=== PATIENT | female | born 1970 | race Caucasian/White ===

== ENCOUNTER → 2017-10-29 14:42 | Outpatient (REF) | payer BC, SELFPAY ==
[2017-10-29 17:34] LABS: Basophils % 0.6 % (0.1-2.0); Eosinophils # 0.4 K/mm3 (0.0-0.4); Eosinophils % 6.8 % (0.1-12.0); Hematocrit 37.9 % (37.0-47.0); Hemoglobin 12.4 g/dL (12.2-16.2); Lymphocytes # 2.1 K/mm3 (0.7-4.5); Lymphocytes % 32.5 K/mm3 (10-50); Mean Corpuscular HGB Conc 32.6 g/dL (31.8-35.4); Mean Corpuscular Hemoglobin 27.8 pg (27.0-31.2); Mean Corpuscular Volume 85.4 fl (81-99); Mean Platelet Volume 8.7 fl (7.4-10.4); Monocytes # 0.4 K/mm3 (0.1-1.0); Monocytes % 5.9 % (1.7-9.3); Neutrophils # 3.5 K/mm3 (1.8-7.8); Neutrophils % 54.2 % (37.0-80.0); Platelet Count 208 K/mm3 (142-424); Red Blood Count 4.44 M/mm3 (4.20-5.40); Red Cell Distribution Width 13.4 % (11.5-17.5); White Blood Count 6.4 K/mm3 (4.8-10.8)
[2017-10-29 18:08] LABS: Alanine Aminotransferase 31 U/L (12-78); Albumin Level 3.6 gm/dL (3.4-5.0); Albumin/Globulin Ratio 1.1 (1.1-1.8); Alkaline Phosphatase 65 U/L (46-116); Anion Gap 13.6 mEq/L (5-15); Aspartate Amino Transferase 21 U/L (15-37); Bilirubin,Total 0.3 mg/dL (0.2-1.0); Blood Urea Nitrogen 10 mg/dL (7-18); Calcium 9.2 mg/dL (8.5-10.1); Carbon Dioxide 29 mmol/L (21.0-32.0); Chloride 102 mmol/L (98-107); Chol/HDL Ratio 4.3 (1-3.5); Cholesterol 168 mg/dL (140-200); Creatinine,Serum 0.74 mg/dL (0.55-1.02); Estimated Glomerular Filt Rate 84 ml/min (>60); Free T4 (Free Thyroxine) 0.92 ng/dl (0.76-1.46); GFR (African American) 102 ML/MIN (>60); Globulin 3.4 gm/dl (1.3-3.2); Glucose 134 mg/dL (74-106); HDL Cholesterol 39 mg/dL (29-89); LDL Cholesterol 86 mg/dL (0-130); Potassium 3.6 mmoL/L (3.5-5.1); Sodium 141 mmol/L (136-145); Thyroid Stimulating Hormone 1.72 uIU/ml (0.358-3.740); Triglycerides 215 mg/dL (30-200); VLDL Cholesterol 43 mg/dL (0-40)
[2017-10-29 18:22] LABS: Hemoglobin A1C 5.6 % (0.0-7.0)
[2017-10-31 20:25] LABS: Vitamin D 25 Hydroxy 23.7 ng/mL (30.0-100.0)
== END ==
LOC: LAB 14:42
PROVIDERS: Visit Provider Nurse Practitioner Family
DX: E11.9 Type 2 diabetes mellitus without complications (principal); R53.83 Other fatigue
CPT/HCPCS: 80053; 80061; 82652; 83036; 84439; 84443; 85025

== ENCOUNTER 2018-01-07 07:00 | Outpatient (RCR) | payer BC, SELFPAY ==
--- NOTE | 2017-11-19 08:42 | HMH.OTOPEV ---
OT Inpatient Evaluation Rehab OT Outpatient Eval Start: 11/19/17 08:26 Freq: Status: Active Protocol: Document 11/19/17 08:27 TFRY (Rec: 11/19/17 08:42 TFRY [id number]) Electronically Signed By Iliana Charles, OT 11/19/17 08:27 Outpatient Therapy Subjective History Subjective History THIS IS A 47 YEAR OLD RIGHT HANDED FEMALE REFERRED TO OCCUPATIONAL THERAPY FOR LATERAL EPICONDYLITIS OF LEFT ELBOW. PATIENT REPORTS REACHING OVERHEAD AND PULLING MUSCLE SHE THOUGHT BUT HAS CONTINUED TO GET WORSE OVER THE PAST MONTH. Chief Complaint Pain Symptom Type Ache Throb Symptoms Relieved By Rest/Positioning Symptoms Aggravated By Physical Activity Prior Functional Limitations None Current Functional Limitations Reaching Lifting Housework Dressing Driving Sleeping Symptom Description Constant but Variable Level of pain today (0-10) 5 Pain scale - at its best (0-10) 3 Pain scale - at its worst (0-10) 8 Shoulder/Elbow Eval Shoulder Objective Measurements Elbow Objective Measurements Elbow ROM Left full ROM elbow exam standard left pain with active ROM elbow exam standard left pain with passive ROM elbow exam left standard Elbow Extension Active Range of Motion ( WFL degrees) Elbow Extension Passive Range of Motion WFL (degrees) Elbow Flexion Active Range of Motion ( WFL degrees) Elbow Flexion Passive Range of Motion ( WFL degrees) Elbow Pronation of Forearm Range of WFL Motion (degrees) Elbow MMT Elbow Flexion Strength Grade 4 Good Biceps Brachii Strength Grade 4 Good Brachioradialis Strength Grade 4 Good Brachialis Strength Grade 4 Good Brachialis Strength Grade (Flexion) 4 Good Elbow Extension Strength Grade 4 Good Triceps Brachii Strength Grade 4 Good OT Outpatient Assessment Impairments Problems/Impairments Palpation Tenderness Impaired Strength Impaired Lifting Impaired Dressing Impaired Shower/Bathing Impaired Household Care Impaired Work Activities Subjective C/O
== END 2018-01-07 07:01 | disposition home or self-care (01) ==
LOC: OT 07:00
PROVIDERS: Family Provider Physician Assistant; PCP Physician Assistant; Visit Provider Physician Assistant
DX: M77.12 Lateral epicondylitis, left elbow (principal)
CPT/HCPCS: 97014; 97033; 97110; 97140; 97165; G0283

== ENCOUNTER → 2018-02-09 09:28 | Outpatient (POV) | payer BC, SELFPAY | PROVIDERS: Visit Provider Otolaryngology | DX: Z00.00 Encounter for general adult medical examination without abnormal findings (principal) ==

== ENCOUNTER → 2018-02-24 20:08 | Outpatient (REF) | payer BC, SELFPAY | LOC: LAB 20:08 | PROVIDERS: Visit Provider Nurse Practitioner Family | DX: J02.9 Acute pharyngitis, unspecified (principal) ==

== ENCOUNTER → 2018-08-29 11:35 | Outpatient (CLI) | payer OTHER, SELFPAY ==
--- NOTE | 2018-08-29 09:12 | XR_ITS ---
XR knee RT 3V HISTORY: Medial knee pain ITS.REASON: KNEE PAIN ORDERING PHYSICIAN: Aranza King PATIENT AGE: 48 years COMPARISON: None FINDINGS: There are moderate osteoarthritic changes involving all 3 compartments with osteophyte formation and slight decrease in the joint spaces. No fracture or dislocation evident. No lytic or blastic change. IMPRESSION: Moderate tricompartmental osteoarthritis
== END ==
PROVIDERS: PCP Physician Assistant; Visit Provider Nurse Practitioner Family
DX: M25.561 Pain in right knee (principal)
CPT/HCPCS: 73562

== ENCOUNTER → 2018-09-02 13:56 | Outpatient (CLI) | payer OTHER, SELFPAY ==
--- NOTE | 2018-09-02 14:09 | XR_ITS ---
XR knee RT 4V HISTORY: Right knee pain and swelling ITS.REASON: right knee 4 views weightbearing ORDERING PHYSICIAN: Yann Aguirre MD PATIENT AGE: 48 years COMPARISON: 08/29/2018 FINDINGS: There are moderate tricompartmental osteoarthritic changes similar to the previous exam. No acute fracture or dislocation is evident. There is a 6 mm calcific density along the posterior aspect of the proximal tibia and may represent a loose intra-articular body versus atypical osteophyte. IMPRESSION: No change moderate osteoarthritis
== END ==
PROVIDERS: PCP Emergency Medicine; Visit Provider Orthopaedic Surgery
DX: M25.561 Pain in right knee (principal)
CPT/HCPCS: 73564

== ENCOUNTER 2019-09-25 09:45 | Emergency (ER) | payer MEDICAID, SELFPAY ==
[2019-09-25 09:47] VITALS: BP 145/92; PULSE 72; RESP 20; TEMP 36.8; O2SAT 98; BMI 42.5
--- NOTE | 2019-09-25 10:22 | HMH.EDDIZZ ---
ED Disposition Clinical Impression: Benign paroxysmal positional vertigo, Hypertension, Otitis media Disposition: Home, Self-Care Condition on Discharge: Good Instructions: Vertigo Prescriptions: Amoxicillin [Amoxicillin 875MG Tab] 875 mg PO Q12H #14 tab Transmission Status: Pending to [email or web address] # Meclizine HCl 25 mg PO TID 10 Days #30 tab Transmission Status: Pending to [email or web address] # Referrals: Kim Roth PA [Primary Care Provider] - - Critical Care Critical Care Time: No Attestation: On 09/25/19, the high probability of a clinically significant, sudden or life threatening deterioration of the following system(s) required my full and direct attention, intervention and personal management. The time I documented below is in addition to time spent performing reported procedures but includes the following listed in this critical care notation. Medical Decision Making - Medical Records Medical records reviewed: Yes: I reviewed the patient's medical records. - Enoch Inquiry Pt receiving controlled substance: No Vital Signs: 09/25/19 09:47 Temperature 98.2 F Temperature Source Oral Pulse Rate [Right] 72 Respiratory Rate 20 Blood Pressure [Right Arm] 145/92 H Blood Pressure Mean [Right Arm] 109 02 Sat by Pulse Oximetry 98 - Lab Data Lab results reviewed: Yes: I reviewed the patient's lab results. Orders (Tests/Meds): ED MEDICATIONS Generic Name Dose Route Start Last Admin Trade Name Freq PRN Reason Stop Dose Admin Sodium Chloride 1,000 mls @ 999 mls/hr 09/25/19 10:30 Sod Chlor 0.9% 1000ml Bag IV 09/25/19 11:30 .Q1H1M CEE Discontinued Medications Generic Name Dose Route Start Last Admin Trade Name Freq PRN Reason Stop Dose Admin Meclizine HCl 25 mg 09/25/19 10:19 Antivert 25mg Tablet PO 09/25/19 10:20 ONCE ONE Ondansetron HCl 4 mg 09/25/19 10:19 Zofran 4mg/2ml Vial IV 09/25/19 10:20 ONCE ONE Dizzy HPI - General Chief Complaint: Dizziness Stated Complaint: vertigo,nausea Time Seen by Provider: 09/25/19 10:23 Mode of Arrival: Ambulatory Source of Information: Patient Limitations: No Limitations Description of Symptoms (Recalled from ER Triage Doc. by RN): C/O pressure and pain in both ears that is causing her vertigo. States this has happened to her before and she was dx with miernes disease. Denies soa, cough or fever. - History of Present Illness HPI Narrative: 49-year-old female presents the ED with acute vertigo. She has had vertigo in the past she said at 1 time during her life that lasted for 30 days and she saw 3 different specialist. Patient is complaining of right earache as well. She stated the earache started about 2 days ago and is progressively gotten worse to her presentation today. She rates her pain 5 out of 10 describes it as a sharp and fullness sensation and warmth sensation. She denies any alleviating or exacerbating factors. Patient denies any recent nausea vomiting diarrhea patient denies any loss of balance patient denies any recent subjective or objective fevers. - Related Data Previous Rx's Medication Instructions Recorded metformin 500 mg tablet 500 mg PO BID #180 tab 03/30/18 lisinopril 20 1 tab PO DAILY #90 tab 04/25/19 mg-hydrochlorothiazide 12.5 mg tablet Cefdinir [Omnicef 300mg Capsule] 300 mg PO BID 10 Days #20 cap 08/23/19 predniSONE [Deltasone 20mg 20 mg PO BID 30 Days #60 tab 08/23/19 tablet] Amoxicillin [Amoxicillin 875MG 875 mg PO Q12H #14 tab 09/25/19 Tab] Meclizine HCl 25 mg PO TID 10 Days #30 tab 09/25/19 Allergies Allergy/AdvReac Type Severity Reaction Status Date / Time erythromycin base Allergy Intermediate I-HIVES Verified 08/26/19 10:04 ibuprofen Allergy Intermediate SWELLING Verified 08/26/19 10:04 levofloxacin [From LEVAQUIN] Allergy Unknown S-DIFF. Verified 08/26/19 10:04 BREATHING [facility] History - Hepat
[2019-09-25 11:41] VITALS: BP 123/85; PULSE 85; RESP 20; TEMP 36.8; O2SAT 98
== END 2019-09-25 11:43 | disposition home or self-care (01) ==
PROVIDERS: Emergency Provider Family Medicine; PCP Physician Assistant
DX: H81.11 Benign paroxysmal vertigo, right ear (principal); H66.91 Otitis media, unspecified, right ear; E11.9 Type 2 diabetes mellitus without complications; I10 Essential (primary) hypertension; Z79.899 Other long term (current) drug therapy
CPT/HCPCS: 96365; 96375; 99281; 99282; J2405

== ENCOUNTER 2019-11-06 16:16 | Emergency (ER) | payer MEDICAID, SELFPAY ==
[2019-11-06 16:18] VITALS: BP 159/83; PULSE 76; RESP 20; TEMP 37.1; O2SAT 98; BMI 42.5
--- NOTE | 2019-11-06 16:31 | HMH.EDUTC ---
[facility] [place] Disposition Clinical Impression: Otitis media Qualifiers: Otitis media type: unspecified Laterality: right Qualified Code(s): H66.91 - Otitis media, unspecified, right ear Sinusitis Qualifiers: Sinusitis location: unspecified location Chronicity: unspecified Qualified Code(s): J32.9 - Chronic sinusitis, unspecified Disposition: Home, Self-Care Condition on Discharge: Good Instructions: Sinusitis, Sinus Headache, Middle Ear Infection, DI for Sinusitis, Prednisone, Amoxicillin and Clavulanic Acid Additional Instructions: *Monitor Temp, Over the counter Motrin or Tylenol as directed/as needed Tylenol every 4 hours and Motrin every 6 hours (as long as your family doctor has told you that you can take it) for fever or pain. and straight to ER if unable to lower temp less than 101.0 after medication given *Warm salt water gargles may help to soothe the throat *Throat Lozenges *Warm fluids like tea with honey may help to soothe the throat *Sleep elevated *Humidifier/Vaporizer Follow up with family doctor if no improvement and for further evaluation of new onset butterfly like rash on your nose and cheeks Return if needed Straight to ER if any life threatening symptoms Follow up IMMEDIATELY for new or worsening symptoms or no Noticeable improvement over the next 48-72 hours. 911 for difficulty breathing or swallowing Prescriptions: Amoxicillin/Potassium Clav [Augmentin 875-125 Tablet] 1 tab PO Q12H 7 Days #14 tab Transmission Status: Sent to [facility] # predniSONE [Deltasone 10mg tablet] 10 mg PO BID 5 Days #10 tab Transmission Status: Sent to [facility] # Referrals: Kim Roth PA [Primary Care Provider] - As needed Time of Disposition: 16:43 Medical Decision Making - Enoch Inquiry Pt receiving controlled substance: No Enoch was queried for this patient: No Vital Signs: 11/06/19 16:18 Temperature 98.7 F Temperature Source Oral Pulse Rate [Radial] 76 Respiratory Rate 20 Blood Pressure [Right Arm] 159/83 H Blood Pressure Mean [Right Arm] 108 Blood Pressure Source [Right Arm] Automatic Cuff Blood Pressure Position [Right Arm] Sitting 02 Sat by Pulse Oximetry 98 Oxygen Delivery Method Room Air Medical Decision Narrative: Upon examination noticed patient had butterfly rash on cheeks and across nose, discussed with patient when she noticed the rash and patient reported has been on and off for about 3 months recommended follow up with PCP for further evaluation and examination and patient agreed [facility] [place] HPI - General Stated complaint: Sinus pressure,Loss of voice, ears pain Time Seen by Provider: 11/06/19 16:31 Mode of Arrival: Ambulatory Source of Information: Patient Limitations: No Limitations Description of Symptoms (Recalled from Triage Doc. by RN): sinus pressure, right ear pain, losing voice HEENT Symptoms (Recalled from RN notes): Yes Resp Symptoms (Recalled from RN notes): No Skin Symptoms (Recalled from RN notes): No MS Symptoms (Recalled from RN notes): No Functional Status (Recalled from RN notes): wnl - History of Present Illness Provider Complaint: Patient states that she has been having sinus pain and pressure for over a week now hurting into her teeth and having bilateral ear pain with pain worse in right ear and today she woke up and she had lost her voice States that the pressure in her sinuses is worse so she came in - Related Data Previous Rx's Medication Instructions Recorded metformin 500 mg tablet 500 mg PO BID #180 tab 03/30/18 lisinopril 20 1 tab PO DAILY #90 tab 04/25/19 mg-hydrochlorothiazide 12.5 mg tablet Cefdinir [Omnicef 300mg Capsule] 300 mg PO BID 10 Days #20 cap 08/23/19 predniSONE [Deltasone 20mg 20 mg PO BID 30 Days #60 tab 08/23/19 tablet] Amoxicillin [Amoxicillin 875MG 875 mg PO Q12H #14 tab 09/25/19 Tab] Meclizine HCl 25 mg PO TID 10 Days #30 tab 09/25/19 estradiol 0.1 mg/24 hr weekly 1 patch T
[2019-11-06 16:49] VITALS: BP 159/83; PULSE 76; RESP 20; TEMP 37.1; O2SAT 98
== END 2019-11-06 16:50 | disposition home or self-care (01) ==
PROVIDERS: Emergency Provider Nurse Practitioner; PCP Physician Assistant
DX: H66.91 Otitis media, unspecified, right ear (principal); J32.9 Chronic sinusitis, unspecified; E11.9 Type 2 diabetes mellitus without complications; I10 Essential (primary) hypertension; Z79.84 Long term (current) use of oral hypoglycemic drugs; Z88.1 Allergy status to other antibiotic agents
CPT/HCPCS: 99201

== ENCOUNTER → 2019-11-07 14:59 | Outpatient (CLI) | payer MEDICAID, SELFPAY ==
[2019-11-07 16:12] LABS: Basophils # 0.1 K/mm3 (0-0.2); Basophils % 0.6 % (0.1-2.0); Eosinophils # 0.3 K/mm3 (0.0-0.4); Eosinophils % 4.5 % (0.1-12.0); Hematocrit 36.3 % (37.0-47.0); Hemoglobin 12.2 g/dL (12.2-16.2); Lymphocytes # 2.1 K/mm3 (0.7-4.5); Lymphocytes % 28.4 % (10-50); Mean Corpuscular HGB Conc 33.5 g/dL (31.8-35.4); Mean Corpuscular Hemoglobin 29.3 pg (27.0-31.2); Mean Corpuscular Volume 87.4 fl (81-99); Mean Platelet Volume 8.4 fl (7.4-10.4); Monocytes # 0.2 K/mm3 (0.1-1.0); Monocytes % 3.3 % (1.7-9.3); Neutrophils # 4.6 K/mm3 (1.8-7.8); Neutrophils % 63.1 % (37.0-80.0); Platelet Count 187 K/mm3 (142-424); Red Blood Count 4.16 M/mm3 (4.20-5.40); Red Cell Distribution Width 14.1 % (11.5-17.5); White Blood Count 7.3 K/mm3 (4.8-10.8)
[2019-11-07 17:17] LABS: Chloride 102 mmol/L (98-107); Sodium 136 mmol/L (136-145)
[2019-11-07 17:18] LABS: Potassium 3.7 mmoL/L (3.5-5.1)
[2019-11-07 17:20] LABS: Alanine Aminotransferase 43 U/L (12-78); Albumin/Globulin Ratio 1.4 (1.1-1.8); Alkaline Phosphatase 72 U/L (38-126); Anion Gap 10.7 mEq/L (5-15); Aspartate Amino Transferase 33 U/L (14-36); Bilirubin,Total 0.6 mg/dl (0.2-1.3); Blood Urea Nitrogen 11 mg/dl (7-17); Calcium 8.8 mg/dl (8.4-10.2); Carbon Dioxide 27 mmol/L (22.0-30.0); Estimated Glomerular Filt Rate 106 ml/min (>60); GFR (African American) 129 ML/MIN (>60); Globulin 2.8 g/dL (1.3-3.2); Glucose 168 mg/dl (74-100); Total Protein,Serum 6.8 g/dl (6.3-8.2)
[2019-11-07 17:52] LABS: Thyroid Stimulating Hormone 1.54 uIU/mL (0.465-4.68)
[2019-11-07 18:10] LABS: Erythrocyte Sedimentation Rate 25 mm/hr (0-20)
[2019-11-09 11:40] LABS: Hemoglobin A1C 5.7 % (4.0-6.0)
[2019-11-09 14:11] LABS: Anti-Centromere B Antibodies <0.2 AI (0.0-0.9); Anti-Jo-1 <0.2 AI (0.0-0.9); Anti-Smith Antibody <0.2 AI (0.0-0.9); Antichromatin Antibodies <0.2 AI (0.0-0.9); Antiscleroderma-70 Antibodies <0.2 AI (0.0-0.9); RNP Antibodies 0.5 AI (0.0-0.9); Sjogren's Anti-SS-A <0.2 AI (0.0-0.9); Sjogren's Anti-SS-B <0.2 AI (0.0-0.9)
[2019-11-09 18:09] LABS: Anti-DNA (DS) Ab Qn <1 IU/mL (0-9); RA Latex Turbid. <10.0 IU/mL (0.0-13.9)
[2019-11-10 01:14] LABS: PTT-LA 30.6 sec (0.0-51.9); dRVVT 42.2 sec (0.0-47.0)
[2019-11-10 10:13] LABS: Anti-Cyclic Citrullinated Pept 4 units (0-19); Lupus Reflex Interpretation Comment: (.)
== END ==
PROVIDERS: Visit Provider Physician Assistant
DX: R21 Rash and other nonspecific skin eruption (principal); R53.83 Other fatigue; R73.09 Other abnormal glucose
CPT/HCPCS: 36415; 80053; 83036; 84443; 85025; 85613; 85651; 86140; 86200; 86225; 86235; 86431

== ENCOUNTER 2019-12-05 13:03 | Emergency (ER) | payer MEDICAID, SELFPAY ==
[2019-12-05 13:04] VITALS: BP 157/91; PULSE 66; RESP 20; TEMP 36.6; O2SAT 98; BMI 42.5
--- NOTE | 2019-12-05 13:32 | HMH.EDUTC ---
[facility] [place] Clinical Impression: Gastroenteritis Disposition: Home, Self-Care Condition on Discharge: Good Instructions: Viral Gastroenteritis, DI for Viral Gastroenteritis -- Adult Additional Instructions: Drink plenty of fluids. Take tylenol or ibuprofen for pain or fever. Take the medications as directed. Follow up with your regular doctor. GO TO THE ER FOR ANY WORSENING SYMPTOMS Prescriptions: Ondansetron [Zofran 4mg ODT] 4 mg PO Q8HP PRN #20 tab.rapdis PRN Reason: Nausea Transmission Status: Received by [facility] #[id number] Referrals: Kim Roth PA [Primary Care Provider] - Forms: Work/School Release Time of Disposition: 14:42 Medical Decision Making - Medical Records Medical records reviewed: No: I reviewed the patient's medical records. - Enoch Inquiry Pt receiving controlled substance: No Vital Signs: 12/05/19 13:04 12/05/19 15:03 Temperature 97.9 F 97.9 F Temperature Source Oral Pulse Rate 66 Pulse Rate [Brachial] 66 Respiratory Rate 20 20 Blood Pressure 157/91 H Blood Pressure [Right Arm] 157/91 H Blood Pressure Mean [Right Arm] 113 Blood Pressure Source [Right Arm] Automatic Cuff Blood Pressure Position [Right Arm] Supine 02 Sat by Pulse Oximetry 98 Oxygen Delivery Method Room Air - Lab Data Lab Results 12/05/19 15:00: Stl Aeromonas (PCR) Not detected, Stl C. cayetanensis PCR Not detected, Stool Rotavirus (PCR) Not detected, Stl Adenov F 40/41 PCR Not detected, Stool Astrovirus (PCR) Not detected, Stool Campylobacter PCR Not detected, Stl C.difficile Tox PCR Not detected, Stool Cryptosporidium PCR Not detected, Stl E.coli Shiga Tox PCR Not detected, Stool E coli O157 PCR Not detected, Stl Enterotoxigenic E PCR Not detected, Stool EPEC (PCR) Not detected, Stool EAEC (PCR) Not detected, Stl E. histolytica PCR Not detected, Stool Giardia Lamblia PCR Not detected, Stool Salmonella PCR Not detected, Stool Sapovirus (PCR) Not detected, Stl P. shigelloides PCR Not detected, Stl Shigella/EIEC PCR Not detected, St Y.enterocolitica PCR Not detected, Stool Vibrio (PCR) Not detected, Stl Vibrio cholerae PCR Not detected, Stl Norovirus GI/GII PCR Not detected Orders (Tests/Meds): ED MEDICATIONS Discontinued Medications Generic Name Dose Route Start Last Admin Trade Name Fatimah PRN Reason Stop Dose Admin Sodium Chloride 1,000 mls @ 999 mls/hr 12/05/19 14:45 12/05/19 14:15 Sod Chlor 0.9% 1000ml Bag IV 12/05/19 15:45 999 mls/hr .Q1H1M CEE Administration Ondansetron HCl 4 mg 12/05/19 14:41 12/05/19 14:15 Zofran 4mg Odt SL 12/05/19 14:42 4 mg ONCE ONE Administration [facility] [place]PI - General Stated complaint: vomiting, diar, ear pain Time Seen by Provider: 12/05/19 13:05 - History of Present Illness Provider Complaint: She c/o right ear pain for the past 3 days. Then, last night she began vomiting and having diarrhea. She believes she has food poisoning. The last time she vomited was early this morning. She has had diarrhea repeatedly thru out today. - Related Data Previous Rx's Medication Instructions Recorded metformin 500 mg tablet 500 mg PO BID #180 tab 03/30/18 lisinopril 20 1 tab PO DAILY #90 tab 04/25/19 mg-hydrochlorothiazide 12.5 mg tablet Meclizine HCl 25 mg PO TID 10 Days #30 tab 09/25/19 estradiol 0.1 mg/24 hr weekly 1 patch TRANSDERMA QWEEK #4 each 10/05/19 transdermal patch Amoxicillin/Potassium Clav 1 tab PO Q12H 7 Days #14 tab 11/06/19 [Augmentin 875-125 Tablet] clindamycin phosphate 1 % topical 1 applic TOPICAL BID #30 g 11/07/19 gel Ondansetron [Zofran 4mg ODT] 4 mg PO Q8HP PRN #20 tab.rapdis 12/05/19 Allergies Allergy/AdvReac Type Severity Reaction Status Date / Time erythromycin base Allergy Intermediate I-HIVES Verified 11/07/19 10:52 ibuprofen Allergy Intermediate SWELLING Verified 11/07/19 10:52 levofloxacin [From LEVAQUIN] Allergy Unknown S-DIFF. Verified 0
[2019-12-05 15:03] VITALS: BP 157/91; PULSE 66; RESP 20; TEMP 36.6; O2SAT 98
[2019-12-05 15:31] LABS: Adenovirus F 40/41, stool Not Detected (NotDetected); Astrovirus Not Detected (NotDetected); Campylobacter Not Detected (NotDetected); Clostridium Difficile A/B, PCR Not Detected (NotDetected); Cryptosporidium Not Detected (NotDetected); Cyclospora Cayetanesis Not Detected (NotDetected); Entamoeba histolytica Not Detected (NotDetected); Enteroaggregative E coli Not Detected (NotDetected); Enteropathogenic E coli Not Detected (NotDetected); Enterotoxigenic E coli Not Detected (NotDetected); Giardia lamblia Not Detected (NotDetected); Norovirus Not Detected (NotDetected); Plesimonas Shigalloides, PCR Not Detected (NotDetected); Rotavirus A Not Detected (NotDetected); Salmonella, PCR Not Detected (NotDetected); Sapovirus Not Detected (NotDetected); Shiga-like toxin E coli Not Detected (NotDetected); Shigella Enterovasive E coli Not Detected (NotDetected); Vibrio Cholerae Not Detected (NotDetected); Vibrio, PCR Not Detected (NotDetected); Yersinia Entercolitica, PCR Not Detected (NotDetected)
== END 2019-12-05 15:05 | disposition home or self-care (01) ==
PROVIDERS: Emergency Provider Nurse Practitioner Family; PCP Physician Assistant
DX: K52.9 Noninfective gastroenteritis and colitis, unspecified (principal); E11.9 Type 2 diabetes mellitus without complications; I10 Essential (primary) hypertension
CPT/HCPCS: 87507; 96365; 99202

== ENCOUNTER → 2019-12-26 07:44 | Outpatient (CLI) | payer MEDICAID, SELFPAY ==
--- NOTE | 2019-12-26 07:45 | CA_ITS ---
APPROVED REPORT EXAM: Comprehensive 2D, Doppler, and color-flow Echocardiogram Patternmaker Pressure Cast: Berna Wick CRT Ht: 5 ft 8 in Wt: 301lbs BSA: 2.43 BP: 162/108 mmHg Indications: Shortness of Breath, Diabetes, Palpitations, Hypertension/HDD 2D Dimensions LVOT 2.05 cm (M/F) 1.5-2.5 M-Mode Dimensions RVDd 2.28 cm (0.9-2.6) LVDd 5.54 cm (3.5-5.7) LVDs 4.44 cm (3.5-5.7) IVSd 1.14 cm (0.6-1.1) PWd 0.53 cm (0.6-1.1) EF (Teich) 40.20% FS 19.90% EDV (Teich) 149.90 mL ESV (Teich) 89.60 mL LV Diastology E/A Ratio 0.88 Mitral Valve MV A Velocity 89.00 (40-130 cm/s) Left Ventricle Technically difficult study because of the patient factors and poor acoustic windows. Endocardial surfaces are poorly visualized. Left atrium is mildly enlarged, left ventricle is normal size, mild concentric left ventricular hypertrophy, visually estimated ejection fraction 50%, there appears to be moderate hypokinesis involving the distal septum and apical wall. A repeat study with Definity contrast is recommended. Grade 1 diastolic dysfunction seen without tissue Doppler evidence of raise left atrial pressure. Right Ventricle Right atrium and right ventricular normal size and contractility. Aortic Valve Aortic valve is minimally thickened and fibrosed, there is no aortic stenosis or aortic insufficiency. Mitral Valve Mitral valve is grossly normal, there is mild mitral regurgitation. Tricuspid Valve Tricuspid valve is grossly normal, there is mild tricuspid regurgitation, tricuspid regurgitation jet velocity is inadequate for calculation of the right ventricular systolic pressure. Pulmonic Valve Pulmonic valve is poorly visualized. Great Vessels Aortic root is normal size. Pericardium No significant pericardial effusion noted. Conclusion 1. Technically difficult study because of the patient factors and poor acoustic windows, repeat study with Definity contrast is recommended. 2. Mildly enlarged left atrium, normal left ventricular size, mild concentric left ventricular hypertrophy, visually estimated ejection fraction 50% with possible segmental wall motion abnormalities as described above. Grade 1 diastolic dysfunction seen without tissue Doppler evidence of raise left atrial pressure. 3. Mild mitral and tricuspid regurgitation. 4. No significant pericardial effusion noted. Electronically signed by : Anthony Dickens, 12/26/2019 17:43:50
== END ==
PROVIDERS: PCP Physician Assistant; Visit Provider Physician Assistant
DX: R06.00 Dyspnea, unspecified (principal); R60.9 Edema, unspecified
CPT/HCPCS: 93306

== ENCOUNTER 2019-12-31 18:59 | Emergency (ER) | payer MEDICAID, SELFPAY ==
[2019-12-31 19:09] VITALS: BP 160/92; PULSE 71; RESP 20; TEMP 36.7; O2SAT 95; BMI 38.0
--- NOTE | 2019-12-31 19:36 | HMH.EDUTC ---
[facility] [place] Clinical Impression: Otitis media Qualifiers: Otitis media type: suppurative Chronicity: acute Laterality: right Recurrence: non-recurrent Spontaneous tympanic membrane rupture: without spontaneous rupture Qualified Code(s): H66.001 - Acute suppurative otitis media without spontaneous rupture of ear drum, right ear Disposition: Home, Self-Care Condition on Discharge: Good Instructions: Middle Ear Infection Additional Instructions: Start antibiotic as soon as possible and be sure to take as ordered for full length of time even though he should start feeling better in 24-48 hours. Tylenol or Motrin as needed for pain or fever Encourage fluids, water, Gatorade, Powerade, Pedialyte if /toddler/child Warm compresses often helps when placed over ear Return immediately for new or worsening symptoms no noticeable improvement in 48-72 hours and in 10-14 days to ensure the ears are return to baseline. Follow-up with primary care Prescriptions: Amoxicillin [Amoxicillin 500mg Tab] 500 mg PO BID 10 Days #20 tab Prescription Printed Referrals: Kim Roth PA [Primary Care Provider] - Time of Disposition: 19:41 Medical Decision Making - Enoch Inquiry Pt receiving controlled substance: No Vital Signs: 12/31/19 19:09 Temperature 98.0 F Temperature Source Oral Pulse Rate [Radial] 71 Respiratory Rate 20 Blood Pressure [Right Arm] 160/92 H Blood Pressure Mean [Right Arm] 114 Blood Pressure Source [Right Arm] Automatic Cuff Blood Pressure Position [Right Arm] Sitting 02 Sat by Pulse Oximetry 95 Oxygen Delivery Method Room Air [facility] [place] HPI - General Chief complaint: Ear Stated complaint: Ear pain Time Seen by Provider: 12/31/19 19:36 Mode of Arrival: Ambulatory Source of Information: Patient Limitations: No Limitations Description of Symptoms (Recalled from Triage Doc. by RN): right ear pain, sinus pain HEENT Symptoms (Recalled from RN notes): Yes Resp Symptoms (Recalled from RN notes): No Skin Symptoms (Recalled from RN notes): No MS Symptoms (Recalled from RN notes): No Functional Status (Recalled from RN notes): wnl - History of Present Illness Provider Complaint: 49 yr old female presents for rt ear pain and tenderness to jaw and around neck. - Related Data Previous Rx's Medication Instructions Recorded metformin 500 mg tablet 500 mg PO BID #180 tab 03/30/18 amoxicillin 875 mg-potassium 1 tab PO BID 10 Days #20 tab 12/07/19 clavulanate 125 mg tablet fluticasone propionate 50 1 spray INTRANASAL BID 30 Days 12/07/19 mcg/actuation nasal #9.9 g spray,suspension furosemide 20 mg tablet 20 mg PO DAILY #15 tab 12/07/19 lisinopril 20 1 tab PO DAILY #90 tab 12/15/19 mg-hydrochlorothiazide 12.5 mg tablet Amoxicillin [Amoxicillin 500mg Tab] 500 mg PO BID 10 Days #20 tab 12/31/19 Allergies Allergy/AdvReac Type Severity Reaction Status Date / Time erythromycin base Allergy Intermediate I-HIVES Verified 12/07/19 10:40 ibuprofen Allergy Intermediate SWELLING Verified 12/07/19 10:40 levofloxacin [From LEVAQUIN] Allergy Unknown S-DIFF. Verified 12/07/19 10:40 BREATHING - Worker's Comp Is this a Worker's Comp case?: No [facility] History - Hepatitis A Screen Drug use history?: No High risk sexual behaviors?: No History of sexually transmitted infection?: No Currently employed?: No Childcare worker?: No Do you have indoor plumbing?: Yes Do you have electricity?: Yes Attestation statement:: This patient has been screened for Hepatitis A risk factors. I have reviewed the patient's past medical history: Yes Medical History: Reports:: Cancer, Diabetes Mellitus Type 2, Hypertension Denies:: Diabetes Mellitus Type 1, MRSA Comment: Hypertension. Shingles Other Surgeries: Yes: Cancer Surgery, Cholecystectomy, Colonoscopy, , Hysterectomy-Total, Hysterectomy-Partial, Tubal Ligation Amputation: No Fractures: No Comment: Primary --1993. Repeat ,
[2019-12-31 20:20] VITALS: BP 160/92; PULSE 71; RESP 20; TEMP 36.7; O2SAT 95
== END 2019-12-31 20:22 | disposition home or self-care (01) ==
PROVIDERS: Emergency Provider Nurse Practitioner Family; PCP Physician Assistant
DX: H66.001 Acute suppurative otitis media without spontaneous rupture of ear drum, right ear (principal); E11.9 Type 2 diabetes mellitus without complications; Z79.84 Long term (current) use of oral hypoglycemic drugs; I10 Essential (primary) hypertension; Z88.1 Allergy status to other antibiotic agents; Z90.49 Acquired absence of other specified parts of digestive tract; Z90.710 Acquired absence of both cervix and uterus; Z79.899 Other long term (current) drug therapy
CPT/HCPCS: 96372; 99201

== ENCOUNTER → 2020-01-03 10:41 | Outpatient (CLI) | payer MEDICAID, SELFPAY ==
--- NOTE | 2020-01-03 10:51 | CA_ITS ---
APPROVED REPORT EXAM: Limited 2D Echocardiogram with contrast Human Resources Clerk: Lily Tan RDCS Ht: 5 ft 8 in Wt: 301lbs BSA: 2.43 BP: 162/100 mmHg Indications: repeat with definity Conclusion 1. Limited study with Definity contrast is obtained. 2. Normal left ventricular size, preserved left ventricular systolic function, visually estimated ejection fraction 55% with no regional wall motion abnormality, there is no left ventricular thrombus seen. Electronically signed by : Anthony Dickens, 01/03/2020 18:08:41
== END ==
PROVIDERS: PCP Physician Assistant; Visit Provider Physician Assistant
DX: R06.00 Dyspnea, unspecified (principal); I10 Essential (primary) hypertension
CPT/HCPCS: 93308

== ENCOUNTER → 2020-04-13 12:42 | Outpatient (CLI) | payer SELFPAY | PROVIDERS: PCP Physician Assistant; Visit Provider Physician Assistant | DX: G47.33 Obstructive sleep apnea (adult) (pediatric) (principal); R40.0 Somnolence | CPT/HCPCS: 95806 ==

== ENCOUNTER 2020-08-20 15:10 | Emergency (ER) | payer SELFPAY ==
[2020-08-20 15:26] VITALS: BP 135/70; PULSE 73; RESP 14; TEMP 36.8; O2SAT 96; BMI 44.4
--- NOTE | 2020-08-20 15:39 | HMH.EDUTC ---
[facility] [place] Clinical Impression: Sinusitis Qualifiers: Sinusitis location: unspecified location Chronicity: unspecified Qualified Code(s): J32.9 - Chronic sinusitis, unspecified Otitis media Qualifiers: Otitis media type: unspecified Laterality: bilateral Qualified Code(s): H66.93 - Otitis media, unspecified, bilateral Disposition: Home, Self-Care Condition on Discharge: Good Instructions: Middle Ear Infections (Alternative Therapy), Sinusitis, Middle Ear Infection, DI for Sinusitis, Amoxicillin and Clavulanic Acid Additional Instructions: *Monitor Temp, Over the counter Motrin or Tylenol as directed/as needed Tylenol every 4 hours and Motrin every 6 hours (as long as your family doctor has told you that you can take it) for fever or pain. and straight to ER if unable to lower temp less than 101.0 after medication given *Warm salt water gargles may help to soothe the throat *Throat Lozenges *Warm fluids like tea with honey may help to soothe the throat *Sleep elevated *Humidifier/Vaporizer *Flonase 2 sprays in each nostril daily but be aware that it may take 2-3 days before you notice improvement Take medication as prescribed As advised Solu Medrol may increase your blood sugar for a couple of days then return to normal Follow up IMMEDIATELY for new or worsening symptoms or no Noticeable improvement over the next 48-72 hours. 911 for difficulty breathing or swallowing Prescriptions: Amoxicillin/Potassium Clav [Augmentin 875-125 Tablet] 1 tab PO Q12H 10 Days #20 tab Transmission Status: Received by [facility] #[id number] Referrals: Kim Roth PA [Primary Care Provider] - As needed Time of Disposition: 15:53 Medical Decision Making - Enoch Inquiry Pt receiving controlled substance: No Enoch was queried for this patient: No Vital Signs: 08/20/20 15:26 Temperature 98.2 F Temperature Source Oral Pulse Rate [Right] 73 Respiratory Rate 14 Blood Pressure [Right Arm] 135/70 Blood Pressure Mean [Right Arm] 91 Blood Pressure Source [Right Arm] Automatic Cuff Blood Pressure Position [Right Arm] Sitting 02 Sat by Pulse Oximetry 96 Oxygen Delivery Method Room Air Orders (Tests/Meds): ED MEDICATIONS Discontinued Medications Generic Name Dose Route Start Last Admin Trade Name Freq PRN Reason Stop Dose Admin Ceftriaxone Sodium 1 gm 03/29/21 15:48 08/20/20 16:07 Ceftriaxone 1gm Vial IM 08/20/20 15:49 1 gm ONCE ONE Administration Protocol Lidocaine HCl 0 ml 08/20/20 15:48 08/20/20 16:07 Lidocaine 1% 5ml Pf Vial IM 08/20/20 15:49 2 ml ONCE ONE Administration Methylprednisolone Sodium Succinate 125 mg 08/20/20 15:48 08/20/20 16:07 Methylprednisolone Sod Succ 125mg Vial IM 08/20/20 15:49 125 mg ONCE ONE Administration [facility] [place] - General Stated complaint: ears and lost of voice Time Seen by Provider: 08/20/20 15:39 Mode of Arrival: Ambulatory Source of Information: Patient Limitations: No Limitations Description of Symptoms (Recalled from Triage Doc. by RN): pt has lost her voice, she is having bilateral ear pain and a HENRIQUEZ. HEENT Symptoms (Recalled from RN notes): Yes (bilateral ear pain and HENRIQUEZ) Resp Symptoms (Recalled from RN notes): No Skin Symptoms (Recalled from RN notes): No MS Symptoms (Recalled from RN notes): No Functional Status (Recalled from RN notes): na - History of Present Illness Provider Complaint: Patient state that she is having bilateral ear pain headache and has lost her voice State that today her ears are hurting worse so she come in to have them checked States that she has had pain and pressure in her sinuses for over week State that her whole face hurts State that she has recurring ear infections and sinus infections and has to come in and get shots and oral medications to help clear them up - Related Data Previous Rx's Medication Instructions Recorded metformin 500 mg tablet 500 mg PO BID #180 tab 03/30/18 ce
[2020-08-20 16:13] VITALS: BP 129/79; PULSE 70; RESP 14; TEMP 36.6
== END 2020-08-20 16:13 | disposition home or self-care (01) ==
PROVIDERS: Emergency Provider Nurse Practitioner; PCP Physician Assistant
DX: J32.9 Chronic sinusitis, unspecified (principal); H66.93 Otitis media, unspecified, bilateral; E11.9 Type 2 diabetes mellitus without complications; I10 Essential (primary) hypertension; M79.7 Fibromyalgia; Z79.899 Other long term (current) drug therapy
CPT/HCPCS: 96372; 99202; G0463

== ENCOUNTER 2020-12-26 09:02 | Emergency (ER) | payer SELFPAY ==
[2020-12-26 09:02] VITALS: BP 108/69; PULSE 71; RESP 18; TEMP 36.7; O2SAT 99; BMI 36.5
--- NOTE | 2020-12-26 09:41 | HMH.EDUTC ---
[facility] Disposition Clinical Impression: Bronchitis Sinusitis Qualifiers: Sinusitis location: unspecified location Chronicity: acute Recurrence: non-recurrent Qualified Code(s): J01.90 - Acute sinusitis, unspecified Disposition: Home, Self-Care Condition on Discharge: Good Instructions: DI for Sinusitis, DI for Acute Bronchitis Additional Instructions: Drink plenty of fluids. Take tylenol or ibuprofen for pain or fever. Take the medications as directed. Follow up with your regular doctor. GO TO THE ER FOR ANY WORSENING SYMPTOMS The cough medication (promethazine dm) will make you drowsy, so don't drive or operate heavy machinery after taking it. Prescriptions: Promethazine/Dextromethorphan [Promethazine-Dm Syrup] 5 ml PO Q6HP PRN #240 syrup PRN Reason: Cough Transmission Status: Received by [facility] #[id number] Amoxicillin [Amoxicillin 500mg Tab] 500 mg PO TID 10 Days #30 tab Transmission Status: Received by [facility] #[id number] guaiFENesin [Mucinex 600mg tablet] 1 - 2 tab PO BIDP PRN #30 tab.er.12h PRN Reason: Congestion Transmission Status: Received by [facility] #[id number] Referrals: Kim Roth PA [Primary Care Provider] - Forms: Work/School Release Time of Disposition: 10:15 Medical Decision Making - Medical Records Medical records reviewed: No: I reviewed the patient's medical records. - Enoch Inquiry Pt receiving controlled substance: No Vital Signs: 12/26/20 09:02 12/26/20 10:24 Temperature 98.0 F 98.0 F Temperature Source Oral Pulse Rate 71 Pulse Rate [Left Radial] 71 Respiratory Rate 18 18 Blood Pressure 108/69 L Blood Pressure [Right Arm] 108/69 L Blood Pressure Mean [Right Arm] 82 Blood Pressure Source Automatic Cuff Blood Pressure Source [Right Arm] Automatic Cuff Blood Pressure Position Sitting Blood Pressure Position [Right Arm] Sitting 02 Sat by Pulse Oximetry 99 Oxygen Delivery Method Room Air Orders (Tests/Meds): ED MEDICATIONS Discontinued Medications Generic Name Dose Route Start Last Admin Trade Name Freq PRN Reason Stop Dose Admin Ceftriaxone Sodium 1 gm 12/26/20 09:44 12/26/20 09:59 Ceftriaxone 1gm Vial IM 12/26/20 09:45 1 gm ONCE ONE Administration Protocol Lidocaine HCl 0 ml 12/26/20 09:44 12/26/20 09:59 Lidocaine 1% 5ml Pf Vial IM 12/26/20 09:45 2.1 ml ONCE ONE Administration Methylprednisolone Sodium Succinate 125 mg 12/26/20 09:44 12/26/20 09:59 Methylprednisolone Sod Succ 125mg Vial IM 12/26/20 09:45 125 mg ONCE ONE Administration [facility] HPI - General Stated complaint: hoarse, ear pain Time Seen by Provider: 12/26/20 09:30 Mode of Arrival: Ambulatory Source of Information: Patient Limitations: No Limitations Description of Symptoms (Recalled from Triage Doc. by RN): c/o ear pain, lost voice and sinus pain for 2 days. HEENT Symptoms (Recalled from RN notes): Yes Resp Symptoms (Recalled from RN notes): No Skin Symptoms (Recalled from RN notes): No MS Symptoms (Recalled from RN notes): No Functional Status (Recalled from RN notes): wnl - History of Present Illness Provider Complaint: She reports that for the past 3 days she has had worsening sinus congestion, cough, sore throat and she has been feeling bad. She denies any known covid exposure and she refuses a covid test today. - Related Data Previous Rx's Medication Instructions Recorded metformin 500 mg tablet 500 mg PO BID #180 tab 03/30/18 estradiol 0.1 mg/24 hr semiweekly 1 patch TRANSDERMA WEEKLY #1 each 06/01/20 transdermal patch lidocaine 5 % topical patch 1 patch TOPICAL DAILY #15 each 09/26/20 tizanidine 4 mg tablet 4 mg PO TID PRN #30 tab 09/26/20 lisinopril 20 See Rx Instructions .ROUTE 10/18/20 mg-hydrochlorothiazide 12.5 mg .COMPLEX #90 tab tablet Amoxicillin [Amoxicillin 500mg Tab] 500 mg PO TID 10 Days #30 tab 12/26/20 Promethazine/Dextromethorphan 5 ml PO Q6HP PRN
[2020-12-26 10:24] VITALS: BP 108/69; PULSE 71; RESP 18; TEMP 36.7; O2SAT 99
== END 2020-12-26 10:25 | disposition home or self-care (01) ==
PROVIDERS: Emergency Provider Nurse Practitioner Family; PCP Physician Assistant
DX: J01.90 Acute sinusitis, unspecified (principal); E11.9 Type 2 diabetes mellitus without complications; I10 Essential (primary) hypertension; Z79.899 Other long term (current) drug therapy
CPT/HCPCS: 96372; 99202; G0463

== ENCOUNTER → 2022-12-19 12:55 | Outpatient (CLI) | payer OTHER, SELFPAY ==
--- NOTE | 2022-12-19 13:36 | MR_ITS ---
FINAL REPORT TECHNIQUE: Multiplanar MR without contrast CLINICAL HISTORY: PAIN IN THORACIC SPINE right sided back pain since april feet tingling, burning and numbness FINDINGS: The vertebral heights are normal. Marrow signal pattern is unremarkable. Alignment is normal. Thoracic spinal cord shows a normal MR appearance. T1/2-T5-6: Unremarkable. T6-7: Moderate left paracentral disc protrusion resulting in left canal stenosis. T7-8: Small left lateral canal disc protrusion. T8-9: Moderate left lateral canal disc retrusion with mild left lateral recess stenosis. T9-10: Minimal annular disc bulge. T10-11: Minimal annular disc bulge. T11-12: Moderate left paracentral disc extrusion compressing the left spinal cord. T12-L1: Moderate annular disc bulge with small central disc protrusion and mild canal stenosis. 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 Reviewed, Interpreted and Dictated by Jacey Ruano MD Transcribed by Nicole Cartagena Authenticated and . [facility]
== END ==
PROVIDERS: PCP Nurse Practitioner Family; Visit Provider Physician Assistant
DX: M54.6 Pain in thoracic spine (principal)
CPT/HCPCS: 72146

== ENCOUNTER 2023-07-31 18:50 | Outpatient (CLI) | payer OTHER, SELFPAY | END 2023-07-31 23:59 | LOC: LAB.DROPOF 18:51 | PROVIDERS: PCP Family Medicine; Visit Provider Family Medicine | DX: R30.0 Dysuria (principal); B95.2 Enterococcus as the cause of diseases classified elsewhere | CPT/HCPCS: 87086 ==

== ENCOUNTER 2023-08-26 17:49 | Emergency (ER) | payer OTHER, SELFPAY ==
[2023-08-26 18:05] VITALS: BP 138/90; PULSE 84; RESP 18; TEMP 37.1; O2SAT 98; BMI 43.8
--- NOTE | 2023-08-26 18:08 | ED_ITS ---
Discharge Plan Disposition Patient Disposition: Home, Self-Care Condition: Good Prescriptions Prescriptions: New amoxicillin-pot clavulanate 875-125 mg Tablet 1 tab PO Q12H Qty: 20 0RF fluticasone propionate [Flonase Allergy Relief] 50 mcg/actuation spray ,suspension 2 spray intranasal DAILY Qty: 16 0RF Rx Instructions: administer into each nostril daily meclizine 25 mg tablet 25 mg PO TID PRN (Reason: dizziness) Qty: 12 0RF prednisone 20 mg tablet 20 mg PO BID 5 Days Qty: 10 0RF No Action torsemide 20 mg tablet 20 mg PO DAILY Patient Comments: TAKE 1 TABLET BY MOUTH DAILY. hydrochlorothiazide 25 mg tablet 25 mg PO DAILY Qty: 30 2RF estradiol 0.1 mg/24 hr patch semiweekly 1 patch TRANSDERMA WEEKLY Qty: 1 0RF Referrals Follow up/Referrals: Provider,Referral, MD [Primary Care Provider] - See instructions Activity Restrictions/Add. Instructions Additional Instructions/Restrictions: Start oral steriods and antibiotics tomorrow you was given injections in the [facility] today Take Meclizine as prescribed as needed Follow up with your Family Doctor if no improvement or any worsening of symptoms Follow up with ENT if symptoms persist and do not improve Over the counter Motrin and/or Tylenol for pain and/or Fever Do not drive if you are feeling dizzy Clinical Impressions Clinical Impression: Otitis media Qualifiers: Otitis media type: unspecified Laterality: bilateral Qualified Code(s): H66.93 - Otitis media, unspecified, bilateral Stand Alone Forms Stand Alone Forms: Work/School Release Instructions Patient Instructions: Middle Ear Infection, DI for Vertigo Discharge ED Provider: Yue Pascual [facility] [place] H[place] General Stated complaint: ear pain, pressure in face Time Seen by Provider: 08/26/23 18:08 History of Present Illness Provider Complaint: Patient states that she has been having pain and pressure in both ears and it makes her have vertigo States that she is also having some pain and pressure in her sinuses but that is common when her ears flare up and tonight her pain was worse and still having vertigo so she came in to get checked and get something for it Related Data Home Medications Medication Instructions Recorded Confirmed torsemide 20 mg tablet 20 mg PO DAILY 07/31/23 08/26/23 Previous Rx's Medication Instructions Recorded estradiol 0.1 mg/24 hr semiweekly 1 patch transdermal WEEKLY #1 ea 06/05/21 transdermal patch hydrochlorothiazide 25 mg tablet 25 mg PO DAILY #30 tabs 07/31/23 amoxicillin 875 mg-potassium 1 tab PO Q12H #20 tabs 08/26/23 clavulanate 125 mg tablet fluticasone propionate 50 2 spray intranasal DAILY #16 grams 08/26/23 mcg/actuation nasal spray,suspension (Flonase Allergy Relief) meclizine 25 mg tablet 25 mg PO TID PRN dizziness #12 tabs 08/26/23 prednisone 20 mg tablet 20 mg PO BID 5 days #10 tabs 08/26/23 Allergies Allergy/AdvReac Type Severity Reaction Status Date / Time erythromycin base Allergy Intermediate I-HIVES Verified 07/31/23 12:57 ibuprofen Allergy Intermediate SWELLING Verified 07/31/23 12:57 levofloxacin [From LEVAQUIN] Allergy Unknown S-DIFF. Verified 07/31/23 12:57 BREATHING PFSH PFS Disclaimer: The information contained in this section may have been updated after the patient was seen, as this information can be updated by other users. 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 Pap smear of vagina Skin tag of vulva Vasomotor symptoms due to menopause Sinusitis Otitis media Benign paroxysmal positional vertigo Asthma exacerbation Laryngitis Lumbar arthropathy Abdominal pain Low back pain Colon cancer Surgical History History of colonoscopy History of cholecystectomy History of hysterectomy Family History Grandmother Cancer Father Coronary artery disease Diabetes Hypertension Heart attack Mother Stroke Hypertension Social History Smoking Status: Never smoker alcohol intake: never substance use type: denies use current occupational status: employed Travel in the last 8 weeks: None household members: significant other and other housing: house 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 [employer] ROS Obtained: Yes All systems reviewed & no additional complaints except as documented and Yes Systems reviewed as appropriate & no additional complaints except as documented Constitutional Constitutional: Reports system reviewed and no additional complaints, except as documented, Reports as per HPI and Reports headache(s) ENT Ears, Nose, Mouth, and Throat: Reports system reviewed and no additional complaints, except as documented, Reports as per HPI, Reports dizziness, Reports otalgia, Reports headache(s), Reports sinus pain, Reports sinus pressure and Reports vertigo (feel like the room is spinning around her) Cardiovascular Cardiovascular: Reports system reviewed and no additional complaints, except as documented and Reports as per HPI Respiratory Respiratory: Reports system reviewed and no additional complaints, except as documented and Reports as per HPI Gastrointestinal Gastrointestingal: Reports system reviewed and no additional complaints, except as documented and as per HPI Musculoskeletal Musculoskeletal: Reports system reviewed and no additional complaints, except as documented and Reports as per HPI Neurologic Neurologic: Reports system reviewed and no additional complaints, except as documented, Reports as per HPI, Reports dizziness, Reports headache(s) and Reports vertigo (feel like the room is spinning around her) Physical Exam General General appearance: alert and in no apparent distress Eye Eye exam: Present normal appearance, PERRL and EOMI ENT ENT exam: Present mucous membranes moist Expanded ENT Exam TM/Canal exam: Bilateral TM: erythema and bulging Nose exam: Present sinus tenderness Respiratory Respiratory exam: Present normal lung sounds bilaterally; Absent respiratory distress or wheezes Cardiovascular Cardiovascular exam: Present regular rate, normal rhythm and normal heart sounds Neurological Exam Neurological exam: Present alert, oriented X3 and normal gait Medical Decision Making Enoch Inquiry Pt receiving controlled substance: No Enoch was queried for this patient: No Medical Decision Narrative: Patient states that she has take Meclizine and Prednisone in the past without complications or reactions Medication discussed with pharmacy
[2023-08-26 18:21] VITALS: BP 138/90; PULSE 84; RESP 18; TEMP 37.1; O2SAT 98
[2023-08-26] MEDS: cefTRIAXone 1GM VIAL 1 GM IM (18:39)
[2023-08-26] MEDS: MECLIZINE 25MG TABLET 25 MG PO (18:39)
[2023-08-26] MEDS: LIDOCAINE 1% 5ML PF VIAL IM (18:39)
[2023-08-26] MEDS: METHYLPREDNISOLONE SOD SUCC 125MG VIAL 125 MG IM (18:39)
== END 2023-08-26 18:50 | disposition home or self-care (01) ==
PROVIDERS: Emergency Provider Nurse Practitioner
DX: H66.93 Otitis media, unspecified, bilateral (principal); R42 Dizziness and giddiness; R09.81 Nasal congestion
CPT/HCPCS: 96372; 99212; 99214; G0463; J0696

== ENCOUNTER 2023-09-23 18:00 | Outpatient (CLI) | payer OTHER, SELFPAY ==
[2023-09-23 16:41] LABS: Basophils # 0.1 K/mm3 (0-0.2); Basophils % 0.8 % (0.1-2.0); Eosinophils # 0.3 K/mm3 (0.0-0.4); Eosinophils % 3.5 % (0.1-12.0); Hemoglobin 13.1 g/dL (12.2-16.2); Lymphocytes % 25.5 % (10-50); Mean Corpuscular HGB Conc 32.8 g/dL (31.8-35.4); Mean Corpuscular Hemoglobin 29.5 pg (27.0-31.2); Mean Platelet Volume 9.2 fl (7.4-10.4); Monocytes # 0.4 K/mm3 (0.1-1.0); Monocytes % 5.1 % (1.7-9.3); Neutrophils % 65.1 % (37.0-80.0); Platelet Count 211 K/mm3 (142-424); Red Blood Count 4.45 M/mm3 (4.20-5.40); Red Cell Distribution Width 14.8 % (11.5-17.5); White Blood Count 7.7 K/mm3 (4.8-10.8)
[2023-09-23 16:48] LABS: Alanine Aminotransferase 101 U/L (12-78); Albumin Level 4.2 g/dl (3.5-5.0); Albumin/Globulin Ratio 1.6 (1.1-1.8); Alkaline Phosphatase 71 U/L (38-126); Aspartate Amino Transferase 112 U/L (14-36); Bilirubin,Total 0.5 mg/dl (0.2-1.3); Blood Urea Nitrogen 10 mg/dl (7-17); Calcium 9.6 mg/dl (8.4-10.2); Carbon Dioxide 25 mmol/L (22.0-30.0); Chloride 98 mmol/L (98-107); Estimated Glomerular Filt Rate 129 ml/min (>60); GFR (African American) 156 ML/MIN (>60); Globulin 2.6 g/dL (1.3-3.2); Glucose 258 mg/dl (74-100); Magnesium 1.7 mg/dl (1.6-2.3); Sodium 136 mmol/L (136-145); Total Protein,Serum 6.8 g/dl (6.3-8.2)
[2023-09-23 17:04] LABS: T4 (Thyroxine) 8.8 ug/dl (5.53-11.0); Triiodothryronine (T3) Uptake 27 % (23.5-40.5)
[2023-09-23 17:06] LABS: Free T4 (Free Thyroxine) 0.92 ng/dl (0.78-2.19)
[2023-09-23 17:08] LABS: 25-OH Vitamin D, Total 22.5 ng/mL (30-100)
[2023-09-23 17:15] LABS: Anion Gap 16.1 mEq/L (5-15); Potassium 3.1 mmoL/L (3.5-5.1)
[2023-09-23 17:18] LABS: Thyroid Stimulating Hormone 0.97 uIU/mL (0.465-4.68)
[2023-09-23 17:37] LABS: Vitamin B12 771 pg/mL (239-931)
[2023-09-23 19:09] LABS: Iron 63 ug/dL (37-170)
[2023-09-23 19:18] LABS: Total Iron Binding Capacity 252 ug/dL (265-497)
[2023-09-23 20:26] LABS: Hemoglobin A1C 7.1 % (4.0-6.0)
== END 2023-09-23 23:59 | disposition home or self-care (01) ==
LOC: LAB.DROPOF 09-24 07:47
PROVIDERS: PCP Nurse Practitioner Family; Visit Provider Nurse Practitioner Family
DX: R53.83 Other fatigue (principal); R06.09 Other forms of dyspnea; R06.02 Shortness of breath; R73.9 Hyperglycemia, unspecified; R74.01 Elevation of levels of liver transaminase levels; E55.9 Vitamin D deficiency, unspecified; Z79.899 Other long term (current) drug therapy; E87.6 Hypokalemia
CPT/HCPCS: 80053; 82306; 82607; 83036; 83540; 83550; 83735; 84436; 84439; 84443; 84479; 85025

== ENCOUNTER 2023-11-17 18:00 | Outpatient (CLI) | payer OTHER, SELFPAY | END 2023-11-17 23:59 | disposition home or self-care (01) | LOC: LAB.DROPOF 11-18 08:03 | PROVIDERS: PCP Family Medicine; Visit Provider Family Medicine | DX: R10.9 Unspecified abdominal pain (principal) | CPT/HCPCS: 87086 ==

== ENCOUNTER 2023-12-24 10:17 | Outpatient (CLI) | payer OTHER, SELFPAY ==
[2023-12-24 21:59] LABS: Hemoglobin A1C 5.3 % (4.0-6.0)
== END 2023-12-24 23:59 | disposition home or self-care (01) ==
LOC: LAB.DROPOF 12-25 08:09
PROVIDERS: PCP Nurse Practitioner Family; Visit Provider Nurse Practitioner Family
DX: E11.9 Type 2 diabetes mellitus without complications (principal); Z79.84 Long term (current) use of oral hypoglycemic drugs; Z79.85 Long-term (current) use of injectable non-insulin antidiabetic drugs
CPT/HCPCS: 83036

== ENCOUNTER 2024-02-08 17:27 | Emergency (ER) | payer OTHER, SELFPAY ==
[2024-02-08 17:50] VITALS: BP 148/78; PULSE 70; RESP 18; TEMP 36.8; O2SAT 98; BMI 41.8
--- NOTE | 2024-02-08 18:18 | ED_ITS ---
Discharge Plan Disposition Patient Disposition: Home, Self-Care Condition: Good Prescriptions Prescriptions: No Action (DME) blood sugar diagnostic Strip See Rx Instructions .Route Qty: 100 2RF Rx Instructions: Pt is to test BID prn (DME) blood-glucose meter Kit See Rx Instructions .Route Qty: 1 0RF Rx Instructions: As directed (DME) lancets Misc See Rx Instructions .Route Qty: 100 0RF Rx Instructions: As directed doxycycline hyclate 100 mg capsule 100 mg PO DAILY Patient Comments: TAKE 1 CAPSULE BY MOUTH TWICE DAILY FOR 10 DAYS. estradiol 0.1 mg/24 hr patch semiweekly 1 patch topical WEEKLY Patient Comments: APPLY 1 PATCH TO SKIN TWICE WEEKLY lisinopril-hydrochlorothiazide 20-25 mg tablet 1 tab PO DAILY Patient Comments: TAKE 1 TABLET BY MOUTH DAILY. metformin 500 mg tablet extended release 24 hr 500 mg PO DAILY Patient Comments: TAKE 1 TABLET BY MOUTH DAILY. Ozempic 0.25 mg or 0.5 mg (2 mg/3 mL) pen injector 0.25 mg SQ WEEKLY Patient Comments: INJECT 0.5 MG SUBCUTANEOUSLY ONCE WEEKLY Referrals Follow up/Referrals: Tad Hernadez MD [Primary Care Provider] - See instructions Activity Restrictions/Add. Instructions Additional Instructions/Restrictions: Rest the extremity, Elevate the extremity as tolerated while you are resting. Return in the morning for the venous doppler. Follow up with your regular doctor. GO TO THE ER FOR ANY WORSENING SYMPTOMS Clinical Impressions Clinical Impression: Left leg pain, Swelling of left lower extremity, History of deep vein thrombosis Instructions Patient Instructions: DI for Deep Vein Thrombosis Print Language Print Language: Macedonian Discharge ED Provider: Bacilio Tristan [facility] General Stated complaint: Bruise on left calf sore to touch Mode of Arrival: Ambulatory Source of Information: Patient Limitations: No Limitations Time Seen by Provider: 02/08/24 18:18 Description of Symptoms (Recalled from Triage Doc. by RN): PATIENT C/O PAIN TO LEFT CALF X 3 DAYS. 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 She denies any chest pain, cough, or shortness of breath. She did have a dvt in this leg in the distant past after an orthopedic injury. She states that she has had to go on several very long car trips recently. She is not on any blood thinners. Related Data Home Medications ?Medication ?Instructions ?Recorded ?Confirmed doxycycline hyclate 100 mg capsule 100 mg PO DAILY 02/08/24 02/08/24 estradiol 0.1 mg/24 hr semiweekly 1 patch topical WEEKLY 02/08/24 02/08/24 transdermal patch lisinopril 20 1 tab PO DAILY 02/08/24 02/08/24 mg-hydrochlorothiazide 25 mg tablet metformin 500 mg tablet,extended 500 mg PO DAILY 02/08/24 02/08/24 release 24 hr semaglutide 0.25 mg or 0.5 mg (2 0.25 mg SQ WEEKLY 02/08/24 02/08/24 mg/3 mL) subcutaneous pen injector ([employer]) Previous Rx's ?Medication ?Instructions ?Recorded blood sugar diagnostic #100 ea 10/08/23 blood-glucose meter #1 ea 10/08/23 lancets #100 ea 10/08/23 Allergies Allergy/AdvReac Type Severity Reaction Status Date / Time erythromycin base Allergy Intermediate I-HIVES Verified 02/02/24 10:06 ibuprofen Allergy Intermediate SWELLING Verified 02/02/24 10:06 levofloxacin [From LEVAQUIN] Allergy Unknown S-DIFF. Verified 02/02/24 10:06 BREATHING Worker's Comp Is this a Worker's Comp case?: No [facility] Disclaimer: The information contained in this section may have been updated after the patient was seen, as this information can be updated by other users. 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 Pap smear of vagina Skin tag of vulva Vasomotor symptoms due to menopause Sinusitis Otitis media Benign paroxysmal positional vertigo Asthma exacerbation Laryngitis Lumbar arthropathy Abdominal pain Low back pain Colon cancer Surgical History History of colonoscopy History of cholecystectomy History of hysterectomy Family History Grandmother Cancer Father Coronary artery disease Diabetes Hypertension Heart attack Mother Stroke Hypertension Social History Smoking Status: Never smoker alcohol intake: never substance use type: denies use current occupational status: employed Travel in the last 8 weeks: None household members: significant other and other housing: house 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 [employer] ROS Obtained: Yes All systems reviewed & no additional complaints except as documented Constitutional Constitutional: Denies chills and Denies fever(s) Eyes Eyes: Denies eye discharge ENT Ears, Nose, Mouth, and Throat: Denies dizziness, Denies otalgia and Denies sore throat Cardiovascular Cardiovascular: Denies chest pain Respiratory Respiratory: Denies shortness of breath, Denies chest congestion, Denies cough, Denies stridor and Denies wheezing Gastrointestinal Gastrointestingal: Denies nausea or vomiting Musculoskeletal Musculoskeletal: Reports as per HPI Integumentary/Breasts Skin/Breast: Denies redness, Denies rash and Denies wounds Neurologic Neurologic: Denies dizziness and Denies paresthesias Allergic/Immunologic Allergic/Immunologic: Denies wheezing Physical Exam General General appearance: alert and in no apparent distress Head Head exam: atraumatic, normocephalic and normal inspection Eye Eye exam: Present normal appearance, PERRL and EOMI ENT ENT exam: Present normal exam, normal oropharynx, mucous membranes moist, TM's normal bilaterally and normal external ear exam Neck Neck exam: Present normal inspection, full ROM and trachea midline; Absent meningismus or lymphadenopathy Chest Chest inspection: Present normal inspection and symmetric chest wall rise; Absent tenderness Respiratory Respiratory exam: Present normal lung sounds bilaterally; Absent respiratory distress Cardiovascular Cardiovascular exam: Present regular rate and normal rhythm; Absent JVD Abdominal Exam Abdominal exam: Present soft and normal bowel sounds; Absent distention, tenderness or guarding Extremities Exam Extremities exam: Present normal capillary refill; Absent calf tenderness Expanded Lower Extremity Exam Left: Hip/Pelvis exam: Present normal inspection, full ROM and pelvis stable; Absent tenderness Upper leg exam: Present normal inspection and full ROM; Absent tenderness or swelling Knee exam: Present normal inspection and full ROM; Absent tenderness Lower leg exam: Present full ROM, tenderness, swelling, Homans' sign and Achilles tendon intact; Absent abrasion, laceration, ecchymosis, deformity, crepitus, dislocation, erythema or palpable cord Ankle exam: Present normal inspection and full ROM; Absent tenderness, tenderness over talofibular lig or anterior draw sign Foot/toe exam: Present normal inspection and full ROM; Absent tenderness Neurovascular/Tendon exam: Present normal capillary refill, normal 2-point discrimination and normal fine/light touch; Absent pulse deficit, motor deficit, sensory deficit, tendon deficit, extremity cold to touch or pallor Gait: observed and normal Back Exam Back exam: Present normal inspection; Absent tenderness Neurological Exam Neurological exam: Present alert and oriented X3 Psychiatric Psychiatric exam: Present normal affect and normal mood Skin Skin exam: Present warm, dry, intact and normal color Lymphatic Lymphatic Findings: no adenopathy Medical Decision Making Medical Records Medical records reviewed: No I reviewed the patient's medical records. Enoch Inquiry Pt receiving controlled substance: No Vital Signs: 02/08/24 17:50 Temperature 98.2 F Temperature Source Oral Pulse Rate [Left Brachial] 70 Respiratory Rate 18 Blood Pressure [Left Arm] 148/78 H Blood Pressure Mean [Left Arm] 101 Blood Pressure Source [Left Arm] Automatic Cuff Blood Pressure Position [Left Arm] Sitting 02 Sat by Pulse Oximetry 98 Oxygen Delivery Method Room Air Medical Decision Narrative: Venous doppler is unavailable this evening. With her symptoms and h/o dvt, it was elected to give her lovenox and have the venous doppler set up for first thing in the morning.
[2024-02-08] MEDS: ENOXAPARIN 120MG/0.8ML SYRINGE 120 MG SQ (18:39)
[2024-02-08 18:41] VITALS: BP 148/78; PULSE 70; RESP 18; TEMP 36.8; O2SAT 98
== END 2024-02-08 18:44 | disposition home or self-care (01) ==
PROVIDERS: Emergency Provider Nurse Practitioner Family; PCP Family Medicine
DX: M79.605 Pain in left leg (principal); R22.42 Localized swelling, mass and lump, left lower limb; Z86.718 Personal history of other venous thrombosis and embolism
CPT/HCPCS: 96372; 99212; 99214; G0463; J1650

== ENCOUNTER 2024-02-09 13:12 | Outpatient (CLI) | payer OTHER, SELFPAY ==
--- NOTE | 2024-02-09 | CA_ITS ---
FINAL REPORT TECHNIQUE: Ultrasound images of the deep venous system were obtained from the left groin to the calf veins. CLINICAL HISTORY: Patient states she sits and drives for long periods of time. She had a DVT in left leg 20-25 years ago. Not currently on any blood thinners. She received a Lovenox injection in the ER last evening. HTN, DM II, HRT patch x 10 years. Pain is in the posterior aspect of calf of LLE. COMPARISON: None FINDINGS: The deep venous system is normally compressible. Normal flow is identified in the left lower extremity.` IMPRESSION: No evidence of left lower extremity DVT. Reviewed, Interpreted and Dictated by Earnest Dennis MD Transcribed by Darlene Valle Authenticated and [facility]
== END 2024-02-09 23:59 | disposition home or self-care (01) ==
LOC: RT 13:12
PROVIDERS: PCP Family Medicine; Visit Provider Nurse Practitioner Family
DX: M79.662 Pain in left lower leg (principal); Z86.718 Personal history of other venous thrombosis and embolism
CPT/HCPCS: 93971

== ENCOUNTER 2024-03-04 09:48 | Emergency (ER) | payer OTHER, SELFPAY ==
[2024-03-04 10:10] VITALS: BP 130/75; PULSE 66; RESP 19; TEMP 36.7; O2SAT 97; BMI 42.0
--- NOTE | 2024-03-04 10:23 | ED_ITS ---
Discharge Plan Disposition Patient Disposition: Home, Self-Care Condition: Good Prescriptions Prescriptions: New amoxicillin 875 mg tablet 875 mg PO Q12H Qty: 20 0RF fluticasone propionate [Flonase Allergy Relief] 50 mcg/actuation spray,suspension 1 - 2 spray intranasal DAILY Qty: 16 0RF Rx Instructions: administer into each nostril daily No Action (DME) blood sugar diagnostic Strip See Rx Instructions .Route Qty: 100 2RF Rx Instructions: Pt is to test BID prn (DME) blood-glucose meter Kit See Rx Instructions .Route Qty: 1 0RF Rx Instructions: As directed (DME) lancets Misc See Rx Instructions .Route Qty: 100 0RF Rx Instructions: As directed estradiol 0.1 mg/24 hr patch semiweekly 1 patch topical WEEKLY Patient Comments: APPLY 1 PATCH TO SKIN TWICE WEEKLY lisinopril-hydrochlorothiazide 20-25 mg tablet 1 tab PO DAILY Patient Comments: TAKE 1 TABLET BY MOUTH DAILY. Ozempic 0.25 mg or 0.5 mg (2 mg/3 mL) pen injector 0.5 mg SQ DAILY Patient Comments: INJECT 0.5 MG SUBCUTANEOUSLY ONCE WEEKLY Referrals Follow up/Referrals: Tad Hernadez MD [Primary Care Provider] - See instructions Activity Restrictions/Add. Instructions Additional Instructions/Restrictions: *Monitor Temp, Over the counter Motrin or Tylenol as directed/as needed Tylenol every 4 hours and Motrin every 6 hours (as long as your family doctor has told you that you can take it) for fever or pain. and straight to ER if unable to lower temp less than 101.0 after medication given *Warm salt water gargles may help to soothe the throat *Throat Lozenges? *Warm fluids like tea with honey may help to soothe the throat? *Sleep elevated *Humidifier/Vaporizer *Flonase 2 sprays in each nostril daily but be aware that it may take 2-3 days before you notice improvement Take medication as prescribed Your throat swab was sent for culture. Those results are typically sent to your primary care. Be sure to follow up in 2-3 days with your family doctor/primary care physician if no improvement so they can review those result and treat if necessary. If you don?t have a primary care doctor, I recommend you get one but in the mean time, you will have to return to a walk in clinic Follow up IMMEDIATELY for new or worsening symptoms or no Noticeable im provement over the next 48-72 hours. 911 for difficulty breathing or swallowing Clinical Impressions Clinical Impression: Otitis media Instructions Patient Instructions: Middle Ear Infection, Amoxicillin Print Language Print Language: Sinhala Discharge ED Provider: Yue Pascual [facility] [place] General Stated complaint: sore throat, Pain in R ear Time Seen by Provider: 03/04/24 10:23 History of Present Illness Provider Complaint: Patient states that she has been having bilateral ear pain and pressure, sore throat and nasal congestion for several days States today she was feeling worse so she came in to get checked Related Data Home Medications ?Medication ?Instructions ?Recorded ?Confirmed estradiol 0.1 mg/24 hr semiweekly 1 patch topical WEEKLY 03/04/24 03/04/24 transdermal patch lisinopril 20 1 tab PO DAILY 03/04/24 03/04/24 mg-hydrochlorothiazide 25 mg tablet semaglutide 0.25 mg or 0.5 mg (2 0.5 mg SQ DAILY 03/04/24 03/04/24 mg/3 mL) subcutaneous pen injector (Ozempic) Previous Rx's ?Medication ?Instructions ?Recorded blood sugar diagnostic #100 ea 10/08/23 blood-glucose meter #1 ea 10/08/23 lancets #100 ea 10/08/23 amoxicillin 875 mg tablet 875 mg PO Q12H #20 tabs 03/04/24 fluticasone propionate 50 1 - 2 spray intranasal DAILY #16 03/04/24 mcg/actuation nasal grams spray,suspension (Flonase Allergy Relief) Allergies Allergy/AdvReac Type Severity Reaction Status Date / Time erythromycin base Allergy Intermediate I-HIVES Verified 02/02/24 10:06 ibuprofen Allergy Intermediate SWELLING Verified 02/02/24 10:06 levofloxacin [From LEVAQUIN] Allergy Unknown S-DIFF. Verified 02/02/24 10:06 BREATHING [facility] Disclaimer: The information contained in this section may have been updated after the patient was seen, as this information can be updated by other users. 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 Pap smear of vagina Skin tag of vulva Vasomotor symptoms due to menopause Sinusitis Otitis media Benign paroxysmal positional vertigo Asthma exacerbation Laryngitis Lumbar arthropathy Abdominal pain Low back pain Colon cancer Surgical History History of colonoscopy History of cholecystectomy History of hysterectomy Family History Grandmother Cancer Father Coronary artery disease Diabetes Hypertension Heart attack Mother Stroke Hypertension Social History Smoking Status: Never smoker alcohol intake: never substance use type: denies use current occupational status: employed Travel in the last 8 weeks: None household members: significant other and other housing: house 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 [employer] ROS Obtained: Yes All systems reviewed & no additional complaints except as documented and Yes Systems reviewed as appropriate & no additional complaints except as documented Constitutional Constitutional: Reports system reviewed and no additional complaints, except as documented and Reports as per HPI ENT Ears, Nose, Mouth, and Throat: Reports system reviewed and no additional complaints, except as documented, Reports as per HPI, Reports otalgia, Reports nasal congestion, Reports sinus pressure and Reports sore throat Cardiovascular Cardiovascular: Reports system reviewed and no additional complaints, except as documented and Reports as per HPI Respiratory Respiratory: Reports system reviewed and no additional complaints, except as documented and Reports as per HPI Gastrointestinal Gastrointestingal: Reports system reviewed and no additional complaints, except as documented and as per HPI Physical Exam General General appearance: alert and in no apparent distress ENT ENT exam: Present mucous membranes moist Expanded ENT Exam TM/Canal exam: Bilateral TM: erythema and bulging Nose exam: Present sinus tenderness Chest Chest inspection: Present normal inspection and symmetric chest wall rise Respiratory Respiratory exam: Present normal lung sounds bilaterally; Absent respiratory distress Cardiovascular Cardiovascular exam: Present regular rate, normal rhythm and normal heart sounds Neurological Exam Neurological exam: Present alert, oriented X3 and normal gait Medical Decision Making Medical Records Screening: Per USPSTF and CDC recommendations, given the prevalence of disease in our region, it is our hospital?s policy to screen for HIV and viral Hepatitis for all patients aged 18 and over and those with ongoing risk factors. Enoch Inquiry Pt receiving controlled substance: No Enoch was queried for this patient: No Lab Data Lab results reviewed: Yes I reviewed the patient's lab results.
[2024-03-04 10:31] LABS: UTC Strep Screen (Rapid) Negative (Negative)
[2024-03-04 10:36] VITALS: BP 130/75; PULSE 66; RESP 19; TEMP 36.7; O2SAT 97
== END 2024-03-04 10:38 | disposition home or self-care (01) ==
PROVIDERS: Emergency Provider Nurse Practitioner; PCP Family Medicine
DX: H66.93 Otitis media, unspecified, bilateral (principal)
CPT/HCPCS: 87880; 99213; G0381

== ENCOUNTER 2024-03-25 09:12 | Outpatient (CLI) | payer OTHER, SELFPAY ==
--- NOTE | 2024-03-25 09:14 | XR_ITS ---
PROCEDURE INFORMATION: Exam: XR Thoracic Spine Exam date and time: 03/25/2024 9:40 AM Age: 53 years old Clinical indication: Pain in thoracic spine; Additional info: Back pain TECHNIQUE: Imaging protocol: Radiologic exam of the thoracic spine. Views: 3 views. COMPARISON: MR THORACIC SPINE WO CON 12/19/2022 1:43 PM FINDINGS: Bones/joints: Mild thoracic dextroscoliosis and accentuation of the normal thoracic kyphosis which may be positional or secondary to muscle spasm. Alignment is otherwise preserved. No spondylolisthesis. No compression fractures. Multilevel degenerative disc disease/spondylosis which is most pronounced within the mid and lower thoracic spine and characterized by disc space narrowing, degenerative endplate changes and endplate osteophyte formation. Soft tissues: Unremarkable. IMPRESSION: 1. Mild thoracic dextroscoliosis and accentuated kyphosis which may be positional or secondary to muscle spasm. 2. Multilevel degenerative disc disease/spondylosis.
--- NOTE | 2024-03-25 09:14 | XR_ITS ---
PROCEDURE INFORMATION: Exam: XR Lumbosacral Spine Exam date and time: 03/25/2024 9:40 AM Age: 53 years old Clinical indication: Low back pain TECHNIQUE: Imaging protocol: Radiologic exam of the lumbosacral spine. Views: 2 or 3 views. COMPARISON: 1. ABDPELWO CT abdomen pelvis wo con 08/18/2018 10:58 PM 2. CR [id number] XR lumbar spine min 4V 12/09/2017 11:26 AM FINDINGS: Bones/joints: Straightening of the normal lumbar lordosis which may be positional or secondary to muscle spasm. Minimal retrolisthesis L2-L3 and L3-L4 appears unchanged. No compression fractures. Multilevel degenerative disc disease/spondylosis throughout the lower thoracic and lumbar spine with disc space narrowing, degenerative endplate changes and endplate osteophyte formation. Multilevel facet arthrosis. Mild degenerative change of the SI joints. Soft tissues: Unremarkable. Intraperitoneal space: Cholecystectomy clips right upper quadrant. IMPRESSION: 1. Positional changes versus muscle spasm. 2. Multilevel degenerative change with degenerative disc disease/spondylosis and facet arthrosis having progressed since the examinations.
== END 2024-03-25 23:59 | disposition home or self-care (01) ==
LOC: RAD 09:13
PROVIDERS: PCP Family Medicine; Visit Provider Family Medicine
DX: M47.816 Spondylosis without myelopathy or radiculopathy, lumbar region (principal); M54.50 Low back pain, unspecified
CPT/HCPCS: 72072; 72100

== ENCOUNTER 2024-04-15 10:36 | Emergency (ER) | payer OTHER, SELFPAY ==
[2024-04-15] VITALS (7 sets, daily range): BP systolic 120–132; BP diastolic 67–99; PULSE 59–66; RESP 16; TEMP 36.7; O2SAT 98–100; BMI 40.7
--- NOTE | 2024-04-15 10:41 | PC.NURSE ---
DR YUN AT BEDSIDE
--- NOTE | 2024-04-15 10:43 | PC.NURSE ---
Stool Sample sent to lab
--- NOTE | 2024-04-15 10:43 | PC.NURSE ---
Dr. Morales at BS for pt eval
--- NOTE | 2024-04-15 10:50 | ED_ITS ---
Discharge Plan Disposition Patient Disposition: Home, Self-Care Prescriptions Prescriptions: No Action cephalexin 500 mg capsule 500 mg PO QID Qty: 40 0RF (DME) blood sugar diagnostic Strip See Rx Instructions .Route Qty: 100 2RF Rx Instructions: Pt is to test BID prn (DME) blood-glucose meter Kit See Rx Instructions .Route Qty: 1 0RF Rx Instructions: As directed (DME) lancets Misc See Rx Instructions .Route Qty: 100 0RF Rx Instructions: As directed lisinopril-hydrochlorothiazide 20-25 mg tablet 1 tab PO DAILY 90 Days Qty: 90 0RF estradiol 0.1 mg/24 hr patch semiweekly See Rx Instructions .ROUTE .COMPLEX Qty: 8 1RF Dose Instruction: APPLY 1 PATCH TO SKIN TWICE WEEKLY Rx Instructions: APPLY 1 PATCH TO SKIN TWICE WEEKLY Ozempic 0.25 mg or 0.5 mg (2 mg/3 mL) pen injector 0.5 mg SQ DAILY Patient Comments: INJECT 0.5 MG SUBCUTANEOUSLY ONCE WEEKLY fluticasone propionate [Flonase Allergy Relief] 50 mcg/actuation spray,suspension 1 - 2 spray intranasal DAILY Qty: 16 0RF Rx Instructions: administer into each nostril daily Referrals Follow up/Referrals: Tad Candelaria MD [Primary Care Provider] - See instructions Activity Restrictions/Add. Instructions Additional Instructions/Restrictions: As discussed your diarrhea PCR panel was negative including for C. difficile. It is possible this is a false negative but at the moment I am okay with you taking loperamide as this should be self-limiting. Please make sure you maintain adequate hydration and I also recommend a trial of probiotics. All of this can be taken [id number]. Please return with any significant worsening of your symptoms. I also recommend repeat diarrhea PCR panel testing if your symptoms persist as this could be false negative. Clinical Impressions Clinical Impression: Dehydration, moderate, Diarrhea Instructions Patient Instructions: DI for Diarrhea and Traveler's Diarrhea -- Adult, DI for Diarrhea and Traveler's Diarrhea -- Child, DI for Nausea -- Adult, DI for Nausea -- Child Print Language Print Language: Portuguese Discharge ED Provider: Tam Morales General Adult HPI General Chief complaint: Nausea/Vomiting/Diarrhea Stated complaint: poss c-diff-sent by dr. candelaria Time Seen by Provider: 04/15/24 10:39 Mode of Arrival: Ambulatory Source of Information: Patient Limitations: No Limitations Description of Symptoms (Recalled from ER Triage Doc. by RN): Patient reports diarrhea for 7 days. States she called Dr. Candelaria's office to get an appointment and they told her to come to the er because she would be able to get results sooner. History of Present Illness HPI narrative: Patient is a 53-year-old female presenting today with 7 days of diarrhea and abdominal cramping. She was recently on a prolonged course of antibiotics for an infection in her hand within the last month. She states that she has subsequently developed watery diarrhea numerous episodes daily she called her primary care doctor's office and they told her to come to the emergency department for C. difficile testing. She also states that she has had decreased p.o. intake and decreased urine output. No significant abdominal pain at the moment she describes it as intermittently crampy. Related Data Home Medications ?Medication ?Instructions ?Recorded ?Confirmed semaglutide 0.25 mg or 0.5 mg (2 0.5 mg SQ DAILY 03/04/24 03/21/24 mg/3 mL) subcutaneous pen injector (Ozempic) Previous Rx's ?Medication ?Instructions ?Recorded blood sugar diagnostic #100 ea 10/08/23 blood-glucose meter #1 ea 10/08/23 lancets #100 ea 10/08/23 fluticasone propionate 50 1 - 2 spray intranasal DAILY #16 03/04/24 mcg/actuation nasal grams spray,suspension (Flonase Allergy Relief) cephalexin 500 mg capsule 500 mg PO QID #40 caps 03/21/24 lisinopril 20 1 tab PO DAILY 90 days #90 tabs 03/29/24 mg-hydrochlorothiazide 25 mg tablet estradiol 0.1 mg/24 hr semiweekly See Rx Instructions .Route 04/14/24 transdermal patch .COMPLEX #8 patches Allergies Allergy/AdvReac Type Severity Reaction Status Date / Time erythromycin base Allergy Intermediate I-HIVES Verified 03/21/24 09:10 ibuprofen Allergy Intermediate SWELLING Verified 03/21/24 09:10 levofloxacin (From LEVAQUIN) Allergy Unknown S-DIFF. Verified 03/21/24 09:10 BREATHING PFSH PFS Disclaimer: The information contained in this section may have been updated after the patient was seen, as this information can be updated by other users. 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 Pap smear of vagina Skin tag of vulva Vasomotor symptoms due to menopause Sinusitis Otitis media Benign paroxysmal positional vertigo Asthma exacerbation Laryngitis Lumbar arthropathy Abdominal pain Low back pain Colon cancer Surgical History History of colonoscopy History of cholecystectomy History of hysterectomy Family History Grandmother Cancer Father Coronary artery disease Diabetes Hypertension Heart attack Mother Stroke Hypertension Social History Smoking Status: Never smoker alcohol intake: never substance use type: denies use current occupational status: employed household members: significant other and other housing: house 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 [employer] Other Medical History Have you received the Flu Vaccine for this season: No Have you received the Pneumonia Vaccine: No ROS Obtained: Yes All systems reviewed & no additional complaints except as documented Physical Exam General General appearance: alert and in no apparent distress Respiratory Respiratory exam: Present normal lung sounds bilaterally Cardiovascular Cardiovascular exam: Present other (Cool extremities with delayed capillary refill) Abdominal Exam Abdominal exam: Absent tenderness Neurological Exam Neurological exam: Present alert and oriented X3 Medical Decision Making Medical Records Screening: Per USPSTF and CDC recommendations, given the prevalence of disease in our region, it is our hospital?s policy to screen for HIV and viral Hepatitis for all patients aged 18 and over and those with ongoing risk factors. Enoch Inquiry Pt receiving controlled substance: No Vital Signs: 04/15/24 10:38 04/15/24 11:01 04/15/24 11:30 Temperature 98.0 F Temperature Source Oral Pulse Rate 62 59 L Pulse Rate [Radial] 66 Respiratory Rate 16 Blood Pressure 120/99 H 126/67 Blood Pressure [Right Arm] 132/68 Blood Pressure Mean 105 Blood Pressure Mean [Right Arm] 89 Blood Pressure Source [Right Arm] Automatic Cuff Blood Pressure Position [Right Arm] Sitting 02 Sat by Pulse Oximetry 99 99 100 Oxygen Delivery Method Room Air Room Air Room Air 04/15/24 12:00 04/15/24 12:31 04/15/24 13:01 Temperature Temperature Source Pulse Rate 61 60 59 L Pulse Rate [Radial] Respiratory Rate Blood Pressure 128/74 122/69 120/69 Blood Pressure [Right Arm] Blood Pressure Mean 84 86 95 Blood Pressure Mean [Right Arm] Blood Pressure Source [Right Arm] Blood Pressure Position [Right Arm] 02 Sat by Pulse Oximetry 100 99 100 Oxygen Delivery Method Room Air Room Air Lab Data Lab results reviewed: Yes I reviewed the patient's lab results. Lab Results 04/15/24 10:43: Stl Aeromonas (PCR) Not detected, Stl C. cayetanensis PCR Not detected, Stool Rotavirus (PCR) Not detected, Stl Adenov F 40/41 PCR Not detected, Stool Astrovirus (PCR) Not detected, Stool Campylobacter PCR Not detected, Stl C.difficile Tox PCR Not detected, Stool Cryptosporidium PCR Not detected, Stl E.coli Shiga Tox PCR Not detected, Stool E coli O157 PCR Not detected, Stl Enterotoxigenic E PCR Not detected, Stool EPEC (PCR) Not detected, Stool EAEC (PCR) Not detected, Stl E. histolytica PCR Not detected, Stool Giardia Lamblia PCR Not detected, Stool Salmonella PCR Not detected, Stool Sapovirus (PCR) Not detected, Stl P. shigelloides PCR Not detected, Stl Shigella/EIEC PCR Not detected, St Y.enterocolitica PCR Not detected, Stool Vibrio (PCR) Not detected, Stl Vibrio cholerae PCR Not detected, Stl Norovirus GI/GII PCR Not detected 04/15/24 11:00: WBC 4.7 L, RBC 4.17 L, Hgb 12.4, Hct 35.8 L, MCV 85.7, MCH 29.8, MCHC 34.8, RDW 13.9, Plt Count 161, MPV 7.9, Neut % (Auto) 53.0, Lymph % (Auto) 35.2, Briscoe % (Auto) 6.9, Eos % (Auto) 4.0, Baso % (Auto) 0.9, Neut # (Auto) 2.5, Lymph # (Auto) 1.6, Briscoe # (Auto) 0.3, Eos # (Auto) 0.2, Baso # (Auto) 0.0, Sodium 136, Potassium 3.6, Chloride 104, Carbon Dioxide 28, Anion Gap 7.6, BUN 11, Creatinine 0.60, Estimated Creat Clear 202, Estimated GFR 105, Est GFR ( Amer) 127, Glucose 100, Calcium 8.5, Phosphorus 2.8, Magnesium 2.2, Total Bilirubin 0.5, AST 26, ALT 26, Alkaline Phosphatase 53, Total Protein 6.7, Albumin 3.8, Globulin 2.9, Albumin/Globulin Ratio 1.3, Lipase 93, HIV 1&2 Antibody Rapid Nonreactive 04/15/24 11:00 04/15/24 11:00 Orders (Tests/Meds): ED MEDICATIONS Discontinued Medications Generic Name Dose Route Start Last Admin Trade Name Fatimah PRN Reason Stop Dose Admin Lactated Ringer's 1,000 mls @ 999 mls/hr 04/15/24 11:00 04/15/24 11:06 Lactated Ringer's 1000 Ml Bag IV 04/15/24 12:00 999 mls/hr .Q1H1M CEE Administration ORDERS Category Date Time Status CBC w/Auto Diff [Complete Blood Count Auto Diff] Stat Lab 04/15/24 11:00 Completed CMP [Comprehensive Metabolic Panel] Stat Lab 04/15/24 11:00 Completed Diarrhea 23 Panel, PCR Stat Lab 04/15/24 10:43 Completed HIV (1&2) Antibody Rapid Stat Lab 04/15/24 11:00 Completed Hep C Ab with Reflex to RNA Stat Lab 04/15/24 11:00 Received Lipase Stat Lab 04/15/24 11:00 Completed Magnesium Stat Lab 04/15/24 11:00 Completed Phosphorous Stat Lab 04/15/24 11:00 Completed Medical Decision Narrative: 53-year-old female presents today with a post antibiotic prolonged diarrheal illness. This highly concerning for C. difficile colitis. Other forms of invasive diarrhea could be on the differential as well she did bring in a stool sample we will send this for C. difficile. Additionally she is dehydrated clinically will check basic blood work and administer IV fluids and reassess Reassessment 107 labs unremarkable patient from a clinical standpoint has a benign exam. GI PCR panel has returned and is negative for all analytes. This could be a false negative particular for C. difficile but given the fact that this is negative I am okay with her taking loperamide as this is most likely viral at this point I also discussed the risk and benefits of her with probiotics even even though there is no definitive evidence that it is helpful certainly will be harmful I advised that she take [id number] probiotics. Return precautions emphasized I also advised that she have a repeat GI PCR panel done if she persistently has symptoms or if she has any worsening abdominal pain to come to the emergency department. Critical Care Critical Care Time Critical Care Time: No
[2024-04-15 10:51] LABS: Adenovirus F 40/41, stool Not Detected (NotDetected); Astrovirus Not Detected (NotDetected); Campylobacter Not Detected (NotDetected); Clostridium Difficile A/B, PCR Not Detected (NotDetected); Cryptosporidium Not Detected (NotDetected); Cyclospora Cayetanesis Not Detected (NotDetected); Entamoeba histolytica Not Detected (NotDetected); Enteroaggregative E coli Not Detected (NotDetected); Enteropathogenic E coli Not Detected (NotDetected); Enterotoxigenic E coli Not Detected (NotDetected); Giardia lamblia Not Detected (NotDetected); Norovirus Not Detected (NotDetected); Plesimonas Shigalloides, PCR Not Detected (NotDetected); Rotavirus A Not Detected (NotDetected); Salmonella, PCR Not Detected (NotDetected); Sapovirus Not Detected (NotDetected); Shiga-like toxin E coli Not Detected (NotDetected); Shigella Enterovasive E coli Not Detected (NotDetected); Vibrio Cholerae Not Detected (NotDetected); Vibrio, PCR Not Detected (NotDetected); Yersinia Entercolitica, PCR Not Detected (NotDetected)
[2024-04-15] MEDS: LACTATED RINGERS 1000ML 1,000 ML 999 ML IV (11:06)
[2024-04-15 11:23] LABS: Albumin Level 3.8 g/dl (3.5-5.0); Chloride 104 mmol/L (98-107); Sodium 136 mmol/L (136-145)
[2024-04-15 11:24] LABS: Potassium 3.6 mmoL/L (3.5-5.1)
[2024-04-15 11:25] LABS: Basophils % 0.9 % (0.1-2.0); Eosinophils # 0.2 K/mm3 (0.0-0.4); Hematocrit 35.8 % (37.0-47.0); Hemoglobin 12.4 g/dL (12.2-16.2); Lymphocytes # 1.6 K/mm3 (0.7-4.5); Lymphocytes % 35.2 % (10-50); Mean Corpuscular HGB Conc 34.8 g/dL (31.8-35.4); Mean Corpuscular Hemoglobin 29.8 pg (27.0-31.2); Mean Corpuscular Volume 85.7 fl (81-99); Mean Platelet Volume 7.9 fl (7.4-10.4); Monocytes # 0.3 K/mm3 (0.1-1.0); Monocytes % 6.9 % (1.7-9.3); Neutrophils # 2.5 K/mm3 (1.8-7.8); Platelet Count 161 K/mm3 (142-424); Red Blood Count 4.17 M/mm3 (4.20-5.40); Red Cell Distribution Width 13.9 % (11.5-17.5); White Blood Count 4.7 K/mm3 (4.8-10.8)
[2024-04-15 11:26] LABS: Alanine Aminotransferase 26 U/L (12-78); Albumin/Globulin Ratio 1.3 (1.1-1.8); Alkaline Phosphatase 53 U/L (38-126); Anion Gap 7.6 mEq/L (5-15); Aspartate Amino Transferase 26 U/L (14-36); Bilirubin,Total 0.5 mg/dl (0.2-1.3); Blood Urea Nitrogen 11 mg/dl (7-17); Carbon Dioxide 28 mmol/L (22.0-30.0); Creatinine Clearance Estimated 202 mL/min (50-200); Estimated Glomerular Filt Rate 105 ml/min (>60); GFR (African American) 127 ML/MIN (>60); Globulin 2.9 g/dL (1.3-3.2); Lipase 93 U/L (23-300); Total Protein,Serum 6.7 g/dl (6.3-8.2)
[2024-04-15 11:27] LABS: Calcium 8.5 mg/dl (8.4-10.2); Glucose 100 mg/dl (74-100); Magnesium 2.2 mg/dl (1.6-2.3); Phosphorous 2.8 mg/dl (2.5-4.5)
[2024-04-15 12:35] LABS: HIV (1&2) Antibody Rapid NONREACTIVE (NONREACTIVE)
[2024-04-16 07:14] LABS: HCV Ab Non Reactive (Non Reactive)
== END 2024-04-15 13:12 | disposition home or self-care (01) ==
PROVIDERS: Emergency Provider Student in an Organized Health Care Education/Training Program; PCP Family Medicine
DX: E86.0 Dehydration (principal); R10.9 Unspecified abdominal pain; R19.7 Diarrhea, unspecified; R34 Anuria and oliguria; R63.8 Other symptoms and signs concerning food and fluid intake
CPT/HCPCS: 80053; 83690; 83735; 84100; 85025; 86803; 87389; 87507; 96360; 99283; J7120

== ENCOUNTER 2024-05-11 12:36 | Outpatient (CLI) | payer OTHER, SELFPAY ==
--- NOTE | 2024-05-11 12:37 | MR_ITS ---
FINAL REPORT TECHNIQUE: Multiplanar MR without gadolinium enhancement CLINICAL HISTORY: persistent back pain. LOW BACK PAIN. BILATERAL LEG PAIN, NUMBNESS AND TINGLING. NUMBNESS BILATERAL FEET COMPARISON: None FINDINGS: Sagittal images show normal vertebral height. Alignment is normal. Marrow signal pattern is unremarkable. T11-12: Moderate left paracentral disc protrusion which contacts the left side of the spinal cord and produces left canal stenosis. T12-L1: A moderate annular bulge is present with bilateral central canal stenosis. L1-2: A moderate annular bulge is present with moderate facet overgrowth, mild central canal stenosis. L2-3: A large annular bulge is present, with a small midline disc extrusion which extends inferior from the level of the joint. There is facet overgrowth, severe central canal stenosis, and mild bilateral neural foraminal narrowing. L3-4: A moderate annular bulge and moderate facet arthropathy is present, with moderate central canal stenosis, and mild bilateral neural foraminal narrowing. L4-5: A moderate annular bulge is present, asymmetric to the left, with moderate facet overgrowth, mild central canal stenosis, and moderate bilateral neural foraminal narrowing. L5-S1: A minimal annular bulge is present with moderate facet arthropathy, mild central canal stenosis, and mild bilateral neural foraminal narrowing. IMPRESSION: Advanced lumbar degenerative disc disease as described, most severe at the L2-3 level. Reviewed, Interpreted and Dictated by Jacey Ruano MD Transcribed by Darlene Valle Authenticated and [facility]
== END 2024-05-11 23:59 | disposition home or self-care (01) ==
LOC: RAD 12:37
PROVIDERS: PCP Family Medicine; Visit Provider Family Medicine
DX: M47.816 Spondylosis without myelopathy or radiculopathy, lumbar region (principal); M54.50 Low back pain, unspecified
CPT/HCPCS: 72148

== ENCOUNTER 2024-05-23 09:04 | Emergency (ER) | payer OTHER, SELFPAY ==
[2024-05-23 09:20] VITALS: BP 118/72; PULSE 76; RESP 19; TEMP 36.6; O2SAT 98; BMI 43.0
--- NOTE | 2024-05-23 09:23 | EXP.UTC ---
Discharge Plan Disposition Patient Disposition: Home, Self-Care Condition: Good Prescriptions Prescriptions: New spmxyszw-rdnrjgfic-IM 3.5-10,000-1 mg/mL-unit/mL-% drops,suspension 4 drp otic (ear) Q8H 7 Days Qty: 10 0RF amoxicillin 875 mg tablet 875 mg PO Q12H Qty: 20 0RF No Action (DME) blood sugar diagnostic Strip See Rx Instructions .Route Qty: 100 2RF Rx Instructions: Pt is to test BID prn (DME) blood-glucose meter Kit See Rx Instructions .Route Qty: 1 0RF Rx Instructions: As directed (DME) lancets Misc See Rx Instructions .Route Qty: 100 0RF Rx Instructions: As directed estradiol 0.1 mg/24 hr patch semiweekly 1 patch topical WEEKLY Patient Comments: APPLY 1 PATCH TO SKIN TWICE WEEKLY lisinopril-hydrochlorothiazide 20-25 mg tablet 1 tab PO DAILY Patient Comments: TAKE 1 TABLET BY MOUTH ONCE DAILY. Ozempic 0.25 mg or 0.5 mg (2 mg/3 mL) pen injector 0.25 mg SQ WEEKLY Patient Comments: INJECT 0.5 MG SUBCUTANEOUSLY ONCE WEEKLY Referrals Follow up/Referrals: Tad Hernadez MD [Primary Care Provider] - See instructions Activity Restrictions/Add. Instructions Additional Instructions/Restrictions: Use drops as prescribed Take oral antibiotic as prescribed Follow up with you Family Doctor if no improvement Clinical Impressions Clinical Impression: Otitis media, Otitis externa Instructions Patient Instructions: Amoxicillin, How to Instill Ear Drops Print Language Print Language: Italian Discharge ED Provider: Yue Pascual [facility] General Stated complaint: Pain in R ear Time Seen by Provider: 05/23/24 09:23 History of Present Illness Provider Complaint: Patient states that she has been having pain in her right ear and feels like it may be swollen States that it is tender and hurts when she touches it States today she was still having pain so she came in to get it checked Related Data Home Medications ?Medication ?Instructions ?Recorded ?Confirmed estradiol 0.1 mg/24 hr semiweekly 1 patch topical WEEKLY 05/23/24 05/23/24 transdermal patch lisinopril 20 1 tab PO DAILY 05/23/24 05/23/24 mg-hydrochlorothiazide 25 mg tablet semaglutide 0.25 mg or 0.5 mg (2 0.25 mg SQ WEEKLY 05/23/24 05/23/24 mg/3 mL) subcutaneous pen injector (Ozempic) Previous Rx's ?Medication ?Instructions ?Recorded blood sugar diagnostic #100 ea 10/08/23 blood-glucose meter #1 ea 10/08/23 lancets #100 ea 10/08/23 amoxicillin 875 mg tablet 875 mg PO Q12H #20 tabs 05/23/24 dxjmfgrf-kizzlkxhe-hdcynfreu 3.5 4 drp otic (ear) Q8H 7 days #10 mL 05/23/24 mg-10,000 unit/mL-1 % ear drops,susp Allergies Allergy/AdvReac Type Severity Reaction Status Date / Time erythromycin base Allergy Intermediate I-HIVES Verified 04/20/24 09:22 ibuprofen Allergy Intermediate SWELLING Verified 04/20/24 09:22 levofloxacin (From LEVAQUIN) Allergy Unknown S-DIFF. Verified 04/20/24 09:22 BREATHING PFSH PFS Disclaimer: The information contained in this section may have been updated after the patient was seen, as this information can be updated by other users. 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 Pap smear of vagina Skin tag of vulva Vasomotor symptoms due to menopause Sinusitis Otitis media Benign paroxysmal positional vertigo Asthma exacerbation Laryngitis Lumbar arthropathy Abdominal pain Low back pain Colon cancer Surgical History History of colonoscopy History of cholecystectomy History of hysterectomy Family History Grandmother Cancer Father Coronary artery disease Diabetes Hypertension Heart attack Mother Stroke Hypertension Social History Smoking Status: Never smoker alcohol intake: never substance use type: denies use current occupational status: employed Travel in the last 8 weeks: None household members: significant other and other housing: house 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 [employer] Have you lived/traveled outside US in past 30 days?: No Contact w/someone who lives/traveled outside US past 30 days?: No Exposure to someone with infectious disease in past 14 days?: No Do you have a fever (greater than 100.4 F or 38 C)?: No Have you tested positive for COVID-19: No Exposed to someone with COVID-19 in past 14 days?: No Do you have a sore throat?: No Do you have a cough?: No Do you have any weakness?: No Do you have any diarrhea?: No Are you experiencing any unusual bleeding?: No Do you have any muscle aches/pain?: No Do you have any abdominal pain?: No Are you experiencing loss of taste or smell?: No ROS Obtained: Yes All systems reviewed & no additional complaints except as documented and Yes Systems reviewed as appropriate & no additional complaints except as documented Constitutional Constitutional: Reports system reviewed and no additional complaints, except as documented and Reports as per HPI ENT Ears, Nose, Mouth, and Throat: Reports system reviewed and no additional complaints, except as documented, Reports as per HPI and Reports otalgia Cardiovascular Cardiovascular: Reports system reviewed and no additional complaints, except as documented and Reports as per HPI Respiratory Respiratory: Reports system reviewed and no additional complaints, except as documented and Reports as per HPI Gastrointestinal Gastrointestingal: Reports system reviewed and no additional complaints, except as documented and as per HPI Physical Exam General General appearance: alert and in no apparent distress ENT ENT exam: Present mucous membranes moist Expanded ENT Exam External ear exam: Present pain with movement (right) and external tenderness (right) TM/Canal exam: Right TM: erythema and bulging Respiratory Respiratory exam: Present normal lung sounds bilaterally; Absent respiratory distress or wheezes Cardiovascular Cardiovascular exam: Present regular rate, normal rhythm and normal heart sounds Neurological Exam Neurological exam: Present alert, oriented X3 and normal gait Medical Decision Making Medical Records Screening: Per USPSTF and CDC recommendations, given the prevalence of disease in our region, it is our hospital?s policy to screen for HIV and viral Hepatitis for all patients aged 18 and over and those with ongoing risk factors. Enoch Inquiry Pt receiving controlled substance: No Enoch was queried for this patient: No
[2024-05-23 09:35] VITALS: BP 118/72; PULSE 76; RESP 19; TEMP 36.6; O2SAT 98
== END 2024-05-23 09:38 | disposition home or self-care (01) ==
PROVIDERS: Emergency Provider Nurse Practitioner; PCP Family Medicine
DX: H66.91 Otitis media, unspecified, right ear (principal); H60.91 Unspecified otitis externa, right ear; H92.01 Otalgia, right ear
CPT/HCPCS: 99212; G0381

== ENCOUNTER 2024-06-16 11:40 | Outpatient (CLI) | payer OTHER, SELFPAY ==
[2024-06-16 16:52] LABS: Basophils % 0.6 % (0.1-2.0); Eosinophils # 0.2 K/mm3 (0.0-0.4); Eosinophils % 2.5 % (0.1-12.0); Hematocrit 40.3 % (37.0-47.0); Hemoglobin 13.3 g/dL (12.2-16.2); Lymphocytes # 2.1 K/mm3 (0.7-4.5); Lymphocytes % 32.4 % (10-50); Mean Corpuscular Volume 87.8 fl (81-99); Mean Platelet Volume 11.1 fl (7.4-10.4); Monocytes # 0.5 K/mm3 (0.1-1.0); Monocytes % 7.8 % (1.7-9.3); Neutrophils # 3.6 K/mm3 (1.8-7.8); Neutrophils % 56.5 % (37.0-80.0); Platelet Count 205 K/mm3 (142-424); Red Blood Count 4.59 M/mm3 (4.20-5.40); Red Cell Distribution Width 13.2 % (11.5-17.5); White Blood Count 6.3 K/mm3 (4.8-10.8)
[2024-06-16 17:21] LABS: Erythrocyte Sedimentation Rate 16 mm/hr (0-30)
[2024-06-16 17:33] LABS: Alanine Aminotransferase 31 U/L (12-78); Albumin Level 4.5 g/dl (3.5-5.0); Albumin/Globulin Ratio 1.7 (1.1-1.8); Alkaline Phosphatase 64 U/L (38-126); Anion Gap 15.9 mEq/L (5-15); Aspartate Amino Transferase 32 U/L (14-36); Bilirubin,Total 0.6 mg/dl (0.2-1.3); Blood Urea Nitrogen 18 mg/dl (7-17); Calcium 9.2 mg/dl (8.4-10.2); Carbon Dioxide 27 mmol/L (22.0-30.0); Chloride 98 mmol/L (98-107); Estimated Glomerular Filt Rate 105 ml/min (>60); GFR (African American) 127 ML/MIN (>60); Globulin 2.7 g/dL (1.3-3.2); Glucose 80 mg/dl (74-100); Potassium 3.9 mmoL/L (3.5-5.1); Sodium 137 mmol/L (136-145); Total Protein,Serum 7.2 g/dl (6.3-8.2)
[2024-06-16 17:49] LABS: C-Reactive Protein 12.7 mg/L (0-4)
[2024-06-17 06:43] LABS: RA Latex Turbid. <10.0 IU/mL (<14.0)
[2024-06-17 14:04] LABS: Anti-Centromere B Antibodies <0.2 AI (0.0-0.9); Anti-DNA (DS) Ab Qn <1 IU/mL (0-9); Anti-Jo-1 <0.2 AI (0.0-0.9); Anti-Smith Antibody <0.2 AI (0.0-0.9); Antichromatin Antibodies <0.2 AI (0.0-0.9); Antiscleroderma-70 Antibodies <0.2 AI (0.0-0.9); RNP Antibodies 0.5 AI (0.0-0.9); Sjogren's Anti-SS-A <0.2 AI (0.0-0.9); Sjogren's Anti-SS-B <0.2 AI (0.0-0.9)
== END 2024-06-16 23:59 | disposition home or self-care (01) ==
LOC: LAB.DROPOF 06-17 08:36
PROVIDERS: PCP Nurse Practitioner Family; Visit Provider Nurse Practitioner Family
DX: M25.50 Pain in unspecified joint (principal); J03.90 Acute tonsillitis, unspecified
CPT/HCPCS: 80053; 85025; 85651; 86140; 86225; 86235; 86431; 87070

== ENCOUNTER 2024-08-15 06:56 | Outpatient (CLI) | payer OTHER, SELFPAY ==
--- NOTE | 2024-08-15 06:57 | CT_ITS ---
FINAL REPORT TECHNIQUE: Thin section axial CT images of the temporal bones were obtained. Coronal and sagittal reformatted images were also obtained. This study was performed with techniques to keep radiation doses as low as reasonably achievable (ALARA). Individualized dose reduction techniques using automated exposure control or adjustment of mA and/or kV according to the patient's size were employed. CLINICAL HISTORY: .R/O MASTOIDITIS COMPARISON: None FINDINGS: Right temporal bone: The internal auditory canal has an unremarkable appearance. The inner ear structures are unremarkable. The external auditory canal has an unremarkable appearance. No abnormality is identified of the middle ear cavity. The ossicles are intact. There is trace fluid in the inferior most mastoid air cells. No bony mass is identified. No evidence of bone destruction is noted. Left temporal bone: The internal auditory canal has an unremarkable appearance. The inner ear structures are unremarkable. There is a small amount of presumed cerumen in the external auditory canal. No abnormality is identified of the middle ear cavity. The ossicles are intact. There is trace fluid in the inferior most mastoid air cells. No bony mass is identified. No evidence of bone destruction is noted. Note is made of a mucous retention cyst or polyp in the left maxillary sinus. IMPRESSION: Trace fluid is present in the inferior mastoid air cells bilaterally. No evidence of bone destruction identified. Reviewed, Interpreted and Dictated by Yeni García MD Transcribed by Darlene Valle Authenticated and [facility]
== END 2024-08-15 23:59 | disposition home or self-care (01) ==
LOC: RAD 06:56
PROVIDERS: PCP Family Medicine; Visit Provider Nurse Practitioner
DX: H92.01 Otalgia, right ear (principal); H69.93 Unspecified Eustachian tube disorder, bilateral; M26.623 Arthralgia of bilateral temporomandibular joint
CPT/HCPCS: 70480

== ENCOUNTER 2024-11-10 08:41 | Outpatient (CLI) | payer OTHER, SELFPAY ==
--- OUTSIDE RECORDS SUMMARY | 2024-11-10 08:44 | XMS_ITS | Encounter Summary ---
Author Organization Healthcare Address [address] [place] [address] Care Team Providers Care Fur Scraper Name Role Phone Kim Roth Primary Care Provider [phone] Loco Valente Primary Care Provider Loco Valente Unavailable [phone] Tad Hernadez MD Primary Care Provider Aye vailable Encounter Details Date Type Department Care Team (Late st Contact Info) Description 12/09/2022 Orders Only External Location [address] [place] [address] Provider, External Social History Tobacco Use Types Packs/Day Years Used Date Smoking Tobacco: Never Alcohol Use Standard Drinks/Week Comments No 0 (1 standard drink = 0.6 oz pur e alcohol) Comments Unknown Sex and Gender Information Value Date Recorded Sex Assigned at Not on file Legal Sex Female 7:34 PM EDT Gender Identity Not on file Sexual Orientation Not on file documented as of this encounter Plan of Treatment Not on file documented as of this encounter Procedures Procedure Name Priority Date/Time Associated Diagnosis Comments CT CHEST W IV CONTRAST 12/09/2022 8:24 AM EDT documented in this encounter Results * CT Chest w IV Contrast (12/09/2022 8:24 AM EDT) Anatomical Region Laterality Modality Chest Computed Tomogra phy 12/09/2022 8:24 AM EDT External Provider IMG CT PROCEDURES Final Result documented in this encounter Visit Diagnoses Not on filedocumented in this encounter Care Teams Fur Scraper Relationship Specialty Start Date End Date Kim Roth PA [address] [place] [address] PCP - General 10/05/20 01/13/23 Loco Valente PA [address] [place] [id number] PCP - General 01/14/23 02/21/24 Tad Hernadez MD [address] [place] [id number] PCP - General Family Medicine 02/22/24 Loco Valente PA [address] [place] [id number] Referring Physician 01/14/23 documented as of this encounter
--- OUTSIDE RECORDS SUMMARY | 2024-11-10 08:44 | XMS_ITS | Referral Summary ---
Author Organization [employer] Address [address] [place] [address] Care Team Providers Care Senior Solutions Workflow Consultant Name Role Phone Loco Valente Primary Care Provider Allergies Active Allergy Reactions Criticality Noted Date Comments Erythromycin 12/30/2022 Ibuprofen 12/30/2022 Levofloxacin 12/30/2022 Medications traMADoL (ULTRAM) 50 mg tablet Take 1 tablet (50 mg total) by mouth every 6 (six) hours as needed. Max Daily Amount: 200 mg 12/09/2022 Active torsemide (DEMADEX) 20 MG tablet Take 1 tablet (20 mg total) by mouth daily. 12/24/2022 Active predniSONE (DELTASONE) 20 MG tablet Take by mouth. 11/27/2022 Active neomycin-polymy elizabeth-hydrocortis one (CORTISPORIN) 3.5-10,000-1 mg/mL-unit/mL-% otic suspension 1 drop 3 (three) times daily. 12/09/2022 Active lisinopril-hydr oCHLOROthiazide (PRINZIDE,ZESTO RETIC) 20-12.5 mg per tablet Take 1 tablet by mouth daily. 12/03/2022 Active furosemide (LASIX) 20 MG tablet Take 1 tablet (20 mg total) by mouth daily. 11/27/2022 Active estradioL (VIVELLE-DOT) 0.1 mg/24 hr patch 1 patch twice a week. 12/06/2022 Active doxycycline (VIBRAMYCIN) 100 MG capsule Take 1 capsule (100 mg total) by mouth 2 (two) times daily. 11/27/2022 Active Ventolin HFA 90 mcg/actuation inhaler 2 puffs every 4 (four) hours. 12/12/2022 Active benzonatate (TESSALON) 100 MG capsule Take 1 capsule (100 mg total) by mouth 3 (three) times daily. 10/02/2022 Active cephalexin (KEFLEX) 500 MG capsule Take 1 capsule (500 mg total) by mouth every 6 (six) hours. 12/09/2022 Active Active Problems Problem Noted Date Diagnosed Date ERRONEOUS ENCOUNTER--DISREGARD 02/25/2023 Localized, primary osteoarthritis of elbow, righ t 01/20/2023 Medial epicondylitis of elbow, right 01/20/2023 Social History Tobacco Use Types Packs/Day Years Used Date Smoking Tobacco: Never Smokeless Tobacco: Never Alcohol Use Standard Drinks/Week Comments Never 0 (1 standard drink = 0.6 oz pur e alcohol) Interpersonal Safety Answer Date Record ed Family or friends hurt you Not on file 06/13 Family or friends insult you Not on file Family or friends threaten you Not on file 0 06/13/2023 Family or friends scream or curse at you Not on file 06/13/2023 Housing Stability Answer Date Recorded Living situation today Not on file Living situation problems Not on file 2023 Food Insecurity Answer Date Recorded Food run out past 12 months Not on file 05/26 Food did not last past 12 months Not on file 06/13/2023 Employment Answer Date Recorded Help finding and keeping a job Not on file 0 06/13/2023 Family and Community Support Answer Gonzalo e Recorded Help with Day to Day Activities Not on file 06/13/2023 Feeling Lonely or Isolated Not on file 06/13 Educational Attainment Answer Date Jose rded Speak language other than Moroccan at home Not on file 06/13/2023 Want help with school or training Not on file 06/13/2023 Depression Answer Date Recorded PHQ-2 Risk Not on file 06/13/2023 Disabilities Answer Date Recorded Difficulty concentrating Not on file 024 Difficulty doing errands alone Not on file 0 06/13/2023 Substance Use Answer Date Recorded Used prescription meds for non-medical reasons N ot on file 06/13/2023 Used illegal drugs past 12 months Not on file 06/13/2023 Comments Unknown Sex and Gender Information Value Date Recorded Sex Assigned at Not on file Legal Sex Female 3:16 PM CDT Gender Identity Not on file Sexual Orientation Not on file Last Filed Vital Signs Vital Sign Reading Time Taken Comments Blood Pressure 114/74 12/30/2022 3:07 PM EDT Pulse 76 12/30/2022 3:07 PM EDT Temperature - - Respiratory Rate - - Oxygen Saturation - - Inhaled Oxygen Concentration - - Weight 208.7 kg (460 lb) 12/30/2022 3:07 PM EDT Height 170.2 cm (5' 7 ) 12/30/2022 3:07 PM EDT Body Mass Index 72.05 12/30/2022 3:07 PM EDT Plan of Treatment Not on file Insurance [facility] Care Teams Senior Solutions Workflow Consultant Relationship Specialty Start Date End Date Loco Valente PA [address] [place] [address] PCP - General Physician [employer] Diver 12/10/22
--- OUTSIDE RECORDS SUMMARY | 2024-11-10 08:44 | XMS_ITS | Clinical Summary ---
Author Organization [employer] Address [address] [place] [address] Care Team Providers Care It Operations Analyst Name Role Phone Loco Valente Primary Care [...] 01/20/2023 Medial epicondylitis of elbow, right 01/20/2023 Family History Medical History Relation Name Comments Cancer Other Diabetes Other Heart disease Other High blood pressure Other Rheumatologic disease Other Stroke Other Thyroid disease Other Relation Name Status Comments Other Social History Tobacco Use Types Packs/Day Years [...] Date Jose rded Speak language other than Honduran at home Not on file 06/13/2023 Want [...] 12/30/2022 3:07 PM EDT Plan of Treatment Health Maintenance Due Date Last Done Comments CT Colonography 1970 Colonoscopy 1970 Colorectal Cancer Screening 1970 FOBT/FIT 1970 Fit-DNA (Cologuard) 1970 Sigmoidoscopy 1970 Depression Screening (12+) 1982 Tobacco Cessation Counseling and Screening (12+) 08/13 HIV Screening 1985 Hepatitis C Screening 1988 Pap Smear 08/14/1991 Breast Cancer Screening 2010 Lipid Panel 08/14/2015 Pneumococcal 50+ years (1 of 1 - PCV) 2020 Shingles Vaccine (Zoster) (1 of 2) 2020 COVID-19 VACCINE (1 - season) 2024 Influenza Vaccine (Season Ended) 2025 DTAP/TDAP/TD VACCINES (2 - Td or Tdap) 08/11/2028 Insurance [facility] Care Teams It Operations Analyst Relationship Specialty Start Date End Date Loco Valente PA [address] [place] [address] PCP - General Physician Sdv Pilot/Navigator/Dds Operator 12/10/22
--- OUTSIDE RECORDS SUMMARY | 2024-11-10 08:44 | XMS_ITS | Encounter Summary ---
Author Organization Healthcare Address [address] [place] [address] Care Team Providers Care Director Sales Training Name Role Phone Kim Roth Primary Care Provider [phone] Loco Valente Primary Care Provider [phone] Loco Valente Unavailable [phone] Tad Hernadez MD Primary Care Provider Aye vailable Encounter Details Date Type Department Care Team (Late st Contact Info) Description 01/01/2023 [facility] [address] [place] [address] Loco Valente PA [address] [place] [address] Degeneration of thoracic intervertebral disc (Primary Dx) Social History Tobacco Use Types Packs/Day Years [...] on file documented as of this encounter Visit Diagnoses Diagnosis Degeneration of thoracic intervertebral disc- Primary Degeneration of thoracic or thoracolumbar intervertebral disc documented in this encounter Care Teams Director Sales Training Relationship Specialty Start Date End Date Kim Roth PA [address] [place] [address] PCP - General 10/05/20 01/13/23 Loco Valente PA [address] [place] [id number] PCP - General 01/14/23 02/21/24 Tad Hernadez MD [address] [place] [id number] PCP - General Family Medicine 02/22/24 Loco Valente PA [address] [place] [id number] Referring Physician 01/14/23 documented as of this encounter
--- OUTSIDE RECORDS SUMMARY | 2024-11-10 08:44 | XMS_ITS | Data Portability ---
Author Organization [place] - [facility] & NEIL Copeland ADMIN Address [address] [place] [address] Care Team Providers Care Diagram Clerk Name Role Phone BRINAMICHEL Primary Care Provider Assessment No assessment recorded. Plan of Treatment Reminders Order Date Submit Date Provider Last Modified By Organization Details Last Modified Time Details Appointments None recorded. Lab influenza virus A + B + SARS-CoV-2 (COVID19) Ag panel, rapid IA, upper respiratory specimen 2023 024 [email or web address] 40 [facility], [address] [place] [address], [address], 4 07:49:30 Referral None recorded. Procedures None recorded. Surgeries None recorded. Imaging US, duplex, venous, lower extremity, unilateral - No precert required 2023 024 [email or web address] [facility] - Centralized Scheduling, [address] [facility], [place], [address], 4 06:58:16 Medication Orders torsemide 20 mg tablet 2023 024 [email or web address] 40 [facility], [address] [place], [address], 4 16:56:31 torsemide 20 mg tablet 2023 024 MAGGIE [facility], [address] [place], [address], 4 10:37:38 estradiol 0.1 mg/24 hr semiweekly transdermal patch 2023 024 [facility], [address] [place], [address], 4 16:10:39 tramadol 50 mg tablet 2023 024 [facility], [address] [place], [address], 4 17:43:01 prednisone 20 mg tablet 2023 024 [facility], [address] [place], [address], 4 17:36:12 albuterol sulfate HFA 90 mcg/actuati on aerosol inhaler 2023 024 [facility], [address] [place], [address], 4 16:28:01 dexamethaso ne sodium phosphate 4 mg/mL injection solution [address] [facility], [address] [place], [address], 4 15:32:54 ceftriaxone 1 gram solution for injection [address] [facility], [address] [place], [address], 4 15:32:47 Medrol (Puneet) 4 mg tablets in a dose pack [address] [facility], [address] [place], [address], 4 15:33:15 Augmentin 500 mg-125 mg tablet 2023 024 [email or web address], [address] [place], [address], 15:32:49 Patient TargetsNo targets recorded. Patient InstructionsNo instructions recorded. Reason for Referral None Reported. Results Created Date Observation Date Name Description Value Unit Range Abnormal Flag Note LastModifiedBy Organization Detail LastModifiedTime 06/25/19 24 06/25/2023 influ j luis virus A + B + SARS- CoV-2 (COVI D19) Ag panel , rapid IA, upper respi rator y speci men FLU A negati ve Not Available [address], [address], 06/25/2023 14:23:59 06/25/19 24 06/25/2023 influ j luis virus A + B + SARS- CoV-2 (COVI D19) Ag panel , rapid IA, upper respi rator y speci men FLU B negati ve Not Available [address], [address], 06/25/2023 14:23:59 06/25/19 24 06/25/2023 influ j luis virus A + B + SARS- CoV-2 (COVI D19) Ag panel , rapid IA, upper respi rator y speci men SARS COV + SARS OV 2 negati ve Not Available [address], [address], 06/25/2023 14:23:59 06/03/19 24 XR, sinus es No observ ation record ed. [email or web address] [address], [address], 06/03/2023 15:07:23 06/05/19 24 tympa nogra m No observ ation record ed. [email or web address] Not Available 2023 09:48:22 06/11/[address], sinus es, w/o contr ast No observ ation record ed. [email or web address] Not Available 2023 11:51:12 07/10/19 24 07/10/2023 venou s duple x lower left [facility] [address] [place] [address] Phone: Fax: Name: BERENICE SOLIS RD Exam Date: : 971 Age 52 years Gender : F Access ion: [id number] Physic jossie: DANIEL MCCARTY ty: [facility] HSV: Outpat ient Exam: VENOUS DUPLEX LOWER LEFT LEFT LOWER EXTREM ITY VENOUS DUPLEX , 024: CLINIC AL HISTOR Y: Left lower extrem ity pain and swelli ng. COMPAR ANDERS: None. TECHNI QUE: Duplex scan was perfor med using B-mode /ludmila mihaela imagin g with Dopple r spectr al analys is and color flow. FINDIN GS: The deep venous struct ures of the left lower extrem ity from the common femora l vein throug h the calf veins are fully compre ssible withou t echoge cecilio intral uminal materi al. The deep venous struct ures of the left lower extrem ity from the common femora l vein throug h the poplit eal vein demons trate phasic flow with normal augmen tation and respir atory variat ion. IMPRES ART: NO DEEP VENOUS THROMB OSIS OF THE LEFT LOWER EXTREM ITY. Dictat ed By: LUISA MOURA Transc ribed By: LUISA MOURA Transc ribed On: 5:14 PM Electr onical ly signed by: LUISA MOURA Thank you for referr BERENICE Malik RD to [facility]. Legall y authen ticate d by Luisa paredes MD 2023-0 -16 17:14: 39 CC'ed Logic: Orderi ng Provid er: LUCIANO PEARSON CC Provid er: LUCIANO PEARSON Attend ing Provid er: LUCIANO PEARSON Referr ing Provid er: LUCIANO PEARSON Admitt ing Provid er: LUCIANO PEARSON [email or web address] [facility] ([facility]) [address] [place] [address] , [place], [address], 07/13/2023 07:43:48 Result Notes None recorded. Problems Name Problem SNOMED Code Status Onset Date Resolution Date Notes Provider Name and Address Organization Details Recorded Time Menopausal syndrome 640039886 Active 2021 Sapna Iglesias , [facility], [place], [address], [place] - [facility] [place] & [place] 2 15:35:25 Menopausal and postmenopau lucinda disorders 529617913 Active 2022 Aleshia Hermosillo, KATHERINE [address] [place] [address],[address], [place], [address], [place] [facility] [place] 3 13:59:18 Influenza caused by Influenza A virus 847452388 Active 2022 Aleshia Hermosillo, KATHERINE [address] [place] [address],[address], [place], [address], [place] [facility] [place] & [place] 3 15:34:54 Benign hypertensio n 77017047 Active 2022 Aleshia Hermosillo NP [address] [place] [address],[address], [place], [address], [place] - [facility] [place] & [place] 3 13:59:08 SARS-CoV-2 antibody detected 905375357 Active 2022 Aleshia Hermosillo NP [address] [place] [address],[address] [place], [address], [place] [facility] [place] 3 15:36:40 Blood glucose outside reference range 143457406 Active 2022 Aleshia Hermosillo NP [address] [place] [address],[address], [place], [address], [place] [facility] [place] 3 14:14:01 Iron deficiency anemia 94496514 Active 2022 Aleshia Hermosillo NP [address] [place] [address],[address], [place], [address], [place] [facility] [place] 3 13:59:12 Vitamin D deficiency 35595894 Active 2022 Aleshia Hermosillo NP [address] [place] [address],[address], [place], [address], [place] [facility] [place] 3 13:59:21 Pain of multiple joints 30180827 Active 2022 Aleshia Hermosillo NP [address] [place] [address],[address], [place], [address], [place] [facility] [place] 3 14:17:36 Fatigue 53175202 Active 2022 Aleshia Hermosillo NP [address] [place] [address],[address], [place], [address], [place] [facility] [place] 3 14:18:37 Pain of right elbow joint 6451032497065 9109 Active 2022 Aleshia Hermosillo NP [address] [place] [address],[address], [place], [address], [place] [facility] [place] 3 14:22:00 Obstructive sleep apnea syndrome 14708348 Active 2022 Aleshia Hermosillo NP [address] [place] [address],[address], [place], [address], [place] [facility] [place] 3 15:05:54 Rosacea 044869005 Active 2022 Aleshia Hermosillo, KATHERINE [address], [place], [address], [place] [facility] [place] 3 15:06:28 Bursitis of elbow 562299231 Active 2022 Aleshia Hermosillo, KATHERINE [address] [place] [address], [place], [address], [place] [facility] [place] 3 15:22:37 Urinary symptoms 439979228 Active 2022 Cristal Espinal [facility], [place] - [facility] - [place] 3 11:04:20 Right flank pain 893782011 Active 2022 Kathrine Streeter PA-C [address], [place], [address], [place] [facility] [place] 3 11:28:15 Bursitis of olecranon of right elbow 7174418841729 08 Active 2022 Kathrine Streeter PA-C [address], [place], [address], [place] [facility] [place] 3 11:29:05 Thoracic back pain 672316945 Active 2022 JYOTI PEDROZA [facility] [address], [place], [address], [place] [facility] [place] 3 14:07:23 Compression fracture of thoracic vertebra 3785902177574 Active 2022 JYOTI PEDROZA [address], [place], [address], [place] [facility] [place] 3 14:34:52 Multiple nodules of lung 512573109 Active 2022 JYOTI PEDROZA [address], [place], [address], [place] [facility] [place] 3 08:14:10 Pain in thoracic spine 555239554 Active 2022 JYOTI PEDROZA [facility],[address] [place] [address], [address], [place] [facility] [place] 3 08:15:58 Acute otitis externa of right ear 9283198258841 104 Active 2022 JYOTI PEDROZA [address] [place] [address],[address] [place] [address], [address], [place] [facility] [place] 3 14:59:08 Chronic obstructive pulmonary disease 17282705 Active 2022 Aleshia Hermosillo NP [address] [place] [address] [address] [place] [facility],[address] [place] [address], [address], [place] [facility] [place] 3 08:16:10 Body fluid retention 35959658 Active 2022 JYOTI PEDROZA [facility] [address] [facility],[address] [place] [address], [address], [place] [facility] [place] 3 14:26:07 Degeneratio n of thoracic interverteb ral disc 78908124 Active 2022 Aleshia Hermosillo NP [address] [place] [address],[address], [address], [place] [facility] [place] 3 08:16:23 Pain of ear 009910744 Active 2022 JYOTI PEDROZA [facility],[address] [place] [address], [address], [place] [facility] [place] 3 14:28:50 Essential hypertensio n 25641827 Active 2022 Aleshia Hermosillo NP [address] [place] [address],[address], [address], [place] [facility] [place] 3 08:16:12 Acute upper respiratory infection 74386503 Active 2022 JYOTI PEDROZA [address], [place], [address], [place] [facility] [place] 3 13:50:05 Chest wall pain 302815265 Active 2022 JYOTI PEDROZA [facility] [address] [facility],[address] [place], [address], [place] [facility] [place] 3 09:56:51 Cough 66769194 Active 2022 JYOTI PEDROZA [facility] [address], [place], [address], [place] [facility] [place] 3 09:56:56 Left upper zone pneumonia 248977441 Active 2022 JYOTI PEDROZA [facility] [address] [facility],[address], [address], [place] [facility] [place] 3 09:48:33 Seasonal allergy 891396806 Active 2022 Aleshia Hermosillo, KATHERINE [address] [facility],[address] [place], [address], [place] [facility] [place] 3 10:34:17 Right side sciatica 0243231869970 01 Active 2022 JYOTI PEDROZA [facility] [address] [facility],[address] [place], [address], [place] [facility] [place] 3 14:58:31 Pain of left hip joint 5570756397924 00 Active 2022 JYOTI PEDROZA [facility] [address] [facility],[address] [place], [address], [place] [facility] [place] 3 09:20:26 Pain in left lower limb 600491349 Active 2022 JYOTI PEDROZA [address] [facility],[address] [place], [address], [place] [facility] [place] 3 09:20:31 Left side sciatica 2194004889465 04 Active 2022 JYOTI PEDROZA [facility],[address], [place], [address], [place] [facility] [place] 3 09:20:40 Lumbar radiculopat hy 625759748 Active 2022 JYOTI PEDROZA [facility],[address], [place], [address], [place] [facility] [place] 3 09:20:46 Acute maxillary sinusitis 94435693 Active 2023 JYOTI PEDROZA [facility],[address], [place], [address], [facility] - [facility] - [place] 4 15:06:49 Candidiasis of mouth 61053239 Active 2023 JYOTI PEDROZA [facility],[address], [place], [address], [place] [facility] [place] 4 13:27:34 Edema of left lower leg 008023140 Active 2023 JYOTI PEDROZA [facility],[address] [place] [address], [address], [place] - [facility] [place] 4 16:00:41 Problem Notes None recorded. Procedures Surgical History Date Name Laterality Status Provider Name and Address Organization Details Recorded Time 7 Other completed August Teddy GILLIAM - [facility] & [place] 10/02/2022 15:20:06 6 Cert Occupational Therapy Asst Surgery completed August Teddy Sebastian [facility] & [place] 10/02/2022 15:20:06 3 Other completed August Teddy GILLIAM - [facility] & [place] 10/02/2022 15:20:06 Tubal Ligation completed Lisa GILLIAM [facility] & [place] 04/25/2022 15:25:52 Hysterectomy completed Lisa TREJO [facility] & [place] 04/25/2022 15:26:05 Imaging Results None recorded. Procedure Notes None recorded. Medical Equipment None Reported. Allergies Allergen ID Allergen Name Allergen Category Reaction Reaction Severity Criticality Documentation Date Start Date Code Code System Note Provider Name and Address Organization Details Recorded Time 08233 erythromy italia medicatio n hives mild Not available 04/25/2022 4053 RxNorm Lisa ceja, TA[place]NA TREJO [facility] & [place] 2 15:22:43 94869 Levaquin medicatio n hives mild Not available 04/25/2022 82896 2 RxNorm Lisa ceja, TA[place]NA TREJO [facility] & [place] 2 15:22:59 49253 ibuprofen medicatio n facial swelling moderate Not available 04/25/2022 5640 RxNorm Lisa ceja, TA[place]NA TREJO [facility] & [place] 2 15:23:23 Medications Name Sig Start Date Stop Date Status Note LastModified by Organization Details LastModified Time cyclobenzap rine 10 mg tablet TAKE 1 TABLET BY MOUTH 3 TIMES DAILY 07/10 completed Not Available Not Available Not Available amoxicillin 500 mg capsule TAKE 1 CAPSULE BY MOUTH EVERY 8 HOURS 09/29 completed Not Available Not Available Not Available methocarbam ol 500 mg tablet 03/04 completed Not Available Not Available Not Available nystatin 100,000 unit/mL oral suspension Take 5 mL 4 times a day by oral route. 07/10 completed Not Available Not Available Not Available doxycycline hyclate 100 mg capsule 12/24 completed Not Available Not Available Not Available ipratropium 0.5 mg-albutero l 3 mg (2.5 mg base)/3 mL nebulizatio n soln 07/10 completed Not Available Not Available Not Available torsemide 20 mg tablet TAKE 1 TABLET BY MOUTH DAILY. active Not Available Not Available No t Available lisinopril 20 mg-hydrochl orothiazide 12.5 mg tablet 04/02 completed Not Available Not Available Not Available hydrocodone 5 mg-acetamin ophen 325 mg tablet TAKE 1 TABLET BY MOUTH EVERY 6 HOURS NEEDED FOR PAIN. 07/10 completed Not Available Not Available Not Available prednisone 20 mg tablet TAKE 3 TABLETS A DAY FOR 2 DAYS , THEN 2 TABLETS A DAY FOR 2 DAYS, THEN 1 DAILY FOR 2 DAYS active Not Available Not Available No t Available estradiol 0.1 mg/24 hr semiweekly transdermal patch APPLY 1 PATCH TO SKIN 2 TIMES WEEKLY active Not Available Not Available No t Available tramadol 50 mg tablet Take 1 tablet every 6 hours by oral route as needed. 2023 active Not Available Not Available Not Avai lable acetaminoph en 500 mg tablet 04/02 completed Not Available Not Available Not Available ketorolac 10 mg tablet TAKE 1 TABLET BY MOUTH THREE TIMES DAILY 06/03 completed Not Available Not Available Not Available ceftriaxone 1 gram solution for injection Take 1 g by injection route for 1 day. 07/10 completed Not Available Not Available Not Available Diflucan 100 mg tablet Take 1 tablet every other day by oral route for 10 days. 06/25 completed Not Available Not Available Not Available benzonatate 100 mg capsule TAKE 1 CAPSULE BY MOUTH THREE TIMES DAILY FOR 10 DAYS 10/13 completed Not Available Not Available Not Available cephalexin 500 mg capsule TAKE 1 CAPSULE BY MOUTH TWICE DAILY FOR 10 DAYS. 04/02 completed Not Available Not Available Not Available nystatin-tr iamcinolone 100,000 unit/g-0.1 % topical cream 12/24 completed Not Available Not Available Not Available furosemide 20 mg tablet 12/24 completed Not Available Not Available Not Available dexamethaso ne sodium phosphate 4 mg/mL injection solution Inject 2 mL by intramusc ular route for 1 day. 07/10 completed Not Available Not Available Not Available methylpredn isolone 4 mg tablets in a dose pack TAKE 6 TABS ON DAY 1, 5 TABS ON DAY 2, 4 TABS ON DAY 3, 3 TABS ON DAY 4, 2 TABS ON DAY 5, 1 TAB ON DAY 6, THEN STOP. TAKE WITH FOOD 07/10 completed Not Available Not Available Not Available ketorolac 60 mg/2 mL intramuscul ar solution Inject 2 mL every 6 hours by intramusc . route. 07/10 completed Not Available Not Available Not Available cefdinir 300 mg capsule TAKE 1 CAPSULE BY MOUTH TWICE DAILY FOR 10 DAYS 06/25 completed Not Available Not Available Not Available estradiol 0.1 mg/24 hr weekly transdermal patch APPLY 1 PATCH TOPICALLY ONCE A WEEK 04/25 completed Not Available Not Available Not Available amoxicillin 875 mg-potassiu m clavulanate 125 mg tablet TAKE 1 TABLET EVERY 12 HOURS 06/25 completed Not Available Not Available Not Available amoxicillin 500 mg-potassiu m clavulanate 125 mg tablet TAKE 1 TABLET BY MOUTH EVERY 12 HOURS. 07/10 completed Not Available Not Available Not Available Ventolin HFA 90 mcg/actuati on aerosol inhaler INHALE 2 PUFFS BY MOUTH EVERY 4 HOURS active Not Available Not Available No t Available oxycodone 5 mg tablet 02/19 completed Not Available Not Available Not Available neomycin-po lymyxin-hyd rocort 3.5 mg-10,000 unit/mL-1 % ear drops,susp INSTILL 1 DROPS INTO AFFECTED EAR(S) 3 TIMES PER DAY 01/27 completed Not Available Not Available Not Available azithromyci n 500 mg tablet 02/19 completed Not Available Not Available Not Available peg 3350-electr olytes 236 gram-22.74 gram-6.74 gram-5.86 gram solution TAKE DIRECTED. active Not Available Not Available No t Available ID NOW COVID-19 Test Kit TEST DIRECTED TODAY 04/25 completed Not Available Not Available Not Available Vitals Date Recorded Body height Body mass index (BMI) Body weight Oxygen saturation Oxygen saturation in Arterial blood by Pulse oximetry Heart rate Systolic blood pressure Diastolic blood pressure Provider Name and Address Organization Details Last Updated DateTime 4 170.18 cm 43.9 kg/m2 191824. 86 g 96 % 96 % 72 /min 150 mm[Hg] 87.99 mm[Hg] [facility] [place] 4 09:14:33 Date Recorded Body height Body mass index (BMI) Body weight Body temperature Oxygen saturation Oxygen saturation in Arterial blood by Pulse oximetry Heart rate Systolic blood pressure Diastolic blood pressure Provider Name and Address Organization Details Last Updated DateTime 4 170.18 cm 43.9 kg/m2 271269. 86 g 99.1 [degF] 99 % 99 % 75 /min 146 mm[Hg] 84 mm[Hg] Erin Wilson [facility] & [place] 4 14:21:54 Date Recorded Body height Body temperature Oxygen saturation Oxygen saturation in Arterial blood by Pulse oximetry Heart rate Systolic blood pressure Diastolic blood pressure Provider Name and Address Organization Details Last Updated DateTime 4 170.18 cm 97.5 [degF] 98 % 98 % 75 /min 132 mm[Hg] 76 mm[Hg] Nargis Duenas [facility] & [place] 4 15:32:21 Social History Question Answer Notes LastModified by [employer] Details LastModified Time Tobacco Smoking Status Never Smoker Lisa ceja, [facility] & [place] 04/25/2022 15:22:17 Do You Have An Advance Directive? No Information not available 04/25/2022 Are You Blind Or Do You Have Difficulty Seeing? No Information not available 04/25/2022 What Is Your Level Of Caffeine Consumption? Occasional API-13 Information not available 07/10/2023 What Was The Date Of Your Most Recent Tobacco Screening? 04/25/2022 Information not available 04/25/2022 Are You Passively Exposed To Smoke? No Information not available 04/25/2022 Sex: Unknown Functional Status Question Answer Note LastModified by [employer] Details LastModified Time Do you use any illicit or recreational drugs? No Information not available 04/25/2022 What is your level of alcohol consumption? None Information not available 04/25/2022 What is your exercise level? None Information not available 04/25/2022 Mental Status None recorded. Family History Relationship Description Onset Age of this Age Resolved Age Notes LastModified by Organization Details LastModified Time Father Essential hypertension [email or web address] Not available 15:20:06 Father Heart disease Not available 2021 15:25:00 Father Acute stroke [email or web address]-13 Not availab le 07/10/2023 15:20:06 Mother Essential hypertension [email or web address]-13 Not available 15:20:06 Mother Heart disease Not available 2021 15:25:00 Mother Acute stroke [email or web address]-13 Not availab le 07/10/2023 15:20:06 Medical History Condition Response Hypertension Y Gynecological HistoryNo gynecological history recorded. Obstetrics History GPAL:G 0 P 0 0 0 0 Past Encounters Encounter ID Performer Location Encounter Start Date Encounter Closed Date Diagnosis/Indication Diagnosis SNOMED-CT Code Diagnosis ICD10 Code Diagnosis Note [id number] Sapna Iglesias DO [address] [address] 04/25/2022 15:14:19 04/25/2022 15:40:31 Menopausal syndrome 461031857 N95.9 discussed with patient that as she is on hormone replacemen t she needs to stay up-to-date on mammograms . She is financiall y limited and does not have insurance coverage at this time and is concerned about the cost. I did recommend that she look into free mammograph y screening available 1 to 2 times a year in [place] or perhaps in [place]. She does have a history of hysterecto my so she does not need to be taking a break from chronic estrogen therapy otherwise this is refilled today. And we did discuss that the reason to need to stay up-to-date on mammograms is that if patient were to develop early breast cancer if it were responsive to hormone use her replacemen t use may actually encouraged to grow unknowingl y Middle ear effusion 1004 855305 H74.8X9 reassured patient that her ears do not appear to be acutely infected today. We discussed that a short course of antibiotic s has been shown to resolve middle ear effusions more quickly than steroid and these are sent in today as below. Recommende d follow-up p.r.n. with recurrence or if her symptoms do not improve with current treatment we can send in a stronger course of antibiotic s next week for further management [id number] Sapna Iglesias DO [address] [address] 09/29/2022 10:06:12 09/29/2022 10:22:30 Exposure to SARS-CoV-2 327414539 Z20.822 [id number] Sapna Iglesias [address] [address] [place] [address] 10/02/2022 15:09:25 10/02/2022 15:26:42 SARS-CoV-2 antibody detected 444305021 R76.8 [id number] Sapna Iglesias [address] [address] [facility] [place] [address] 10/06/2022 13:33:49 10/06/2022 14:29:06 Benign hypertension 09423776 I10 Blood gluc ose outside reference range 509137014 R73.09 Iron defic iency anemia 05554248 D50.9 Vitamin D deficiency 347 [address]7418 E55.9 Pain of mu ltiple joints 09987933 M25.50 Fatigue 74712415 R53.83 Screening mammography 24 979267 Z12.31 Screening colonoscopy 44 3355350 Z12.11 [id number] Sapna Iglesias [place] [address] [facility] [place] [address] 10/13/2022 13:47:39 10/13/2022 14:44:49 Pain of right elbow joint [id number] 2779180 M25.521 Edema of r ight upper limb 936618187 R60.0 History of deep vein thrombosis 319737480 Z86.718 [id number] Sapna Iglesias [place] [address] [address] [facility] [place] [address] 10/14/2022 15:35:55 10/14/2022 16:18:07 Pain of right elbow joint 8874267468 0978172 M25.521 [id number] Sapna Iglesias [place] [address] [place] [address] 10/15/2022 14:32:21 10/15/2022 15:24:36 Pain of right elbow joint 4176233973 4568573 M25.521 Obstructiv e sleep apnea syndrome 35778486 G47.33 Rosacea 319169149 L71.9 Bursitis of elbow 102101 007 M70.31 [id number] Sapna Iglesias [place] [address] [facility] [place] [address] 10/16/2022 09:20:46 10/16/2022 09:21:24 Pain of right elbow joint 4160172817 0744128 M25.521 812484 [place] [address] [place] [address] 11/26/2022 10:49:34 11/26/2022 12:02:14 Pain of right elbow joint 5476266522 6610992 M25.521 Urinary symptoms 1373134 08 R39.9 Right flank pain 9648904 09 R10.9 Bursitis o f olecranon of right elbow 8213565166 78765 M70.21 536112 [place] [address] [place] [address] 11/27/2022 13:31:57 11/27/2022 14:39:14 Pain of right elbow joint 1897700003 5871437 M25.521 Thoracic back pain 52242 8004 M54.6 Compressio n fracture of thoracic vertebra 8256859738 104 M48.54XA 495345 Sapna Iglesias [place] [address] [place] [address] 12/04/2022 10:01:09 12/04/2022 10:02:00 Pain of right elbow joint 8955885776 3487914 M25.521 Thoracic back pain 96772 8004 M54.6 448862 [place]na [place] [address] [place] [address] 12/09/2022 14:08:38 12/09/2022 15:10:39 Pain of right elbow joint 5072578934 0599353 M25.521 Acute otit is externa of right ear 0834849261 876736 H60.501 Compressio n fracture of thoracic vertebra 2195080413 104 M48.54XA 282147 Sapna Iglesias [place] [address] [place] [address] 12/24/2022 13:10:11 12/24/2022 14:52:10 Body fluid retention 73982484 R60.9 Multiple n odules of lung 922859972 R91.8 Degenerati on of thoracic intervertebral disc 27289292 M51.34 Pain of ear 300506959 H9 2.09 [id number] Sapna Iglesias [place] [address] [place] [address] 12/29/2022 14:30:36 12/29/2022 15:16:03 Essential hypertension 55698224 I10 Vitamin D deficiency 347 49019 E55.9 Body fluid retention 434 63302 R60.9 [id number] Sapna Iglesias [place] [address] [address] [place] [address] 01/27/2023 13:00:36 01/27/2023 14:09:05 Acute upper respiratory infection 93954686 J06.9 [id number] Sapna Iglesias [place] [address] [place] [address] 02/09/2023 09:25:13 02/09/2023 10:29:26 Chest wall pain 824082877 R07.89 Cough 26685283 R05.9 [id number] Adrian Dickerson MD [place] [address] [facility] [place] [address] 02/17/2023 09:08:37 02/17/2023 09:49:32 Left upper zone pneumonia 571614342 J18.1 Postoperative visit 1836 46870 Z09 [id number] Adrian Dickerson MD [place] [address] [address] [place] [address] 02/19/2023 07:49:08 02/19/2023 08:31:45 Left upper zone pneumonia 658445802 J18.1 Benign hypertension 1072 5009 I10 Body fluid retention 434 81104 R60.9 [id number] Adrian Dickerson MD [place] [address] [place] [address] 03/04/2023 09:25:20 03/04/2023 10:12:42 Body fluid retention 56544256 R60.9 Acute uppe r respiratory infection 13857442 J06.9 Chronic ob structive pulmonary disease 73680653 J44.9 [id number] Adrian Dickerson MD [place] [address] [address] [place] [address] 04/02/2023 10:02:53 04/02/2023 10:46:35 Seasonal allergy 234589536 J30.2 Blood gluc ose outside reference range 629447266 R73.09 [id number] Adrian Dickerson MD [place] [address] [place] [address] 04/27/2023 13:47:58 04/27/2023 15:09:08 Right side sciatica 2866529787 99163 M54.31 [id number] Adrian Dickerson MD [place] [address] [place] [address] 04/30/2023 08:40:48 04/30/2023 10:44:44 Pain of left hip joint 6298176528 75136 M25.552 Pain in le ft lower limb 048014308 M79.605 Left side sciatica 68706 40222 32803 M54.32 Lumbar radiculopathy 128 517191 M54.16 [id number] Adrian Dickerson MD [place] [address] [place] [address] 06/03/2023 14:32:26 06/03/2023 16:07:50 Acute maxillary sinusitis 15622533 J01.00 Pain of ear 882631378 H9 2.09 [id number] Adrian Dickerson MD [place] [address] [place] [address] 06/04/2023 13:13:08 06/04/2023 15:50:55 Acute maxillary sinusitis 66673161 J01.00 [id number] Alfred Horn MD [address] [place] [address] [place] [address] 8 06/05/2023 09:08:36 06/05/2023 10:10:25 Acute sialoadenitis 532506961 K11.21 Chronic rhinitis 8132162 6 J31.0 [id number] Alfred Horn MD [address] [place] [place] [address] 8 06/11/2023 09:56:51 06/11/2023 11:30:21 Acute sialoadenitis 432901107 K11.21 Chronic rhinitis 6538332 6 J31.0 [id number] Alfred Horn MD [address] [place] [address] [place], [place] [address] 06/11/2023 09:55:31 06/11/2023 11:27:07 Allergic rhinitis 55246765 J30.9 [id number] Adrian Dickerson MD [place] [address] [place] [address] 06/25/2023 14:12:51 06/25/2023 15:33:42 Cough 81655996 R05.9 Acute uppe r respiratory infection 21965256 J06.9 Chronic ob structive pulmonary disease 50218282 J44.9 Obstructiv e sleep apnea syndrome 53934514 G47.33 Fatigue 93068746 R53.83 Essential hypertension 13691486 I10 Iron defic iency anemia 95907543 D50.9 Vitamin D deficiency 347 84480 E55.9 [id number] Adrian Dickerson MD [place] [address] [place] [address] 07/10/2023 15:19:27 07/10/2023 16:05:44 Menopausal syndrome 465736342 N95.9 Body fluid retention 434 21192 R60.9 Chronic ob structive pulmonary disease 93042357 J44.9 Pain in le ft lower limb 749166675 M79.605 Edema of l eft lower leg 628246503 R60.0 Health Concerns Section Related Observation LastModified by Organization Detai ls LastModified Time None Recorded Concern Status LastModified by Organization Details LastModified Time None Recorded Advance Directives Directive N: Payers Insurance Date Sequence Insurance Name Policy Number Policy Mariano Covered Member ID Mariano Member ID Guarantor Name 12/12/2023 1 MEDICAID-[facility] HEALTH CHOICES - FFS/TRADITION AL Nori R Sheppervasyl [id number] Nori Sheppervasyl 12/12/2023 2 [facility]MED[place] - HMO) [id number] Nori R Shepperd [id number] Nori Sheppervasyl 12/12/2023 1 [facility] [id number] Nori Cummings [id number] Nori Sheha Notes Date Note Type Note Provider Name and Address Organization Details Recorded Time 06/05/2023 text/html Patient is here for sinus symptoms, states she has had right side facial swelling along with sinus pain and pressure. States she has been on multiple rounds of antibiotics, steroids and rocpehin shots. Patient presents for evaluation and management of sinus issues, patient swelling. Patient states right side of face slowed up acutely like a golf ball. Started on in fact and steroid with improvement. Patient states multiple ear issues sinus drainage. Some family history of lupus. Alfred Horn MD [address] [place] [address],[address], [place], [address], [facility] & [place] 06/05/2023 13:13:53 06/11/2023 text/html Patient is here for allergy follow up. Patient presents in follow-up. Had CT scan of face recently for persistent face swelling Alfred Horn MD [address] [place] [address],[address], [place], [address], [facility] & [place] 06/11/2023 13:01:13 06/25/2023 text/html patient presents to the office today for evaluation. She is experiencing upper respiratory congestion sore throat. Postnasal drainage. Headache. She has had fevers. Body aches. She has had laryngitis that started last evening. He has not sleeping well at night because of this. has a history of COPD. She has nebulizer and inhalers that she uses when needed. She has been referred to an academic computing director who is referring her to an cutting machine fixer. She still has ongoing multi joint pain. She has back pain. She does have a history of TANESHA. She uses a CPAP machine. She has a history of hypertension. She has iron deficiency anemia and vitamin-D deficiency. These are all being monitored and treated. She still continues to be fatigued. JYOTI PEDROZA [address] [place] [address],[address], [place], [address], [facility] & [place] 06/26/2023 08:11:18 07/10/2023 text/html left lower leg pain, swelling. This extends from the medial aspect of the thigh down to the ankle. She has knee pain. No trauma at the onset. This began yesterday. She is tried pfuv-dmz-buaddjt medicines without any improvement. She has increased pain with ambulation. She has increased pain with palpation. She has a difficult time flexing and extending her knee because of the increased pain. She rates her pain an 8 on a 1-10 scale. She is tender palpation in the calf and the medial aspect of the thigh JYOTI PEDROZA [address] [facility],[address], [place], [address], [facility] & [place] 07/13/2023 08:16:36 OBGyn Episode No OBEpisode recorded.
--- OUTSIDE RECORDS SUMMARY | 2024-11-10 08:44 | XMS_ITS | Encounter Summary ---
Author Organization Healthcare Address [address] [place] [address] Care Team Providers Care Sweetbread Trimmer Name Role Phone Kim Roth Primary Care Provider [phone] Loco Valente Primary Care Provider [phone] Loco Valente Unavailable [phone] Tad Hernadez MD Primary Care Provider Aye vailable Encounter Details Date Type Department Care Team (Late st Contact Info) Description 12/25/2022 [facility] [address] [place] [address] Loco Valente PA [address] [place] [address] lung screening (Primary Dx); Multiple lung nodules; Otalgia, unspecified laterality Social History Tobacco Use Types Packs/Day Years [...] as of this encounter Visit Diagnoses Diagnosis Abnormal CT lung screening- Primary Nonspecific (abnormal) findings on radiological and other examination of other intrathoracic organs Multiple lung nodules Other diseases of lung, not elsewhere classified Otalgia, unspecified laterality documented in this encounter Care Teams Sweetbread Trimmer Relationship Specialty Start Date End Date Kim Roth PA [address] [place] [address] PCP - General 10/05/20 01/13/23 Loco Valente PA [address] [place] [address] PCP - General 01/14/23 02/21/24 Tad Hernadez MD [address] [place] [address] PCP - General Family Medicine 02/22/24 Loco Valente PA [address] [place] [address] Referring Physician 01/14/23 documented as of this encounter
--- OUTSIDE RECORDS SUMMARY | 2024-11-10 08:44 | XMS_ITS | Clinical Summary ---
Author Organization [facility] Address [address] [place] [address] Care Team Providers Care Radio Electronics Technician Name Role Phone Loco Valente Unavailable [phone] Tad Hernadez MD Primary Care Provider Aye vailable Allergies Active Allergy Reactions Criticality Noted Date Comments Erythromycin Hives Medium 10/27/2018 Ibuprofen Swelling High 10/27/2018 Levofloxacin Rash High 10/27/2018 Tendon pain Medications * This document contains information received from the source organization and may not represent a complete record from that organization. albuterol (Ventolin HFA) 108 (90 Base) MCG/ACT inhaler Inhale 2 puffs if needed. 3 Active estradiol (Climara) 0.1 MG/24HR Place 1 patch on the skin 2 (two) times a week. Changed 02/04/2023 on LEFT hip Active torsemide (Demadex) 20 MG tablet Take 1 tablet (20 mg) by mouth 1 (one) time each day. 3 Active methocarbamol (Robaxin) 500 MG tablet Take 1 tablet (500 mg) by mouth 4 (four) times a day for 10 days. 40 tablet 3 Active Additional Information Patient not taking.Reported on 09/10/2023 metFORMIN (Glucophage) 1000 MG tablet Take 1 tablet (1,000 mg) by mouth. Active hydroCHLOROthia zide (HYDRODiuril) 25 MG tablet Take 1 tablet (25 mg) by mouth 1 (one) time each day. Active lisinopril-hydr oCHLOROthiazide 20-25 MG tablet Take 1 tablet by mouth 1 (one) time each day. 4 Active polyethylene glycol (MiraLax) 17 GM/SCOOP powder Take at 6pm - day before procedure. Mix Miralax 238 gram bottle with 64 ounces of Gatorade and refrigerate. Drink 8 ounces every 15 minutes starting at 6pm until completete. 238 g 4 Active bisacodyl (Dulcolax) 5 MG EC tablet Day before procedure at 4pm take 4 tablets with 8 oz of clear liquid. 4 tablet 4 Active semaglutide (Ozempic, 0.25 or 0.5 MG/DOSE,) 2 MG/1.5ML solution pen-injector inj. pen Inject 0.375 mL (0.5 mg) under the skin 1 (one) time per week. Active Active Problems Problem Noted Date Diagnosed Date Hypertension 02/07/2023 Overview (02/07/2023): - currently normotensive - will restart home medications as appopriate Postoperative pain 02/07/2023 Overview (02/07/2023): - tylenol, lidocaine patch, robaxin and oxycodone - no NSAIDS due to allergy - continue [facility] Lung nodule 02/06/2023 Overview (02/07/2023): - s/p right VATS wedge resection x2 on 02/06/23 - right chest tube in place - plan to remove chest tube 02/07. 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 02/20/2023 Fibromyalgia 03/09/2020 02/20/2023 Immunizations Immunization Administration Dates Next Due Hep B, adult 08/11/2018 Tdap 08/11/2018 Family History Medical History Relation Name Comments Conversions - Other Other 1 Degenera tive disc disease at L5-S1 level Arthritis Other 2 Cardiac disorder Other 3 Dermatomyositis Other 4 Diabetes Other 5 Hypertension Other 6 Other cancer Other 7 Colon cancer Other 8 Malig Hyperthermia Neg Hx Relation Name Status Comments Other 1 Other 2 Other 3 Other 4 Other 5 Other 6 Other 7 Other 8 Social History Tobacco Use Types Packs/Day Years Used Date Smoking Tobacco: Never Smokeless Tobacco: Never Tobacco Cessation:Counseling Given: Not Answered Alcohol Use Standard Drinks/Week Comments No 0 (1 standard drink = 0.6 oz pur e alcohol) PHQ-2 Answer Date Recorded Patient Health Questionnaire-2 Score 0 11/24/2023 CAGE ASSESSMENT Answer Date Recorded Cage unable to access Not on file 02/06/2023 Cage max number of drinks Not on file 2022 Cage Beverages a week Not on file 02/06/2023 Have you ever felt you should CUT down on your d rinking? 0 02/06/2023 Have you been ANNOYED by people criticizing your drinking? 0 02/06/2023 Have you felt GUILTY about your drinking? 0 02/06/2023 Have you had a drink first t osmel in the morning (EYE-MOBILE APPLICATION ENGINEER) to steady your nerves or to get rid of a hangover? 0 02/06/2023 CAGE Questionnaire Score 0 023 Comments No Sex and Gender Information Value Date Recorded Sex Assigned at Not on file Legal Sex Female 7:34 PM EDT Gender Identity Not on file Sexual Orientation Not on file Last Filed Vital Signs Vital Sign Reading Time Taken Comments Blood Pressure 115/67 02/22/2024 9:50 AM EDT Pulse 69 02/22/2024 9:50 AM EDT Temperature 36.8 C (98.2 F) 02/22/2024 9:15 AM EDT Respiratory Rate 14 02/22/2024 9:50 AM EDT Oxygen Saturation 100% 02/22/2024 9:50 AM EDT Inhaled Oxygen Concentration - - Weight 120 kg (265 lb 3.4 oz) 02/22/2024 7:11 AM EDT Height 170.2 cm (5' 7 ) 02/22/2024 7:11 AM EDT Body Mass Index 41.54 02/22/2024 7:11 AM EDT Plan of Treatment Health Maintenance Due Date Last Done Comments [facility]-HIV Screening 1970 [facility]-Infant/Child/Adol SDOH Screenings 1970 [facility]- SDOH Screenings 1988 [facility]-Adult SDOH Screenings 1988 [facility]-Pneumococcal Vaccine: 50 + Years (1 of 2 - PCV) 1989 CT Colonography 08/14/2015 FIT-DNA 08/14/2015 FIT 08/14/2015 FOBT 08/14/2015 Sigmoidoscopy 08/14/2015 [facility]-Hepatitis B Vaccines (2 of 3 - 19+ 3-dose series) 09/08/2018 08/11/2018 [facility]-Breast Cancer Screening 2020 [facility]-Zoster Vaccines (1 of 2) 2020 [id number]-[id number]-31 Vaccine ( - season) 2024 [facility]-Depression Screening 11/23/2024 11/24/2023 [facility]-Influenza Vaccine (Seaso n Ended) 2025 Colonoscopy 02/21/2025 02/22/2024, 09/10/2023, 01/23/2023 [facility]-Colorectal Cancer Screening 02/21/2025 [facility]-DTaP,Tdap,and Td Vaccine s (2 - Td or Tdap) 08/11/2028 08/11/2018 [facility]-Hepatitis C Screening Completed 03/09/2020 [facility]-Obesity Intervention Completed 024, 02/23/2023, 02/02/2023 HPV Vaccines Aged Out No longer eligi ble based on patient's age to complete this topic [facility]-HIB Vaccines Aged Out No longer e ligible based on patient's age to complete this topic [facility]-Hepatitis A Vaccines Aged Out No longer eligible based on patient's age to complete this topic [facility]-IPV Vaccines Aged Out No longer e ligible based on patient's age to complete this topic [facility]-Rotavirus Vaccines Aged Out No lo nger eligible based on patient's age to complete this topic Medical Devices Implanted Type Area Law Writer Device Identifier Shelf Expiration Date Model / Serial / Lot Duraclip 16mm - [id number] Implanted:Qty: 1 on 09/10/2023 by Loco Manjarrez MD at [facility]-[id number] 03/24/2024 [id number] / / [id number] Duraclip 11mm - [id number] Implanted:Qty: 1 on 02/22/2024 by Earnest Hightower MD at [facility]-[id number] 09/12/2024 [id number] / / [id number] Procedures Procedure Name Priority Date/Time Associated Diagnosis Comments COLONOSCOPY Routine 02/22/2024 9:09 AM EDT Polyp of ascending colon, unspecified type HEPATITIS C ANTIBODY W/REFLEX TO HCV QUANT PCR Routine 03/09/2020 10:39 AM EDT from Last 3 Months or Most Recently Relevant to Health Maintenance Results * Colonoscopy (02/22/2024 9:09 AM EDT) Anatomical Region Laterality Modality Endoscopy Narrative 02/22/2024 9:19 AM EDT Table formatting from the original result was not included. Impression: One polyp measuring 5-9 mm in the cecum; performed cold snare with piecemeal removal; placed clips Colonoscopy performed in the setting of known cecal polyp status post partial EMR. Sessile serrated adenoma without high-grade dysplasia. Today, colonoscopy demonstrates small burden of residual polyp at the level of the cecum. Remainder of the polyp removed with cold snare polypectomy. Clip placed at the polypectomy site to prevent postprocedure oozing. Remainder of colon without mass or lesion. Few scattered diverticula noted in the sigmoid colon. Recommend repeat colonoscopy in 1 year. Recommendations Repeat colonoscopy in 1 year Indication Order Indication: Polyp of ascending colon, unspecified type Medications See anesthesia record for anesthesia administered medications. Staff Staff Role June Turpin RN Endo Nurse Brett Solano CRNA CRNA Hourigan, Jon S, MD Proceduralist Nelda Ribera MD Proceduralist Srinivasan Mancini MD Anesthesiologist David Lind Endo Staff Services Manager Loreta Rachel Endo Nurse Preprocedure A history and physical has been performed, and patient medication allergies have been reviewed. The patient's tolerance of previous anesthesia has been reviewed. The risks and benefits of the procedure and the sedation options and risks were discussed with the patient. All questions were answered and informed consent obtained. Details of the Procedure The patient underwent monitored anesthesia care, which was administered by an anesthesia professional. The patient's blood pressure, heart rate, level of consciousness, respirations and oxygen were monitored throughout the procedure. A digital rectal exam was performed. A perianal exam was performed. The scope was introduced through the anus and advanced to the terminal ileum. Retroflexion was performed in the rectum. The quality of bowel preparation was evaluated using the [place] Bowel Preparation Scale with scores of: right colon = 2, transverse colon = 2, left colon = 2. The total BBPS score was 6. Bowel prep was adequate. The patient experienced no blood loss. The procedure was not difficult. The patient tolerated the procedure well. There were no apparent adverse events. Attestation I personally performed the entire procedure Events Procedure Events Event Event Time ENDO SCOPE IN TIME 02/22/2024 8:41 AM ENDO CECUM REACHED 02/22/2024 8:51 AM ENDO SCOPE OUT TIME 02/22/2024 9:06 AM Specimens ID Type Source Tests Collected by Time A : polyp Tissue Cecum SURGICAL PATHOLOGY EXAM Earnest Hightower MD 02/22/2024 [id number] Findings One sessile and adenomatous-appearing polyp measuring 5-9 mm in the cecum; performed cold snare with complete piecemeal removal and retrieved specimen; placed clips Earnest Hightower MD GI PROCEDURE ORDERABLES Final Result * Hepatitis C Antibody (03/09/2020 10:39 AM EDT) Hepatitis C Antibody NEGATIVE Reference Range: Negative SUNQUEST 03/09/2020 10:3 9 AM EDT 03/09/2020 11:31 AM EDT Kiley Alonzo APRN LAB BLOOD ORDERABLES Final Res ult SUNQUEST from Last 3 Months or Most Recently Relevant to Health Maintenance Insurance Advance Directives * Full Code (Latest Code Status on File) Date Activated Date Inactivated Comments 02/06/2023 3:49 PM 02/08/2023 2:34 PM Question Answer Comments Patient has decision-making capacity? Yes Care Teams Radio Electronics Technician Relationship Specialty Start Date End Date Tad Hernadez MD [address] [place], [place] [id number] PCP - General Family Medicine 02/22/24 Loco Valente PA [address] [place], [place] [address] Referring Physician 01/14/23
--- NOTE | 2024-11-10 08:45 | XR_ITS ---
FINAL REPORT TECHNIQUE: Right hip 3 views CLINICAL HISTORY: right hip pain COMPARISON: None FINDINGS: RIGHT HIP: 3 images of the right hip were obtained. There is no evidence of fracture or dislocation. The joint spaces are intact. There is no soft tissue abnormality identified. IMPRESSION: No acute bony abnormality. Reviewed, Interpreted and Dictated by Earnest Dennis MD Transcribed by Darlene Valle Authenticated and [facility]
--- NOTE | 2024-11-10 08:45 | XR_ITS ---
FINAL REPORT TECHNIQUE: Left wrist 3 views CLINICAL HISTORY: left wrist pain COMPARISON: None FINDINGS: LEFT WRIST: 3 views images of the left wrist were obtained. There is no evidence of fracture or dislocation. The joint spaces are intact. There is no soft tissue abnormality identified. IMPRESSION: No acute bony abnormality. Reviewed, Interpreted and Dictated by Earnest Dennis MD Transcribed by Darlene Valle Authenticated and . [facility]
== END 2024-11-10 23:59 | disposition home or self-care (01) ==
LOC: RAD 08:42
PROVIDERS: PCP Family Medicine; Visit Provider Physician Assistant Surgical
DX: M25.551 Pain in right hip (principal); M25.532 Pain in left wrist
CPT/HCPCS: 73110; 73502

== ENCOUNTER 2025-01-06 10:20 | Outpatient (CLI) | payer OTHER, SELFPAY ==
[2025-01-06 16:50] LABS: Hematocrit 38.9 % (37.0-47.0); Hemoglobin 12.9 g/dL (12.2-16.2); Immature Granulocytes % 0.2 %; Mean Corpuscular HGB Conc 33.2 g/dL (31.8-35.4); Mean Corpuscular Hemoglobin 29.3 pg (27.0-31.2); Mean Corpuscular Volume 88.2 fl (81-99); Nucleated Red Blood Cells % 0 %; Platelet Count 217 K/mm3 (142-424); Red Blood Count 4.41 M/mm3 (4.20-5.40); Red Cell Distribution Width-SD 45.0 fL; White Blood Count 8.1 K/mm3 (4.8-10.8)
[2025-01-06 17:25] LABS: Albumin Level 4.3 g/dl (3.5-5.0); Chloride 99 mmol/L (98-107); Sodium 136 mmol/L (136-145)
[2025-01-06 17:26] LABS: Potassium 4.4 mmoL/L (3.5-5.1)
[2025-01-06 17:28] LABS: Alanine Aminotransferase 21 U/L (12-78); Anion Gap 14.4 mEq/L (5-15); Aspartate Amino Transferase 25 U/L (14-36); Blood Urea Nitrogen 18 mg/dl (7-17); Carbon Dioxide 27 mmol/L (22.0-30.0); Creatinine,Serum 0.70 mg/dl (0.52-1.04); Estimated Glomerular Filt Rate 87 ml/min (>60); GFR (African American) 106 ML/MIN (>60)
[2025-01-06 17:29] LABS: Albumin/Globulin Ratio 1.5 (1.1-1.8); Alkaline Phosphatase 70 U/L (38-126); Bilirubin,Total 0.6 mg/dl (0.2-1.3); Calcium 8.8 mg/dl (8.4-10.2); Cholesterol 188 mg/dl (140-200); Globulin 2.9 g/dL (1.3-3.2); Glucose 64 mg/dl (74-100); HDL Cholesterol 53 mg/dl (40-60); Total Protein,Serum 7.2 g/dl (6.3-8.2); Triglycerides 107 mg/dl (30-150)
[2025-01-06 17:59] LABS: Thyroid Stimulating Hormone 1.59 uIU/mL (0.465-4.68)
[2025-01-07 06:33] LABS: Hepatitis B Surface Antigen Negative (Negative)
--- OUTSIDE RECORDS SUMMARY | 2025-01-09 13:15 | XMS_ITS | Clinical Summary ---
Author Organization [facility] Address [address] [place] [address] Care Team Providers Care Barrel Brander Name Role Phone Tad Hernadez MD Primary Care Provider [phone] Allergies Active Allergy Reactions Criticality Noted Date Comments Erythromycin Hives Medium 10/27/2018 Ibuprofen Swelling 10/27/2018 Levofloxacin Other (See Comments) High 10/27/2018 Tendon pain Medications lisinopril-hydr ochlorothiazide (PRINZIDE,ZESTO RETIC) 10-12.5 MG per tablet Take 1 tablet by mouth Daily. Active metFORMIN (GLUCOPHAGE) 1000 MG tablet Take 1 tablet by mouth 2 (Two) Times a Day With Meals. Active albuterol (ACCUNEB) 1.25 MG/3ML nebulizer solution INHALE THE CONTENTS OF 1 VIAL EVERY 4-6 HOURS NEEDED 05/23/2024 Active Ventolin HFA 108 (90 Base) MCG/ACT inhaler INHALE 2 PUFFS BY MOUTH EVERY 4 HOURS Active cephalexin (KEFLEX) 500 MG capsule take 1 capsule by mouth 2 times daily Active estradiol (VIVELLE-DOT) 0.1 MG/24HR patch APPLY 1 PATCH TO SKIN 2 TIMES WEEKLY 03/04/2024 Active Mounjaro 2.5 MG/0.5ML solution auto-injector INJECT 2.5 MG ONCE WEEKLY DIRECTED 05/27/2024 Active celecoxib (CeleBREX) 100 MG capsule Take 1 capsule by mouth Every 12 (Twelve) Hours. 06/17/2024 Active Family History Medical History Relation Name Comments Cancer Brother Noé COPD Father Devin Diabetes Father Devin Heart disease Father Devin Hyperlipidemia Father Devin Stroke Maternal Grandfather Jonn Stroke Maternal Grandmother [place] Vision loss Maternal Grandmother [place] Cancer Mother Ciarra Early Mother Ciarra Heart disease Mother Ciarra Hyperlipidemia Mother Ciarra Miscarriages / Stillbirths Mother Ciarra Stroke Mother Ciarra Thyroid disease Mother Ciarra Stroke Paternal Grandfather Honorio Stroke Paternal Grandmother Yolanda Cancer Sister Hanna Relation Name Status Comments Brother Noé Father Devin Maternal Grandfather Jonn Maternal Grandmother [place] Mother Ciarra Paternal Grandfather Honorio Paternal Grandmother Yolanda Sister Hanna Social History Tobacco Use Types Packs/Day Years Used Date Smoking Tobacco: Never Tobacco Cessation:Counseling Given: Not Answered Alcohol Use Standard Drinks/Week Comments Never 0 (1 standard drink = 0.6 oz pur e alcohol) Comments No Sex and Gender Information Value Date Recorded Sex Assigned at Not on file Legal Sex Female 6:07 PM EDT Gender Identity Not on file Sexual Orientation Not on file Last Filed Vital Signs Vital Sign Reading Time Taken Comments Blood Pressure 138/82 10/27/2018 6:16 PM EDT Pulse 84 10/27/2018 6:16 PM EDT Temperature 36.5 C (97.7 F) 06/23/2024 9:45 AM EST Respiratory Rate 12 10/27/2018 6:16 PM EDT Oxygen Saturation 99% 10/27/2018 6:16 PM EDT Inhaled Oxygen Concentration - - Weight 124 kg (272 lb 11.2 oz) 06/23/2024 9:45 A M EST Height 170.2 cm (5' 7 ) 06/23/2024 9:45 AM EST Body Mass Index 42.71 06/23/2024 9:45 AM EST Plan of Treatment Health Maintenance Due Date Last Done Comments Annual Gynecologic Pelvic an d Breast Exam 1970 Pneumococcal Vaccine 50+ (1 of 2 - PCV) 1989 MAMMOGRAM 2010 COLOGUARD 08/14/2015 COLON CANCER SCREENING 5 YEA R SIGMOIDOSCOPY 08/14/2015 CT COLONOGRAPHY 08/14/2015 FECAL OCCULT BLOOD TEST 08/14/2015 FIT Testing (1 year) 08/14/2015 ANNUAL PHYSICAL 10/27/2018 ZOSTER VACCINE (1 of 2) 2020 COVID-19 Vaccine (2023-2 5 season) 2024 INFLUENZA VACCINE 02/22/2025 TDAP/TD VACCINES (2 - Td or Tdap) 08/11/2028 019 COLONOSCOPY 02/21/2034 02/22/2024, 01/25, 09/10/2023, Additional history exists COLORECTAL CANCER SCREENING 02/21/2034 HEPATITIS C SCREENING Completed 03/09/2020 Insurance [facility] Care Teams Barrel Brander Relationship Specialty Start Date End Date Tad Hernadez MD [address] [place] [address] PCP - General Family Medicine 06/08/24
--- OUTSIDE RECORDS SUMMARY | 2025-01-09 13:15 | XMS_ITS | Encounter Summary ---
Author Organization Healthcare Address [address] [place] [address] Care Team Providers Care Asp Net C Developer Name Role Phone Kim Roth Primary Care Provider [phone] Loco Valente Primary Care Provider Loco Valente Unavailable [phone] Tad Hernadez MD Primary Care Provider Aye vailable Encounter Details Date Type Department Care Team (Late st Contact Info) Description 12/09/2022 Orders Only External Location [address] [place] [address] Provider, External Social History Tobacco Use Types [...] on filedocumented in this encounter Care Teams Asp Net C Developer Relationship Specialty Start Date End Date Kim Roth PA [address] [place] [address] PCP - General 10/05/20 01/13/23 Loco Valente PA [address] [place] [address] PCP - General 01/14/23 02/21/24 Tad Hernadez MD [address] [place] [address] PCP - General Family Medicine 02/22/24 Loco Valente PA [address] [place] [address] Referring Physician 01/14/23 documented as of this encounter
--- OUTSIDE RECORDS SUMMARY | 2025-01-09 13:15 | XMS_ITS | Clinical Summary ---
Author Organization [facility] Address [address] [place] [address] Care Team Providers Care Content Production Specialist Name Role Phone Loco Valente Unavailable [phone] Tad Hernadez MD Primary Care Provider Aye [...] no NSAIDS due to allergy - continue [facility] Lung nodule 02/06/2023 Overview (02/07/2023): - s/p [...] drink first t osmel in the morning (EYE-TALENT ACQUISITION CONSULTANT) to steady your nerves or to get [...] 2020 UKY-Zoster Vaccines (1 of 2) 2020 [id number] Vaccine (1 - season) 2024 UKY-Depression Screening 11/23/2024 11/24/2023 UKY-Influenza Vaccine (#1) 2025 Colonoscopy 02/21/2025 02/22/2024, 09/10/2023, 01/23/2023 UKY-Colorectal [...] this topic Medical Devices Implanted Type Area Supervisor Cloth Winding Device Identifier Shelf Expiration Date Model / Serial / Lot Duraclip 16mm - [id number] Implanted:Qty: 1 on 09/10/2023 by Loco Manjarrez MD at [facility] [id number] 03/24/2024 [id number] / / [id number] Duraclip 11mm - [id number] Implanted:Qty: 1 on 02/22/2024 by Earnest Hightower MD at [facility] [id number] 09/12/2024 [id number] / / [id number] Procedures Procedure Name Priority Date/Time Associated Diagnosis [...] Srinivasan Mancini MD Anesthesiologist David Lind Endo Foreign Banknote Teller Trader Loreta Rachel Endo Nurse Preprocedure A history [...] of bowel preparation was evaluated using the [place] Bowel Preparation Scale with scores of: right [...] Most Recently Relevant to [place] [address] Advance Directives * Full Code (Latest Code Status on File) Date Activated Date Inactivated Comments 02/06/2023 3:49 PM 02/08/2023 2:34 PM Question Answer Comments Patient has decision-making capacity? Yes Care Teams Content Production Specialist Relationship Specialty Start Date End Date Tad Hernadez MD [address] [place], [place] [id number] PCP - General Family Medicine 02/22/24 Loco Valente PA [address] [place] [id number] Referring Physician 01/14/23
--- OUTSIDE RECORDS SUMMARY | 2025-01-09 13:15 | XMS_ITS | Clinical Summary ---
Author Organization [employer] ([place], [place], [place], [place]) Address [address] [place] [address] Care Team Providers Care Business Banking Relationship Manager Name Role Phone Loco Valente Primary Care [...] drink = 0.6 oz pur e alcohol) Food Insecurity Answer Date Recorded Food run [...] Date Jose rded Speak language other than Ugandan at home Not on file 06/13/2023 Want help with school or training Not on file 06/13/2023 Substance Use Answer Date Recorded Used [...] VACCINE (1 - season) 2024 Influenza Vaccine (#1) 2025 DTAP/TDAP/TD VACCINES (2 - Td or Tdap) 08/11/2028 Insurance Care Teams Business Banking Relationship Manager Relationship Specialty Start Date End Date Loco Valente PA [address] [place] [address] PCP - General Physician Repairer And Checker 12/10/22
--- OUTSIDE RECORDS SUMMARY | 2025-01-09 13:15 | XMS_ITS | Referral Summary ---
Author Organization [employer] ([place], [place], [place], [place]) Address [address] [place] [address] Care Team Providers Care Home Health Registered Nurse Name Role Phone Loco Valente Primary Care [...] Date Jose rded Speak language other than Scottish at home Not on file 06/13/2023 Want [...] Plan of Treatment Not on file Insurance [facility] Care Teams Home Health Registered Nurse Relationship Specialty Start Date End Date Loco Valente PA [address] [place] [address] PCP - General Physician Hospice Consultant 12/10/22
--- OUTSIDE RECORDS SUMMARY | 2025-01-09 13:15 | XMS_ITS | Encounter Summary ---
Author Organization Healthcare Address [address] [place] [address] Care Team Providers Care Marketing Content Coordinator Name Role Phone Kim Roth Primary Care Provider [phone] Loco Valente Primary Care Provider [phone] Loco Valente Unavailable [phone] Tad Hernadez MD Primary Care Provider Aye vailable Encounter Details Date Type Department Care Team (Late st Contact Info) Description 12/25/2022 [facility] Community Practice [address] [place] [address] Loco Valente PA [address] [place] [address] lung screening (Primary [...] laterality documented in this encounter Care Teams Marketing Content Coordinator Relationship Specialty Start Date End Date Kim Roth PA [address] [place] [address] PCP - General 10/05/20 01/13/23 Loco Valente PA [address] [place] [address] PCP - General 01/14/23 02/21/24 Tad Hernadez MD [address] [place] [address] PCP - General Family Medicine 02/22/24 Loco Valente PA [address] [place] [address] Referring Physician 01/14/23 documented as of this encounter
--- OUTSIDE RECORDS SUMMARY | 2025-01-09 13:15 | XMS_ITS | Encounter Summary ---
Author Organization Healthcare Address [address] [place] [address] Care Team Providers Care Jelly Maker Name Role Phone Kim Roth Primary Care Provider [phone] Loco Valente Primary Care Provider [phone] Loco Valente Unavailable [phone] Tad Hernadez MD Primary Care Provider Aye vailable Encounter Details Date Type Department Care Team (Late st Contact Info) Description 01/01/2023 [facility] Community Practice [address] [place] [address] Loco Valente PA [address] [place] [address] Degeneration of thoracic intervertebral disc [...] disc documented in this encounter Care Teams Jelly Maker Relationship Specialty Start Date End Date Kim Roth PA [address] [place] [address] PCP - General 10/05/20 01/13/23 Loco Valente PA [address] [place] [address] PCP - General 01/14/23 02/21/24 Tad eHrnadez MD [address] [place] [address] PCP - General Family Medicine 02/22/24 Loco Valente PA [address] [place] [address] Referring Physician 01/14/23 documented as of this encounter
== END 2025-01-06 23:59 | disposition home or self-care (01) ==
LOC: LAB.DROPOF 01-09 13:11
PROVIDERS: PCP Nurse Practitioner Family; Visit Provider Nurse Practitioner Family
DX: Z11.59 Encounter for screening for other viral diseases (principal); I10 Essential (primary) hypertension; E11.9 Type 2 diabetes mellitus without complications; R39.9 Unspecified symptoms and signs involving the genitourinary system
CPT/HCPCS: 80053; 80061; 84443; 85025; 87086; 87340

== ENCOUNTER 2025-01-19 14:26 | Emergency (ER) | payer OTHER, SELFPAY ==
--- OUTSIDE RECORDS SUMMARY | 2025-01-19 14:38 | XMS_ITS | Encounter Summary ---
Author Organization [facility] Address [address] [place] [address] Care Team Providers Care Gold Tooler Name Role Phone Loco Valente PA Unavailable [phone] Tad Hernadez MD Primary Care Provider Aye vailable Reason for Referral * Imaging (Routine) - Pending Review Specialty Diagnoses / Procedures Referred By Jovanny ortiz Referred To Contact Gastroenterology Diagnoses Polyp of ascending colon, unspecified type Procedures Colonoscopy Earnest Hightower MD [address] [place] [address] Phone: tel: fax: Referral ID Status Reason Start Date Expiration Date Visits Requested Visits Authorized [id number] Pending Review Specialty Services Required 01/10/2025 07/12/2026 1 1 Encounter Details Date Type Department Care Team (Late st Contact Info) Description 01/10/2025 Orders Only [facility] General Surgery [address] [place] [address] Cristal Cole RN [facility] Polyp of ascending colon, unspecified type (Primary Dx) Social History Tobacco Use Types [...] drink first t osmel in the morning (EYE-SOLE CUTTER) to steady your nerves or to get rid of a hangover? 0 02/06/2023 CAGE Questionnaire Score 0 023 Comments No Sex and Gender Information Value Date Recorded Sex Assigned at Not on file Legal Sex Female 7:34 PM EDT Gender Identity Not on file Sexual Orientation Not on file documented as of this encounter Plan of Treatment Upcoming Encounters Date Type Department Care Team (Late st Contact Info) Description 02/20/2025 8:30 AM EDT Appointment [facility] [address] [place] [address] Earnest Hightower MD [address] [facility] [address] [place] [address] Scheduled Orders Name Type Priority Associated Diagnoses Orde r Schedule Colonoscopy Endoscopy Routine Polyp of ascending colon, unspecified type Expected: 01/10/2025, Expires: 07/14/2026 documented as of this encounter Goals Goal Patient Goal Type Associated Problems Recent Progress Patient-Stated? Author Autogenera clara Goal Care Plan Autogenerated Problem No Bernice Cole documented as of this encounter Visit Diagnoses Diagnosis Polyp of ascending colon, unspecified type- Primary documented in this encounter Additional Health Concerns Active Problems Noted Date Diagnosed Date Autogenerated Problem 01/10/2025 Assessment Noted Time A fall risk assessment has been complete d for the patient 11/24/2023 2:11 PM EDT A Body Mass Index follow-up plan has been documented for the patient 11/25/2023 3:23 PM EDT documented as of this encounter Care Teams Gold Tooler Relationship Specialty Start Date End Date Tad Hernadez MD [address] [place] [address] PCP - General Family Medicine 02/22/24 Loco Valente PA [address] [place], [place] [phone] Referring Physician 01/14/23 documented as of this encounter
--- OUTSIDE RECORDS SUMMARY | 2025-01-19 14:38 | XMS_ITS | Clinical Summary ---
Author Organization [facility] Address [address] [place] [address] Care Team Providers Care Manager Medical Affairs Name Role Phone Tad Hernadez MD Primary Care Provider [phone] Allergies Active Allergy Reactions Criticality Noted Date [...] 02/21/2034 HEPATITIS C SCREENING Completed 03/09/2020 Insurance [facility] Care Teams Manager Medical Affairs Relationship Specialty Start Date End Date Tad Hernadez MD [address] [place] [address] PCP - General Family Medicine 06/08/24
--- OUTSIDE RECORDS SUMMARY | 2025-01-19 14:38 | XMS_ITS | Encounter Summary ---
Author Organization Healthcare Address [address] [place] [address] Care Team Providers Care Assembler Body Name Role Phone Kim Roth Primary Care Provider [phone] Loco Valente Primary Care Provider Loco Valente Unavailable [phone] Tad Hernadez MD Primary Care Provider Aye vailable Encounter Details Date Type Department Care Team (Late st Contact Info) Description 12/25/2022 [facility] Community Practice [address] [place] [address] Loco Valente PA [address] [place] [address] lung screening (Primary [...] AM EDT Appointment [facility] [address] [place] [address] Earnest Hightower MD [address] [facility] [address] [place] [address] documented as of this encounter Visit Diagnoses Diagnosis Abnormal CT lung screening- Primary Nonspecific (abnormal) findings on radiological and other examination of other intrathoracic organs Multiple lung nodules Other diseases of lung, not elsewhere classified Otalgia, unspecified laterality documented in this encounter Care Teams Assembler Body Relationship Specialty Start Date End Date Kim Roth PA [address] [place] [address] PCP - General 10/05/20 01/13/23 Loco Valente PA [address] [place] [address] PCP - General 01/14/23 02/21/24 Tad Hernadez MD [address] [place] [address] PCP - General Family Medicine 02/22/24 Loco Valente PA [address] [place] [address] Referring Physician 01/14/23 documented as of this encounter
--- OUTSIDE RECORDS SUMMARY | 2025-01-19 14:38 | XMS_ITS | Encounter Summary ---
Author Organization Healthcare Address [address] [place] [address] Care Team Providers Care Reception Agent Name Role Phone Kim Roth Primary Care Provider [phone] Loco Valente Primary Care Provider Loco Valente Unavailable [phone] Tad Hernadez MD Primary Care Provider Aye vailable Encounter Details Date Type Department Care Team (Late st Contact Info) Description 12/09/2022 Orders Only External Location [address] [place] [address] Provider, External Social History Tobacco Use Types [...] AM EDT Appointment [facility] [address] [place] [address] Earnest Hightower MD [address] [facility] [address] [place] [address] documented as of this encounter Procedures Procedure Name Priority Date/Time Associated Diagnosis Comments CT CHEST W IV CONTRAST 12/09/2022 8:24 AM EDT documented in this encounter Results * CT Chest w IV Contrast (12/09/2022 8:24 AM EDT) Anatomical Region Laterality Modality Chest Computed Tomogra phy 12/09/2022 8:24 AM EDT us External Provider IMG CT PROCEDURES Final Result documented in this encounter Visit Diagnoses Not on filedocumented in this encounter Care Teams Reception Agent Relationship Specialty Start Date End Date Kim Roth PA [address] [place] [address] PCP - General 10/05/20 01/13/23 Loco Valente PA [address] [place] [address] PCP - General 01/14/23 02/21/24 Tad Hernadez MD [address] [place] [address] PCP - General Family Medicine 02/22/24 Loco Valente PA [address] [place] [address] Referring Physician 01/14/23 documented as of this encounter
--- OUTSIDE RECORDS SUMMARY | 2025-01-19 14:38 | XMS_ITS | Clinical Summary ---
Author Organization [facility] Address [address] [place] [address] Care Team Providers Care Hospitality Aide Name Role Phone Loco Valente Unavailable [phone] Tad Hernadez MD Primary Care Provider Aye [...] skin 1 (one) time per week. Active polyethylene glycol (MiraLax) 17 GM/SCOOP powder Take at 6pm - day before procedure. Mix Miralax 238 gram bottle with 64 ounces of Gatorade and refrigerate. Drink 8 ounces every 15 minutes starting at 6pm until completete. 238 g 5 Active bisacodyl (Dulcolax) 5 MG EC tablet Day before procedure at 4pm take 4 tablets with 8 oz of clear liquid. 4 tablet 5 Active Active Problems Problem Noted Date Diagnosed Date Hypertension 02/07/2023 Overview (02/07/2023): - currently normotensive - will restart home medications as appopriate Postoperative pain 02/07/2023 Overview (02/07/2023): - tylenol, lidocaine patch, robaxin and oxycodone - no NSAIDS due to allergy - continue [facility] Lung nodule 02/06/2023 Overview (02/07/2023): - s/p right VATS wedge resection x2 on 02/06/23 - right chest tube in place - plan to remove chest tube 02/07. 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 02/20/2023 Fibromyalgia 03/09/2020 02/20/2023 Encounters Date Type Department Care Team Description 01/10/2025 Orders Only [facility] General Surgery [address] [place] [address] Cristal Cole, FERCHO Polyp of ascending colon, unspecified type (Primary Dx) from Last 3 Months Immunizations Immunization Administration Dates Next Due Hep [...] drink first t osmel in the morning (EYE-PRIMER POWDER BLENDER WET) to steady your nerves or to get [...] 02/22/2024 7:11 AM EDT Plan of Treatment Upcoming Encounters Date Type Department Care Team (Late st Contact Info) Description 02/20/2025 8:30 AM EDT Appointment [facility] [address] [place] [address] Earnest Hightower MD [address] [place] [address] Health Maintenance Due Date Last Done Comments [...] 2020 UKY-Zoster Vaccines (1 of 2) 2020 [id number] Vaccine (1 - season) 2024 UKY-Depression Screening [...] on patient's age to complete this topic Goals Goal Patient Goal Type Associated Problems Recent Progress Patient-Stated? Author Autogenera clara Goal Care Plan Autogenerated Problem No Bernice Cole Medical Devices Implanted Type Area Diet Kitchen Cook Device Identifier Shelf Expiration Date Model / Serial / Lot Duraclip 16mm - [id number] Implanted:Qty: 1 on 09/10/2023 by Loco Manjarrez MD at [facility] [id number] 03/24/2024 [id number] / / [id number] Duraclip 11mm - [id number] Implanted:Qty: 1 on 02/22/2024 by Earnest Hightower MD at [facility] Endosurgery-[id number] 09/12/2024 [id number] / / [id number] Procedures Procedure Name Priority Date/Time Associated Diagnosis [...] Srinivasan Mancini MD Anesthesiologist David Lind Endo Sports Psychologist Loreta Rachel Endo Nurse Preprocedure A history [...] of bowel preparation was evaluated using the [place] Bowel Preparation Scale with scores of: right [...] piecemeal removal and retrieved specimen; placed clips us Earnest Hightower MD GI PROCEDURE ORDERABLES Final Result * Hepatitis C Antibody (03/09/2020 10:39 AM EDT) Hepatitis C Antibody NEGATIVE Reference Range: Negative SUNQUEST 03/09/2020 10:3 9 AM EDT 03/09/2020 11:31 AM EDT us Kiley Alonzo MEDICAL ASSISTANT FLOAT LAB BLOOD ORDERABLES Final Res ult SUNQUEST from Last 3 Months or Most Recently Relevant to Health Maintenance Additional Health Concerns Active Problems Noted Date Diagnosed Date Autogenerated Problem 01/10/2025 Insurance Advance Directives * Full Code (Latest Code Status on File) Date Activated Date Inactivated Comments 02/06/2023 3:49 PM 02/08/2023 2:34 PM Question Answer Comments Patient has decision-making capacity? Yes Care Teams Hospitality Aide Relationship Specialty Start Date End Date Tad Hernadez MD [address] [place] [address] PCP - General Family Medicine 02/22/24 Loco Valente PA [address] [place] [address] Referring Physician 01/14/23
--- OUTSIDE RECORDS SUMMARY | 2025-01-19 14:38 | XMS_ITS | Clinical Summary ---
Author Organization [employer] ([place], [place], [place], [place]) Address [address] [place] [address] Care Team Providers Care Middle School French Teacher Name Role Phone Loco Valente Primary Care [...] Date Jose rded Speak language other than Cymro at home Not on file 06/13/2023 Want [...] Td or Tdap) 08/11/2028 Insurance Care Teams Middle School French Teacher Relationship Specialty Start Date End Date Loco Valente PA [address] [place] [address] PCP - General Physician Steel Wheel Engraver 12/10/22
--- OUTSIDE RECORDS SUMMARY | 2025-01-19 14:38 | XMS_ITS | Referral Summary ---
Author Organization [employer] ([place], [place], [place], [place]) Address [address] [place] [address] Care Team Providers Care Agriculture Consultant Name Role Phone Loco Valente Primary Care Provider [phone] Allergies Active Allergy Reactions Criticality Noted Date [...] Date Jose rded Speak language other than Norwegian at home Not on file 06/13/2023 Want [...] Plan of Treatment Not on file Insurance [facility] Care Teams Agriculture Consultant Relationship Specialty Start Date End Date Loco Valente PA [address] [place] [address] PCP - General Physician Kinesiology Internship 12/10/22
--- OUTSIDE RECORDS SUMMARY | 2025-01-19 14:39 | XMS_ITS | Encounter Summary ---
Author Organization [facility] Address [address] [place] [address] Care Team Providers Care Breaker Boss Name Role Phone Kim Roth Primary Care Provider [phone] Loco Valente Primary Care Provider Loco Valente Unavailable [phone] Tad Hernadez MD Primary Care Provider Aye vailable Encounter Details Date Type Department Care Team (Late st Contact Info) Description 01/01/2023 Community [facility] [address] [place] [address] Loco Valente PA [address] [place] [address] Degeneration of thoracic intervertebral disc [...] AM EDT Appointment [facility] [address] [place] [address] Earnest Hightower MD [address] [facility] [address] [place] [address] documented as of this encounter Visit Diagnoses Diagnosis 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
--- NOTE | 2025-01-19 14:44 | CT_ITS ---
PROCEDURE INFORMATION: Exam: CT Neck With Contrast Exam date and time: 01/19/2025 3:38 PM Age: 54 years old Clinical indication: Other: Concern for left peritonsilar abscess TECHNIQUE: Imaging protocol: Computed tomography of the neck with contrast. Radiation optimization: All CT scans at this facility use at least one of these dose optimization techniques: automated exposure control; mA and/or kV adjustment per patient size (includes targeted exams where dose is matched to clinical indication); or iterative reconstruction. Contrast material: ISOVUE; Contrast volume: 75 ml; Contrast route: IV; COMPARISON: CT TEMPORAL BONE WITHOUT 08/15/2024 7:03 AM FINDINGS: Salivary glands: Normal. Glands are normal in size. Pharynx: Hypertrophy and heterogeneous enhancement of the palatine and adenoid tonsils without rim enhancing collections compatible with tonsillitis. Larynx: Unremarkable. Epiglottis is normal. Thyroid: Normal. No enlarged or calcified nodules. Trachea: Visualized trachea is unremarkable. Lungs: Unremarkable as visualized. Lymph nodes: Unremarkable. No lymphadenopathy. Bones/joints: Moderate loss of intervertebral disc space with degenerative changes involving C5 through T1. Soft tissues: Unremarkable. No significant soft tissue swelling. IMPRESSION: Hypertrophy and heterogeneous enhancement of the palatine and adenoid tonsils without rim enhancing collections compatible with tonsillitis.
[2025-01-19 14:54] VITALS: BP 119/68; PULSE 67; RESP 16; TEMP 36.6; O2SAT 99; BMI 40.7
[2025-01-19] MEDS: DEXAMETHASONE 4MG/ML 1ML VIAL 10 MG IV (15:15)
[2025-01-19 15:19] LABS: Hematocrit 38.2 % (37.0-47.0); Hemoglobin 12.8 g/dL (12.2-16.2); Immature Granulocytes % 0.3 %; Mean Corpuscular HGB Conc 33.5 g/dL (31.8-35.4); Mean Corpuscular Hemoglobin 29.4 pg (27.0-31.2); Mean Corpuscular Volume 87.6 fl (81-99); Nucleated Red Blood Cells % 0 %; Platelet Count 203 K/mm3 (142-424); Red Blood Count 4.36 M/mm3 (4.20-5.40); Red Cell Distribution Width-SD 43.5 fL; White Blood Count 6.5 K/mm3 (4.8-10.8)
[2025-01-19 15:24] LABS: Albumin Level 4.4 g/dl (3.5-5.0); Chloride 105 mmol/L (98-107); Sodium 138 mmol/L (136-145)
[2025-01-19 15:25] LABS: Potassium 4.0 mmoL/L (3.5-5.1)
[2025-01-19 15:27] LABS: Alanine Aminotransferase 21 U/L (12-78); Albumin/Globulin Ratio 1.4 (1.1-1.8); Alkaline Phosphatase 55 U/L (38-126); Anion Gap 11.0 mEq/L (5-15); Aspartate Amino Transferase 24 U/L (14-36); Bilirubin,Total 0.4 mg/dl (0.2-1.3); Blood Urea Nitrogen 20 mg/dl (7-17); Carbon Dioxide 26 mmol/L (22.0-30.0); Creatinine Clearance Estimated 150 mL/min (50-200); Creatinine,Serum 0.80 mg/dl (0.52-1.04); Estimated Glomerular Filt Rate 75 ml/min (>60); GFR (African American) 90 ML/MIN (>60); Globulin 3.1 g/dL (1.3-3.2); Total Protein,Serum 7.5 g/dl (6.3-8.2)
[2025-01-19 15:28] LABS: Calcium 9.5 mg/dl (8.4-10.2); Glucose 105 mg/dl (74-100)
--- NOTE | 2025-01-19 15:29 | HMH.EDGENADL ---
Discharge Plan Disposition Patient Disposition: Home, Self-Care Prescriptions Prescriptions: New amoxicillin-pot clavulanate 875-125 mg tablet 1 tab PO BID 10 Days Qty: 20 0RF No Action albuterol sulfate 1.25 mg/3 mL solution for nebulization continuous nebulization Patient Comments: INHALE THE CONTENTS OF 1 VIAL EVERY 4-6 HOURS NEEDED albuterol sulfate 90 mcg/actuation HFA aerosol inhaler inhalation Patient Comments: INHALE 2 PUFFS BY MOUTH EVERY 4-6 HOURS NEEDED levocetirizine [Xyzal] 5 mg tablet 5 mg PO DAILY Qty: 30 3RF tizanidine 4 mg tablet 4 mg PO HS PRN (Reason: muscle spasticity) Qty: 30 1RF lisinopril 10 mg tablet 10 mg PO DAILY Qty: 90 2RF hydrochlorothiazide 25 mg tablet 25 mg PO DAILY Qty: 90 2RF Mounjaro 7.5 mg/0.5 mL pen injector 7.5 mg SQ WEEKLY Qty: 2 2RF (DME) blood sugar diagnostic Strip See Rx Instructions .Route Qty: 100 2RF Rx Instructions: Pt is to test BID prn (DME) blood-glucose meter Kit See Rx Instructions .Route Qty: 1 0RF Rx Instructions: As directed (DME) lancets Misc See Rx Instructions .Route Qty: 100 0RF Rx Instructions: As directed diclofenac sodium [Arthritis Pain (diclofenac)] 1 % gel 2 g topical QID Qty: 100 2RF Rx Instructions: apply to single elbow, wrist or hand; for hand includes palm/fingers/back of hand montelukast [Singulair] 10 mg tablet 10 mg PO HS Qty: 30 2RF (DME) Aerochamber MV Spacer See Rx Instructions .Route Qty: 2 1RF Rx Instructions: As directed estradiol 0.1 mg/24 hr patch semiweekly 1 patch topical WEEKLY 30 Days Qty: 8 1RF Patient Comments: APPLY 1 PATCH TO SKIN TWICE WEEKLY sulfamethoxazole-trimethoprim [Bactrim DS] 800-160 mg tablet 1 tab PO BID 10 Days Qty: 20 0RF Referrals Follow up/Referrals: Tad Hernadez MD [Primary Care Provider, Internal Medicine] - See instructions Activity Restrictions/Add. Instructions Additional Instructions/Restrictions: You received steroids here and that should help with inflammation. You are also being sent with a course of antibiotics. Take these as prescribed. You can take Tylenol and ibuprofen to help with your symptoms. If you develop any new or worsening symptoms, such as hoarseness of your voice, difficulty swallowing or breathing, or if you become concerned for your health for any reason, return to the emergency department for evaluation Clinical Impressions Clinical Impression: Acute tonsillitis Print Language Print Language: Azeri Discharge ED Provider: Koby Downing General Adult HPI <Yuval Donovan DO - Last Filed: 01/19/25 15:36> General Chief complaint: Sore Throat Stated complaint: States she may have abscess L side Time Seen by Provider: 01/19/25 14:36 Mode of Arrival: Ambulatory Source of Information: Patient Description of Symptoms (Recalled from ER Triage Doc. by RN): Patient states she started with a sore throat yesterday 01/18/25 and then states her tonsil busted open today and started draining yellow stuff. History of Present Illness HPI narrative: This is a 54-year-old female patient, with past medical history of colon cancer, as well as hypertension and diabetes, who is presenting to the emergency department today for evaluation of throat pain. Patient states that she has had a prodrome of a viral type illness over the last couple of days including symptoms of malaise, rhinorrhea, and congestion. She has also had some left-sided ear pain. She woke up this morning with a sore throat that is chiefly on the left side of the throat. She feels some swelling as well under the left angle of the mandible. She states that she took a picture of her pharynx and sent it to her primary care provider who felt that she had an abscess of the tonsil and directed her here for emergent evaluation. She states that she has no difficulty with range of motion of her neck. No difficulty tolerating secretions. She has not noticed any changes in the quality of her voice. Related Data Home Medications ?Medication ?Instructions ?Recorded ?Confirmed albuterol sulfate 1.25 mg/3 mL mg continuous nebulization 06/16/24 01/06/25 solution for nebulization albuterol sulfate 90 mcg/actuation inhalation 06/16/24 01/06/25 aerosol inhaler Previous Rx's ?Medication ?Instructions ?Recorded blood sugar diagnostic #100 ea 10/08/23 blood-glucose meter #1 ea 10/08/23 lancets #100 ea 10/08/23 levocetirizine 5 mg tablet (Xyzal) 5 mg PO DAILY #30 tabs 07/21/24 inhalational spacing device #2 ea 08/09/24 (Aerochamber MV spacer) diclofenac sodium 1 % topical gel 2 g topical QID #100 grams 08/25/24 (Arthritis Pain (diclofenac)) montelukast 10 mg tablet 10 mg PO HS #30 tabs 10/27/24 (Singulair) estradiol 0.1 mg/24 hr semiweekly 1 patch topical WEEKLY 30 days #8 11/28/24 transdermal patch ea hydrochlorothiazide 25 mg tablet 25 mg PO DAILY #90 tabs 01/06/25 lisinopril 10 mg tablet 10 mg PO DAILY #90 tabs 01/06/25 tirzepatide 7.5 mg/0.5 mL 7.5 mg (0.5 mL) SQ WEEKLY #2 mL 01/06/25 subcutaneous pen injector (Zay) tizanidine 4 mg tablet 4 mg PO HS PRN muscle spasticity 01/06/25 #30 tabs sulfamethoxazole 800 1 tab PO BID 10 days #20 tabs 01/09/25 mg-trimethoprim 160 mg tablet (Bactrim DS) amoxicillin 875 mg-potassium 1 tab PO BID 10 days #20 tabs 01/19/25 clavulanate 125 mg tablet Allergies Allergy/AdvReac Type Severity Reaction Status Date / Time erythromycin base Allergy Intermediate I-HIVES Verified 01/06/25 09:53 ibuprofen Allergy Intermediate SWELLING Verified 01/06/25 09:53 levofloxacin (From LEVAQUIN) Allergy Unknown S-DIFF. Verified 01/06/25 09:53 BREATHING [facility] <Yuval Donovan DO - Last Filed: 01/19/25 15:36> [facility] Disclaimer: The information contained in this section may have been updated after the patient was seen, as this information can be updated by other users. Medical History Ear pain, right Bilateral temporomandibular joint pain Eustachian tube dysfunction Post-nasal drainage Mastoiditis of right side Bronchitis High risk HPV infection LGSIL Pap smear of vagina Skin tag of vulva Vasomotor symptoms due to menopause Sinusitis Otitis media Benign paroxysmal positional vertigo Asthma exacerbation Laryngitis Lumbar arthropathy Abdominal pain Low back pain Colon cancer Surgical History History of colonoscopy History of cholecystectomy History of hysterectomy Family History Grandmother Cancer Father Coronary artery disease Diabetes Hypertension Heart attack Mother Stroke Hypertension Social History Smoking Status: Never smoker alcohol intake: never substance use type: denies use current occupational status: employed Travel in the last 8 weeks?: None household members: significant other and other housing: house 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 [employer] Have you lived/traveled outside US in past 30 days?: No Contact w/someone who lives/traveled outside US past 30 days?: No Exposure to someone with infectious disease in past 14 days?: No Do you have a fever (greater than 100.4 F or 38 C)?: No Have you tested positive for COVID-19?: No Exposed to someone with COVID-19 in past 14 days?: No Do you have a sore throat?: Yes Do you have a cough?: No Do you have any weakness?: No Do you have any diarrhea?: No Are you experiencing any unusual bleeding?: No Do you have any muscle aches/pain?: No Do you have any abdominal pain?: No Are you experiencing loss of taste or smell?: No Other Medical History Have you received the Flu Vaccine for this season: No Have you received the Pneumonia Vaccine: No <Yuval Donovan DO - Last Filed: 01/19/25 15:36> ROS Obtained: Yes Systems reviewed as appropriate & no additional complaints except as documented Physical Exam <Yuval Donovan DO - Last Filed: 01/19/25 15:36> General General appearance: other (See MDM) Respiratory Respiratory exam: Present other (See MDM) Cardiovascular Cardiovascular exam: Present other (See MDM) Neurological Exam Neurological exam: Present other (See MDM) Medical Decision Making <DO Romulo Thompson Last Filed: 01/19/25 15:36> Medical Records Medical records reviewed: Yes I reviewed the patient's medical records. Screening: Per USPSTF and CDC recommendations, given the prevalence of disease in our region, it is our hospital?s policy to screen for HIV and viral Hepatitis for all patients aged 18 and over and those with ongoing risk factors. Enoch Inquiry Pt receiving controlled substance: No Enoch was queried for this patient: No Vital Signs: 01/19/25 14:54 Temperature 97.8 F Temperature Source Oral Pulse Rate [Left Brachial] 67 Respiratory Rate 16 Blood Pressure [Left Arm] 119/68 Blood Pressure Mean [Left Arm] 85 Blood Pressure Source [Left Arm] Automatic Cuff Blood Pressure Position [Left Arm] Sitting 02 Sat by Pulse Oximetry 99 Oxygen Delivery Method Room Air Lab Data Lab Results 01/19/25 15:07: WBC 6.5, RBC 4.36, Hgb 12.8, Hct 38.2, MCV 87.6, MCH 29.4, MCHC 33.5, RDW 13.7, Plt Count 203, MPV 10.5 H, Neut % (Auto) 57.3, Lymph % (Auto) 32.5, T[place] % (Auto) 6.6, Eos % (Auto) 2.5, Baso % (Auto) 0.8, Neut # (Auto) 3.7, Lymph # (Auto) 2.1, Tarrant # (Auto) 0.4, Eos # (Auto) 0.2, Baso # (Auto) 0.1, Sodium 138, Potassium 4.0, Chloride 105, Carbon Dioxide 26, Anion Gap 11.0, BUN 20 H, Creatinine 0.80, Estimated Creat Clear 150, Estimated GFR 75, Est GFR ( Amer) 90, Glucose 105 H, Calcium 9.5, Total Bilirubin 0.4, AST 24, ALT 21, Alkaline Phosphatase 55, C-Reactive Protein 6.2 H, Total Protein 7.5, Albumin 4.4, Globulin 3.1, Albumin/Globulin Ratio 1.4 01/19/25 15:50: SARS-CoV-2 (PCR) Not detected, Influenza Type A (PCR) Not detected, Influenza Type B (PCR) Not detected, RSV (PCR) Not detected, Rhinovirus (PCR) Not detected 01/19/25 15:07 01/19/25 15:07 Orders (Tests/Meds): ED MEDICATIONS Generic Name Dose Route Start Last Admin Trade Name Freq PRN Reason Stop Dose Admin Amoxicillin/Clavulanate Potassium 1 each 01/19/25 18:51 Amoxicillin/Clavulanate Potassium 875/125mg Tablet PO 01/19/25 18:52 ONCE ONE Sodium Chloride 10 ml 01/19/25 15:38 01/19/25 15:38 Sodium Chloride 0.9% 10ml Syr (Rad Only) IV 02/18/25 15:37 10 ml NEEDED PRN Administration Maintain IV Site Discontinued Medications Generic Name Dose Route Start Last Admin Trade Name Fatimah PRN Reason Stop Dose Admin Dexamethasone Sodium Phosphate 10 mg 01/19/25 14:45 01/19/25 15:15 Dexamethasone 4mg/Ml 1ml Vial IV 01/19/25 14:46 10 mg ONCE ONE Administration Iopamidol 75 ml 01/19/25 15:38 01/19/25 15:38 Iopamidol-370 (76%);100ml Bottle IV 01/19/25 15:39 75 ml ONCE ONE Administration ORDERS Category Date Time Status CT soft tissue neck w con Stat Cat Scan 01/19/25 14:44 Completed CBC w/Auto Diff [Complete Blood Count Auto Diff] Stat Lab 01/19/25 15:07 Completed CMP [Comprehensive Metabolic Panel] Stat Lab 01/19/25 15:07 Completed CRP [C-Reactive Protein] Stat Lab 01/19/25 15:07 Completed Mini Respiratory Panel Stat Lab 01/19/25 15:50 Completed Medical Decision Narrative: In summary, this is a 54-year-old female patient who is presenting to the emergency department today with concerns for left tonsillar abscess after 2 to 3 days of a viral prodrome and now waking up with a sore throat chiefly on the left side of her throat. Patient's comorbidities include hypertension and diabetes as well as colon cancer. On initial evaluation of the patient they were resting comfortably in no acute distress and nontoxic in appearance. They are hemodynamically stable, saturating well room air, and are neurologically intact. On physical examination the patient has a GCS of 15 and is alert and appropriately interactive. She has normal heart and lung sounds bilaterally. On otoscopic exam her TMs are nonbulging and nonerythematous bilaterally. There is no purulence behind the TM. She does have lymph nodes under the left angle of the mandible that are tender to palpation. On examination of the oropharynx the left tonsil is ever so slightly encroaching on the midline more so than the right tonsil. The tonsil does not look particularly inflamed and there appears to be a tonsillar stone present within one of the tonsillar fossa. There is no overt tonsillar exudates. She does have tenderness on palpation of the tonsillar pillar on the left. The uvula remains in the midline. She has no muffled voice. She is tolerating secretions well. She has no tenderness of the neck itself and she has no pain with rotational movement of the neck. Given my examination, I am honestly underwhelmed at her primary care physician's impression of peritonsillar abscess. Differential diagnosis includes peritonsillar abscess, retropharyngeal abscess, tonsillar abscess, tonsillitis, parapharyngeal abscess, among others. Additionally, this could be a simple viral pharyngitis. Given the fact that she does not have any palatal petechiae and she has no tonsillar exudates I do not feel that her presentation is consistent with streptococcal pharyngitis. Workup was initiated with hematologic labs including a CRP and ESR. We will also obtain a CT scan of the neck soft tissues with IV contrast. I have administered dexamethasone 10 mg IV to the patient for her throat pain. At the time of shift change the patient's labs and imaging were pending. This case was handed off to Dr. Downing who will follow-up on these results and disposition the patient appropriately. <Koby Downing MD - Last Filed: 01/19/25 18:55> Vital Signs: 01/19/25 14:54 Temperature 97.8 F Temperature Source Oral Pulse Rate [Left Brachial] 67 Respiratory Rate 16 Blood Pressure [Left Arm] 119/68 Blood Pressure Mean [Left Arm] 85 Blood Pressure Source [Left Arm] Automatic Cuff Blood Pressure Position [Left Arm] Sitting 02 Sat by Pulse Oximetry 99 Oxygen Delivery Method Room Air Lab Data Lab Results 01/19/25 15:07: WBC 6.5, RBC 4.36, Hgb 12.8, Hct 38.2, MCV 87.6, MCH 29.4, MCHC 33.5, RDW 13.7, Plt Count 203, MPV 10.5 H, Neut % (Auto) 57.3, Lymph % (Auto) 32.5, Tarrant % (Auto) 6.6, Eos % (Auto) 2.5, Baso % (Auto) 0.8, Neut # (Auto) 3.7, Lymph # (Auto) 2.1, Tarrant # (Auto) 0.4, Eos # (Auto) 0.2, Baso # (Auto) 0.1, Sodium 138, Potassium 4.0, Chloride 105, Carbon Dioxide 26, Anion Gap 11.0, BUN 20 H, Creatinine 0.80, Estimated Creat Clear 150, Estimated GFR 75, Est GFR ( Amer) 90, Glucose 105 H, Calcium 9.5, Total Bilirubin 0.4, AST 24, ALT 21, Alkaline Phosphatase 55, C-Reactive Protein 6.2 H, Total Protein 7.5, Albumin 4.4, Globulin 3.1, Albumin/Globulin Ratio 1.4 01/19/25 15:50: SARS-CoV-2 (PCR) Not detected, Influenza Type A (PCR) Not detected, Influenza Type B (PCR) Not detected, RSV (PCR) Not detected, Rhinovirus (PCR) Not detected Orders (Tests/Meds): ED MEDICATIONS Generic Name Dose Route Start Last Admin Trade Name Freq PRN Reason Stop Dose Admin Amoxicillin/Clavulanate Potassium 1 each 01/19/25 18:51 Amoxicillin/Clavulanate Potassium 875/125mg Tablet PO 01/19/25 18:52 ONCE ONE Sodium Chloride 10 ml 01/19/25 15:38 01/19/25 15:38 Sodium Chloride 0.9% 10ml Syr (Rad Only) IV 02/18/25 15:37 10 ml NEEDED PRN Administration Maintain IV Site Discontinued Medications Generic Name Dose Route Start Last Admin Trade Name Freq PRN Reason Stop Dose Admin Dexamethasone Sodium Phosphate 10 mg 01/19/25 14:45 01/19/25 15:15 Dexamethasone 4mg/Ml 1ml Vial IV 01/19/25 14:46 10 mg ONCE ONE Administration Iopamidol 75 ml 01/19/25 15:38 01/19/25 15:38 Iopamidol-370 (76%);100ml Bottle IV 01/19/25 15:39 75 ml ONCE ONE Administration ORDERS Category Date Time Status CT soft tissue neck w con Stat Cat Scan 01/19/25 14:44 Completed CBC w/Auto Diff [Complete Blood Count Auto Diff] Stat Lab 01/19/25 15:07 Completed CMP [Comprehensive Metabolic Panel] Stat Lab 01/19/25 15:07 Completed CRP [C-Reactive Protein] Stat Lab 01/19/25 15:07 Completed Mini Respiratory Panel Stat Lab 01/19/25 15:50 Completed Medical Decision Narrative: In summary, this is a 54-year-old female patient who is presenting to the emergency department today with concerns for left tonsillar abscess after 2 to 3 days of a viral prodrome and now waking up with a sore throat chiefly on the left side of her throat. Patient's comorbidities include hypertension and diabetes as well as colon cancer. On initial evaluation of the patient they were resting comfortably in no acute distress and nontoxic in appearance. They are hemodynamically stable, saturating well room air, and are neurologically intact. On physical examination the patient has a GCS of 15 and is alert and appropriately interactive. She has normal heart and lung sounds bilaterally. On otoscopic exam her TMs are nonbulging and nonerythematous bilaterally. There is no purulence behind the TM. She does have lymph nodes under the left angle of the mandible that are tender to palpation. On examination of the oropharynx the left tonsil is ever so slightly encroaching on the midline more so than the right tonsil. The tonsil does not look particularly inflamed and there appears to be a tonsillar stone present within one of the tonsillar fossa. There is no overt tonsillar exudates. She does have tenderness on palpation of the tonsillar pillar on the left. The uvula remains in the midline. She has no muffled voice. She is tolerating secretions well. She has no tenderness of the neck itself and she has no pain with rotational movement of the neck. Given my examination, I am honestly underwhelmed at her primary care physician's impression of peritonsillar abscess. Differential diagnosis includes peritonsillar abscess, retropharyngeal abscess, tonsillar abscess, tonsillitis, parapharyngeal abscess, among others. Additionally, this could be a simple viral pharyngitis. Given the fact that she does not have any palatal petechiae and she has no tonsillar exudates I do not feel that her presentation is consistent with streptococcal pharyngitis. Workup was initiated with hematologic labs including a CRP and ESR. We will also obtain a CT scan of the neck soft tissues with IV contrast. I have administered dexamethasone 10 mg IV to the patient for her throat pain. At the time of shift change the patient's labs and imaging were pending. This case was handed off to Dr. Downing who will follow-up on these results and disposition the patient appropriately. Koby Downing MD At the assumption of my care, patient's workup and CT imaging were pending at this time. Patient does not have a leukocytosis, CMP unremarkable nonactionable. CRP is very mildly elevated 6.2. Grossly nonactionable. CT imaging was interpreted by me personally. No evidence of peritonsillar or retropharyngeal abscess. Per radiology, patient does have hypertrophy and heterogenous enhancement of the palate teen and adenoid tonsils without rim-enhancing collections compatible with tonsillitis. On my assessment the patient, the patient does have some tonsillar erythema and a tonsil stone on the left but no exudates. Patient received a 10 mg of IV dexamethasone here in the emergency department. Will administer 1 dose of Augmentin here and send with a course of p.o. Augmentin for possible bacterial etiology of her tonsillitis. Strict return precautions were given. All questions were answered. She demonstrated understanding and was in agreement this plan. She was then discharged from the emergency department in stable condition. Critical Care <Yuval Donovan DO - Last Filed: 01/19/25 15:36> Critical Care Time Critical Care Time: No
[2025-01-19 15:33] LABS: C-Reactive Protein 6.2 mg/L (0-4)
[2025-01-19] MEDS: IOPAMIDOL-370 (76%);100ML BOTTLE 75 ML IV (15:38)
[2025-01-19] MEDS: SODIUM CHLORIDE 0.9% 10ML SYR (RAD ONLY) 10 ML IV (15:38)
[2025-01-19 15:58] LABS: Coronavirus 19, PCR Not Detected (NotDetected); Influenza A, PCR Not Detected (NotDetected); Influenza B, PCR Not Detected (NotDetected)
[2025-01-19] MEDS: AMOXICILLIN/CLAVULANATE POTASSIUM 875/125MG TABLET 1 EACH PO (19:05)
[2025-01-19 19:16] VITALS: BP 121/65; PULSE 76; RESP 20; TEMP 36.8; O2SAT 98
== END 2025-01-19 19:17 | disposition home or self-care (01) ==
PROVIDERS: Student in an Organized Health Care Education/Training Program; Emergency Provider Student in an Organized Health Care Education/Training Program; PCP Family Medicine
DX: J03.90 Acute tonsillitis, unspecified (principal); I10 Essential (primary) hypertension; E11.9 Type 2 diabetes mellitus without complications
CPT/HCPCS: 70491; 80053; 85025; 86140; 87631; 96374; 99282; 99284; J1100; Q9967

== ENCOUNTER 2025-02-01 09:13 | Outpatient (CLI) | payer OTHER, SELFPAY ==
--- NOTE | 2025-02-01 09:14 | XR_ITS ---
FINAL REPORT CLINICAL HISTORY: left hip pain COMPARISON: None FINDINGS: AP and frog leg views of the left hip were obtained. There is no acute fracture or dislocation. Degenerative joint disease is present. Soft tissues are unremarkable. IMPRESSION: No acute osseous abnormality of the left hip. Reviewed, Interpreted and Dictated by Yeni García MD Transcribed by Darlene Valle Authenticated and . [facility]
--- OUTSIDE RECORDS SUMMARY | 2025-02-01 09:28 | XMS_ITS | Encounter Summary ---
Author Organization [facility] Address [address] [place] [address] Care Team Providers Care Machine Operator General Name Role Phone Kim Roth Primary Care Provider [phone] Loco Valente Primary Care Provider Loco Valente Unavailable Tad Hernadez MD Primary Care Provider Aye vailable Encounter Details Date Type Department Care Team (Late st Contact Info) Description 01/01/2023 Community [facility] Community Practice [address] [place] [address] Loco Valente PA [address] [place] [address] Degeneration of thoracic intervertebral disc [...] AM EDT Appointment [facility] [address] [place] [address] Earnest Hightower MD [address] [facility] [address] [place] [address] documented as of this encounter Visit Diagnoses Diagnosis 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
--- OUTSIDE RECORDS SUMMARY | 2025-02-01 09:28 | XMS_ITS | Encounter Summary ---
Author Organization Healthcare Address [address] [place] [address] Care Team Providers Care Rectifying Operator Name Role Phone Kim Roth Primary Care Provider [phone] Loco Valente Primary Care Provider Loco Valente Unavailable [phone] Tad Hernadez MD Primary Care Provider Aye vailable Encounter Details Date Type Department Care Team (Late st Contact Info) Description 12/09/2022 Orders Only External Location [address] [place] [id number] Provider, External Social History Tobacco Use Types [...] AM EDT Appointment [facility] [address] [place] [id number] Earnest Hightower MD [address] [facility] [address] [place] [id number] documented as of this encounter Procedures Procedure [...] on filedocumented in this encounter Care Teams Rectifying Operator Relationship Specialty Start Date End Date Kim Roth PA [address] [place] [address] PCP - General 10/05/20 01/13/23 Loco Valente PA [address] [place] [address] PCP - General 01/14/23 02/21/24 Tad Hernadez MD [address] [place] [address] PCP - General Family Medicine 02/22/24 Loco Valente PA [address] [place] [address] Referring Physician 01/14/23 documented as of this encounter
--- OUTSIDE RECORDS SUMMARY | 2025-02-01 09:28 | XMS_ITS | Encounter Summary ---
Author Organization Healthcare Address [address] [place] [address] Care Team Providers Care Automatic Mold Sander Name Role Phone Kim Roth Primary Care Provider [phone] Loco Valente Primary Care Provider [phone] Loco Valente Unavailable [phone] Tad Hernadez MD Primary Care Provider Aye vailable Encounter Details Date Type Department Care Team (Late st Contact Info) Description 12/25/2022 Community [facility] [address] [place] [address] Loco Valente PA [address] [place] [address] lung screening (Primary [...] AM EDT Appointment [facility] [address] [place] [address] Earnest Hightower MD [address] [facility] [address] [place] [address] documented as of this encounter Visit Diagnoses Diagnosis Abnormal CT lung screening- Primary Nonspecific (abnormal) findings on radiological and other examination of other intrathoracic organs Multiple lung nodules Other diseases of lung, not elsewhere classified Otalgia, unspecified laterality documented in this encounter Care Teams Automatic Mold Sander Relationship Specialty Start Date End Date Kim Roth PA [address] [place] [address] PCP - General 10/05/20 01/13/23 Loco Valente PA [address] [place] [address] PCP - General 01/14/23 02/21/24 Tad Hernadez MD [address] [place] [address] PCP - General Family Medicine 02/22/24 Loco Valente PA [address] [place] [address] Referring Physician 01/14/23 documented as of this encounter
--- OUTSIDE RECORDS SUMMARY | 2025-02-01 09:28 | XMS_ITS | Patient Health Record ---
Author Organization [facility] Address [address] [id number] Care Team Providers Care Acute Care Certified Nursing Assistant Name Role Phone Jennifer Camara Unavailable [phone] Allergies Allergen (clinical drug ingredient) Drug/Non Drug Allergy documented on EMR Reaction Allergy Type Onset Date Status erythromycin Erythromycin hives Drug Allergy A ctive ibuprofen Ibuprofen swelling Drug Allergy Active Reason For Referral No Information Medications Medication SIG (Take, Route, Frequency, Duration) Notes Start Date End Date Status Lisinopril-hydroCHLOROthia zide 20-25 MG 1 tab(s) orally once a day; Duration: 30 day(s) 08/11/2013 Active Immunizations Vaccine Route Administration Date Status Comme nts ppd SC Subcutaneous 08/30/2013 Administered Problems Problem Type SNOMED Code ICD Code Onset Dates Problem Status W/U Status Risk Notes Problem Hypertension (76116524) Hypertension NOS (401.9) Active confirmed Problem Vertigo (618709922) Vertigo (438.85) Active confirmed Plan Of Treatment No Information Medical (General) History Medical History History ICD Code HTN Surgical History Surgery Date(Month/Year) X 2 gallbladder removed wisdom teeth removed Hospitalization History Reason Date(Month/Year) [facility] ER-right arm pain 08/03/13
--- OUTSIDE RECORDS SUMMARY | 2025-02-01 09:28 | XMS_ITS | Encounter Summary ---
Author Organization [facility] Address [address] [place] [address] Care Team Providers Care Exerciser Name Role Phone Loco Valente PA Unavailable [phone] Tad Hernadez MD Primary Care Provider Aye vailable Reason for Referral * Imaging (Routine) - Authorized Specialty Diagnoses / Procedures Referred By Jovanny ortiz Referred To Contact Gastroenterology Diagnoses Polyp of ascending colon, unspecified type Procedures Colonoscopy Earnest Hightower MD [address] [place] [address] Phone: tel: fax: Referral ID Status Reason Start Date Expiration Date Visits Requested Visits Authorized [id number] Authorized Specialty Services Required 01/10/2025 07/12/2026 1 1 Encounter Details Date Type Department Care Team (Late st Contact Info) Description 01/10/2025 Orders Only [facility] General Surgery [address] [place] [address] Cristal Cole RN AMB-GENERAL SURGERY [...] drink first t osmel in the morning (EYE-CLINICAL PSYCHOLOGIST LICENSED) to steady your nerves or to get [...] Appointment [facility] [address] [place] [address] Earnest Hightower MD [address] [place] [address] Scheduled Orders Name Type Priority Associated Diagnoses Orde r Schedule Colonoscopy Endoscopy Routine Polyp of ascending colon, unspecified type Expected: 01/10/2025, Expires: 07/14/2026 documented as of this encounter Goals Goal Patient Goal Type Associated Problems Recent Progress Patient-Stated? Author Autogenera clara Goal Care Plan Autogenerated Problem Bernice Nix documented as of this encounter Visit Diagnoses [...] documented as of this encounter Care Teams Exerciser Relationship Specialty Start Date End Date Tad Hernadez MD [address] [place] [address] PCP - General Family Medicine 02/22/24 Loco Valente PA [address] [phone] Referring Physician 01/14/23 documented as of this encounter
--- OUTSIDE RECORDS SUMMARY | 2025-02-01 09:28 | XMS_ITS | Clinical Summary ---
Author Organization [facility] Address [address] [place] [address] Care Team Providers Care Neurology Manager Name Role Phone Tad Hernadez MD Primary Care Provider [phone] Allergies Active Allergy Reactions Criticality Noted Date [...] 2) 2020 COVID-19 Vaccine (2023-2 5 season) 2025 INFLUENZA VACCINE 02/22/2025 TDAP/TD VACCINES (2 - Td or Tdap) 08/11/2028 019 COLONOSCOPY 02/21/2034 02/22/2024, 01/25, 09/10/2023, Additional history exists COLORECTAL CANCER SCREENING 02/21/2034 HEPATITIS C SCREENING Completed 03/09/2020 Insurance [facility] Care Teams Neurology Manager Relationship Specialty Start Date End Date Tad Hernadez MD [address] [place] [address] PCP - General Family Medicine 06/08/24
--- OUTSIDE RECORDS SUMMARY | 2025-02-01 09:28 | XMS_ITS | Clinical Summary ---
Author Organization [facility] Address [address] [place] [address] Care Team Providers Care Full Time Babysitter Name Role Phone Loco Valente Unavailable [phone] aTd Hernadez MD Primary Care Provider Aye vailable [...] no NSAIDS due to allergy - continue [facility] Lung nodule 02/06/2023 Overview (02/07/2023): - s/p right VATS wedge resection x2 on 02/06/23 - right chest tube in place - plan to remove chest tube 02/07. 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 02/20/2023 Fibromyalgia 03/09/2020 02/20/2023 Encounters Date Type Department Care Team Description 01/10/2025 Orders Only [facility] General Surgery [address] [place] [address] Cristal Cole, FERCHO Polyp of [...] drink first t osmel in the morning (EYE-VP GENETIC) to steady your nerves or to get [...] Appointment [facility] [address] [place] [address] Earnest Hightower MD [address] [place] [address] Health Maintenance Due Date Last [...] 2020 [facility]-Zoster Vaccines (1 of 2) 2020 [facility]-Depression Screening 11/23/2024 11/24/2023 [id number] Vaccine (1 - 2023- season) 2025 [facility]-Influenza Vaccine (#1) 2025 Colonoscopy 02/21/2025 02/22/2024, [...] Bernice Cole Medical Devices Implanted Type Area 8Th Grade Teacher Device Identifier Shelf Expiration Date Model / Serial / Lot Duraclip 16mm - [id number] Implanted:Qty: 1 on 09/10/2023 by Loco Manjarrez MD at [facility]-[id number] 03/24/2024 [id number] / / [id number] Duraclip 11mm - [id number] Implanted:Qty: 1 on 02/22/2024 by Earnest Hightower MD at [facility] Endosurgery-[id number] 09/12/2024 [id number] / / [id number] Procedures Procedure Name Priority Date/Time Associated Diagnosis [...] Srinivasan Mancini MD Anesthesiologist David Lind Endo Field Agent Loreta Rachel Endo Nurse Preprocedure A history [...] of bowel preparation was evaluated using the Adams Bowel Preparation Scale with scores of: right [...] 03/09/2020 11:31 AM EDT us Kiley Alonzo [employer] LAB BLOOD ORDERABLES Final Res ult SUNQUEST from Last 3 Months or Most Recently Relevant to Health Maintenance Additional Health Concerns Active Problems Noted Date Diagnosed Date Autogenerated Problem 01/10/2025 Insurance Advance Directives * Full Code (Latest Code Status on File) Date Activated Date Inactivated Comments 02/06/2023 3:49 PM 02/08/2023 2:34 PM Question Answer Comments Patient has decision-making capacity? Yes Care Teams Full Time Babysitter Relationship Specialty Start Date End Date Tad Hernadez MD [address] [place] [address] PCP - General Family Medicine 02/22/24 Loco Valente PA [address] [place] [address] Referring Physician 01/14/23
== END 2025-02-01 23:59 | disposition home or self-care (01) ==
LOC: RAD 09:14
PROVIDERS: Visit Provider Physician Assistant
DX: M25.552 Pain in left hip (principal)
CPT/HCPCS: 73502

== ENCOUNTER 2025-04-11 10:48 | Outpatient (CLI) | payer OTHER, SELFPAY | END 2025-04-11 23:59 | disposition home or self-care (01) | LOC: LAB.DROPOF 04-12 12:19 | PROVIDERS: PCP Family Medicine; Visit Provider Family Medicine | DX: R39.9 Unspecified symptoms and signs involving the genitourinary system (principal) | CPT/HCPCS: 87086 ==